=== PATIENT | female | born 1960 | race Caucasian/White ===

== ENCOUNTER 2021-09-15 18:05 | Inpatient (IN) | payer MEDICAID, OTHER ==
[~2021-09-15] VITALS: Ht 165.1 cm; Wt 117.9 kg
[2021-09-15] MEDS ORDERED: ASPirin 81 mg TAB PO ONE (19:00)
[2021-09-15 20:17] LABS: Basophils # (auto) 0 10 ^3/uL (0-0.2); Basophils % (auto) 0.7 % (0.0-2.0); Eosinophils # (auto) 0 10 ^3/uL (0-0.8); Eosinophils % (auto) 0.3 % (0.0-7.0); Hematocrit 48.9 % (36.0-46.0); Hemoglobin 16.4 g/dL (12.2-16.2); Lymphocytes # (auto) 1.1 10 ^3/uL (0.4-5.4); Lymphocytes % (auto) 33.2 % (10.0-50.0); Mean Corpuscular Hemoglobin 30.3 pg (28.0-32.0); Mean Corpuscular Hgb Conc. 33.6 g/dL (32.0-36.0); Mean Corpuscular Volume 90.1 fL (80.0-100.0); Monocytes # (auto) 0.4 10 ^3/uL (0-1.3); Monocytes % (auto) 11.3 % (0.0-12.0); Neutrophils # (auto) 1.8 10 ^3/uL (1.6-8.6); Neutrophils % (auto) 54.5 % (37.0-80.0); Nucleated Red Blood Cells % 0.8 %; Red Blood Cells 5.42 10^6/uL (4.0-5.20); Red Cell Distribution Width 13.1 % (11.8-14.3); White Blood Cell 3.3 10^3/uL (4.4-10.8)
[2021-09-15 20:27] LABS: Albumin 3.4 g/dL (3.4-5.0); Calcium 8.4 mg/dL (8.5-10.1); Magnesium 2.5 mg/dL (1.6-2.6); Potassium 4.2 mmol/L (3.5-5.1)
[2021-09-15 20:33] LABS: BUN/Creatinine Ratio 11.3; Bilirubin, Total 0.5 mg/dL (0.2-1.0); Total Protein 7.1 g/dL (6.4-8.2)
[2021-09-15 23:52] LABS: Urine Bacteria FEW /hpf (None Seen); Urine Blood Negative /uL (Negative); Urine Mucus FEW (None Seen); Urine Specific Gravity 1.024 (1.001-1.035); Urine WBC 3 /hpf (0 - 5)
[2021-09-16] MEDS ORDERED: IOHEXOL 350 MG/ML 100ML IJ ONE (02:10)
[2021-09-16] MEDS ORDERED: SODIUM CHLORIDE 0.9% 1,000 ML IV ONE (02:15)
[2021-09-16] MEDS ORDERED: HYDROcodone-ACET 10/325MG TAB PO ONE (09:30)
[2021-09-16] MEDS ORDERED: AZITHROMYCIN 500MG/ 250ML 250 ML IV ONE (10:15)
[2021-09-16] MEDS ORDERED: cefTRIAXone 1GM/50ML D5W 50 ML IV ONE (10:15)
[2021-09-16] MEDS ORDERED: DexAMETHasone SOD PHOS 10MG/1ML VIAL INJ IV ONE (10:15)
[2021-09-16] MEDS ORDERED: ASCORBIC ACID 500 MG TAB PO ONE (10:30)
[2021-09-16] MEDS ORDERED: ZINC SULFATE 220mg CAP or TAB PO ONE (10:30)
[2021-09-16] MEDS ORDERED: CHOLECALCIFEROL (VITD3) 2,000 UNIT CAP/TAB PO ONE (10:30)
[2021-09-16] MEDS ORDERED: MORPHINE SULFATE INJECTION 2 MG/ML SYRG IV PRN ×2 (13:15→15:00)
[2021-09-16] MEDS ORDERED: NITROGLYCERIN 0.4 MG SL TAB SL PRN ×2 (13:15→15:00)
[2021-09-16] MEDS ORDERED: ONDANSETRON HCL 4 MG/2 ML VIAL IV ONE (13:45)
[2021-09-16] MEDS ORDERED: MORPHINE SULFATE INJECTION 2 MG/ML SYRG IV ONE (13:45)
[2021-09-16] MEDS ORDERED: ACETAMINOPHEN 500 MG TAB PO PRN (14:45)
[2021-09-16] MEDS ORDERED: hydrALAZINE HCL 20 MG/ML VL IV PRN (14:45)
[2021-09-16] MEDS ORDERED: REMDESIVIR PER PHARMACY 0 ML IV SCH (14:45)
[2021-09-16] MEDS ORDERED: ACETAMINOPHEN 325 MG TAB PO PRN (15:00)
[2021-09-16] MEDS ORDERED: LORazepam 0.5 MG TAB PO PRN (15:00)
[2021-09-16] MEDS ORDERED: HYDROcodone-ACET 5/325MG TAB PO PRN (15:00)
[2021-09-16] MEDS ORDERED: FAMOTIDINE (10MG/ML) 2ML VL IV ONE (15:00)
[2021-09-16] MEDS ORDERED: DOCUSATE SOD 100 MG CAP PO PRN (15:00)
[2021-09-16] MEDS ORDERED: PHEN1LIQ97 PO (15:40)
[2021-09-16] MEDS ORDERED: LOP2C PO (15:40)
[2021-09-16] MEDS ORDERED: ASPITAB34 PO (15:40)
[2021-09-16] MEDS ORDERED: GUAI600T23 PO (15:40)
[2021-09-16] MEDS ORDERED: LOSA25TA38 PO (15:40)
[2021-09-16] MEDS ORDERED: PHEN1CAP74 PO (15:40)
[2021-09-16] MEDS ORDERED: PSEU1TAB PO (15:40)
[2021-09-16 16:27] LABS: Potassium 4.3 mmol/L (3.5-5.1)
[2021-09-16 16:40] LABS: Albumin 3.2 g/dL (3.4-5.0); BUN/Creatinine Ratio 15.9; Bilirubin, Total 0.4 mg/dL (0.2-1.0); CRP High Sensitivity 2.36 mg/dL (< 0.3); Calcium 7.8 mg/dL (8.5-10.1); Magnesium 2.7 mg/dL (1.6-2.6); Total Protein 6.4 g/dL (6.4-8.2)
[2021-09-16 16:44] LABS: Thyroid Stimulating Hormone 0.83 uIU/mL (0.358-3.74)
[2021-09-16] MEDS ORDERED: IPRATROPIUM BROM 0.5 MG/2.5ML INH SOL NEB SCH (18:00)
[2021-09-16] MEDS ORDERED: REMDESIVIR 200 MG in NS 210ml LOADING DOSE ADULT IV ONE (18:00)
[2021-09-16] MEDS ORDERED: LORazepam 2MG/ML-1ML VIAL IV ONE (18:30)
[2021-09-16] MEDS: ALBUTEROL SULF HFA 90MCG INH 200DOSE IN PRN (18:59)
[2021-09-16] MEDS: BUDESONIDE (INHALATION) 180 MCG IH IN SCH (18:59)
[2021-09-16 19:32] LABS: Nucleated Red Blood Cells % 0.4 %
[2021-09-16 19:34] LABS: Basophils # (auto) 0 10 ^3/uL (0-0.2); Eosinophils # (auto) 0 10 ^3/uL (0-0.8); Eosinophils % (auto) 0.2 % (0.0-7.0); Hematocrit 45.2 % (36.0-46.0); Hemoglobin 15.3 g/dL (12.2-16.2); Lymphocytes # (auto) 0.5 10 ^3/uL (0.4-5.4); Lymphocytes % (auto) 39.2 % (10.0-50.0); Mean Corpuscular Hemoglobin 30.7 pg (28.0-32.0); Mean Corpuscular Hgb Conc. 33.8 g/dL (32.0-36.0); Mean Corpuscular Volume 90.8 fL (80.0-100.0); Monocytes # (auto) 0 10 ^3/uL (0-1.3); Monocytes % (auto) 3.3 % (0.0-12.0); Neutrophils # (auto) 0.8 10 ^3/uL (1.6-8.6); Neutrophils % (auto) 56.3 % (37.0-80.0); Red Blood Cells 4.98 10^6/uL (4.0-5.20); Red Cell Distribution Width 12.8 % (11.8-14.3)
[2021-09-16 19:42] LABS: Cholesterol 95 mg/dL (< 200); HDL Cholesterol 41 mg/dL (40-59); LDL Cholesterol 48 mg/dL (< 100); Triglycerides 36 mg/dL (< 150)
[2021-09-16 20:24] LABS: White Blood Cell 1.3 10^3/uL (4.4-10.8)
[2021-09-16 22:00] VITALS: BP 137/94
[2021-09-16] MEDS ORDERED: ATORVASTATIN 20 MG TAB PO SCH (22:00)
[2021-09-16] MEDS: AZTREONAM 1GM INJ 1 GM in D5W 5% 50 ML IV SCH (22:06)
[2021-09-16] MEDS: FAMOTIDINE (10MG/ML) 2ML VL IV SCH (22:06)
[2021-09-16] MEDS: ENOXAPARIN SOD 40 MG/0.4 ML SYRINGE SC SCH (22:07)
[2021-09-16] MEDS: MORPHINE SULFATE INJECTION 2 MG/ML SYRG IV PRN (22:24)
[2021-09-16 23:12] VITALS: BP 137/94
[2021-09-17 00:15] VITALS: BP_SYST 137; BP_SYST 94; BP_DIAS 94
[2021-09-17] MEDS: METOCLOPRAMIDE HCL 5MG/ml INJ 2ml VIAL IV PRN (01:17)
[2021-09-17 02:02] LABS: Urine Bacteria NONE SEEN /hpf (None Seen); Urine Blood Negative /uL (Negative); Urine Mucus FEW (None Seen); Urine WBC 1 /hpf (0 - 5)
[2021-09-17 02:12] LABS: Amphetamine Screen, Urine NEGATIVE (NEGATIVE); Barbiturate Scree,Urine NEGATIVE (NEGATIVE); Benzodiazephine Screen, Urine NEGATIVE (NEGATIVE); Cannabinoid Screen, Urine NEGATIVE (NEGATIVE); Cocaine Screen, Urine NEGATIVE (NEGATIVE); Opiate Scree,Urine POSITIVE (NEGATIVE); Phencyclidine Screen, Urine NEGATIVE (NEGATIVE)
[2021-09-17] MEDS: MORPHINE SULFATE INJECTION 2 MG/ML SYRG IV PRN ×2 (02:40→16:26)
[2021-09-17 05:00] VITALS: BP 108/72
[2021-09-17] MEDS: AZTREONAM 1GM INJ 1 GM in D5W 5% 50 ML IV SCH (05:58)
[2021-09-17 06:16] LABS: Basophils # (auto) 0 10 ^3/uL (0-0.2); Basophils % (auto) 0.2 % (0.0-2.0); Eosinophils # (auto) 0 10 ^3/uL (0-0.8); Hematocrit 43.5 % (36.0-46.0); Hemoglobin 14.7 g/dL (12.2-16.2); Lymphocytes # (auto) 0.9 10 ^3/uL (0.4-5.4); Mean Corpuscular Hemoglobin 30.5 pg (28.0-32.0); Mean Corpuscular Hgb Conc. 33.7 g/dL (32.0-36.0); Mean Corpuscular Volume 90.6 fL (80.0-100.0); Monocytes # (auto) 0.3 10 ^3/uL (0-1.3); Monocytes % (auto) 9.1 % (0.0-12.0); Neutrophils # (auto) 1.8 10 ^3/uL (1.6-8.6); Neutrophils % (auto) 60.7 % (37.0-80.0); Nucleated Red Blood Cells % 0.3 %; Red Blood Cells 4.81 10^6/uL (4.0-5.20); Red Cell Distribution Width 12.8 % (11.8-14.3)
[2021-09-17 06:21] LABS: INR 1.01 (0.9-1.15); Partial Thromboplastin Time 29.7 sec (23.6-33.0)
[2021-09-17] MEDS: BUDESONIDE (INHALATION) 180 MCG IH IN SCH ×2 (07:49→19:39)
[2021-09-17] MEDS: ALBUTEROL SULF HFA 90MCG INH 200DOSE IN PRN ×2 (07:49→19:39)
[2021-09-17 08:36] VITALS: BP 120/82
[2021-09-17] MEDS: DexAMETHasone SOD PHOS 10MG/1ML VIAL INJ IV SCH (09:24)
[2021-09-17] MEDS: AZITHROMYCIN 500MG/ 250ML 250 ML IV SCH (09:24)
[2021-09-17] MEDS: FAMOTIDINE (10MG/ML) 2ML VL IV SCH ×2 (09:24→21:44)
[2021-09-17] MEDS: ASPirin 81 mg TAB PO SCH (09:24)
[2021-09-17] MEDS: ASCORBIC ACID 1,000 MG TAB PO SCH (09:25)
[2021-09-17] MEDS: IVERMECTIN 3 MG TAB PO SCH (09:25)
[2021-09-17] MEDS: ZINC SULFATE 220mg CAP or TAB PO SCH (09:25)
[2021-09-17] MEDS: ENOXAPARIN SOD 40 MG/0.4 ML SYRINGE SC SCH ×2 (09:26→21:43)
[2021-09-17 09:28] LABS: Albumin 3.1 g/dL (3.4-5.0); Calcium 8.3 mg/dL (8.5-10.1); Magnesium 2.1 mg/dL (1.6-2.6); Potassium 4.6 mmol/L (3.5-5.1); Uric Acid 5.9 mg/dL (2.6-6.0)
[2021-09-17 09:33] LABS: Bilirubin, Total 0.4 mg/dL (0.2-1.0); Phosphorus 2.8 mg/dL (2.5-4.90)
[2021-09-17 12:33] VITALS: BP 98/56
[2021-09-17] MEDS ORDERED: cefTRIAXone 1GM/50ML D5W 50 ML IV ONE (13:15)
[2021-09-17] MEDS: REMDESIVIR 100mg 100 MG in SODIUM CHL 0.9% 230 ML IV SCH (15:00)
[2021-09-17] MEDS ORDERED: FUROSEMIDE 20 MG/2 ML VIAL IV ONE (16:00)
[2021-09-17] MEDS ORDERED: ACETAMINOPHEN 325 MG TAB PO PRN (16:00)
[2021-09-17] MEDS ORDERED: CHOLECALCIFEROL (VITD3) 2,000 UNIT CAP/TAB PO ONE (16:00)
[2021-09-17 16:55] VITALS: BP 107/73
[2021-09-17] MEDS ORDERED: METOPROLOL SUCCINATE XL 50 MG TAB PO ONE (18:45)
[2021-09-17 21:30] VITALS: BP 106/66
[2021-09-17] MEDS: METOPROLOL TARTRATE 25 MG TAB PO SCH (21:44)
[2021-09-17] MEDS: SALINE 0.65 % NASAL SPRAY 45ML BOTTLE EACHNOSTRI SCH (22:00)
[2021-09-18] MEDS: MORPHINE SULFATE INJECTION 2 MG/ML SYRG IV PRN ×3 (00:04→23:00)
[2021-09-18 05:00] VITALS: BP 112/73
[2021-09-18] MEDS: SALINE 0.65 % NASAL SPRAY 45ML BOTTLE EACHNOSTRI SCH ×4 (05:17→21:28)
[2021-09-18 07:05] LABS: Potassium 4.3 mmol/L (3.5-5.1)
[2021-09-18 07:15] LABS: BUN/Creatinine Ratio 21.7; Bilirubin, Total 0.4 mg/dL (0.2-1.0); Calcium 7.9 mg/dL (8.5-10.1); Total Protein 5.8 g/dL (6.4-8.2)
[2021-09-18 09:00] VITALS: BP 110/63
[2021-09-18] MEDS: DexAMETHasone SOD PHOS 10MG/1ML VIAL INJ IV SCH (10:16)
[2021-09-18] MEDS: FAMOTIDINE (10MG/ML) 2ML VL IV SCH ×2 (10:16→21:28)
[2021-09-18] MEDS: ASPirin 81 mg TAB PO SCH (10:17)
[2021-09-18] MEDS: ENOXAPARIN SOD 40 MG/0.4 ML SYRINGE SC SCH ×2 (10:17→21:29)
[2021-09-18] MEDS: FUROSEMIDE 20 MG/2 ML VIAL IV SCH (10:17)
[2021-09-18] MEDS: ASCORBIC ACID 1,000 MG TAB PO SCH (10:18)
[2021-09-18] MEDS: METOPROLOL TARTRATE 25 MG TAB PO SCH ×2 (10:18→21:43)
[2021-09-18] MEDS: IVERMECTIN 3 MG TAB PO SCH (10:18)
[2021-09-18] MEDS: cefTRIAXone 1GM/50ML D5W 50 ML IV SCH (10:19)
[2021-09-18] MEDS: AZITHROMYCIN 500MG/ 250ML 250 ML IV SCH ×2 (10:19→13:18)
[2021-09-18] MEDS: ZINC SULFATE 220mg CAP or TAB PO SCH (10:19)
[2021-09-18] MEDS: CHOLECALCIFEROL (VITD3) 2,000 UNIT CAP/TAB PO SCH (10:19)
[2021-09-18 13:00] VITALS: BP 112/72
[2021-09-18] MEDS: BUDESONIDE (INHALATION) 180 MCG IH IN SCH ×2 (13:56→21:46)
[2021-09-18] MEDS: ALBUTEROL SULF HFA 90MCG INH 200DOSE IN PRN ×2 (13:57→21:46)
[2021-09-18] MEDS: REMDESIVIR 100mg 100 MG in SODIUM CHL 0.9% 230 ML IV SCH (15:00)
[2021-09-18 17:00] VITALS: BP 90/62
[2021-09-18] MEDS: METOCLOPRAMIDE HCL 5MG/ml INJ 2ml VIAL IV PRN (21:29)
[2021-09-18 22:00] VITALS: BP 113/80
[2021-09-19 05:00] VITALS: BP 104/59
[2021-09-19 06:02] LABS: Albumin 2.8 g/dL (3.4-5.0); Calcium 7.9 mg/dL (8.5-10.1)
[2021-09-19 06:04] LABS: BUN/Creatinine Ratio 20.3
[2021-09-19] MEDS: ALBUTEROL SULF HFA 90MCG INH 200DOSE IN PRN ×2 (06:05→20:13)
[2021-09-19] MEDS: BUDESONIDE (INHALATION) 180 MCG IH IN SCH ×2 (06:05→19:15)
[2021-09-19 06:07] LABS: Bilirubin, Total 0.4 mg/dL (0.2-1.0); Total Protein 5.6 g/dL (6.4-8.2)
[2021-09-19] MEDS: SALINE 0.65 % NASAL SPRAY 45ML BOTTLE EACHNOSTRI SCH ×4 (06:22→21:17)
[2021-09-19 09:00] VITALS: BP 117/64
[2021-09-19] MEDS: cefTRIAXone 1GM/50ML D5W 50 ML IV SCH (09:44)
[2021-09-19] MEDS: IVERMECTIN 3 MG TAB PO SCH (09:44)
[2021-09-19] MEDS: METOPROLOL TARTRATE 25 MG TAB PO SCH ×2 (09:46→21:34)
[2021-09-19] MEDS: ZINC SULFATE 220mg CAP or TAB PO SCH (09:46)
[2021-09-19] MEDS: ASCORBIC ACID 1,000 MG TAB PO SCH (09:46)
[2021-09-19] MEDS: ASPirin 81 mg TAB PO SCH (09:46)
[2021-09-19] MEDS: ENOXAPARIN SOD 40 MG/0.4 ML SYRINGE SC SCH ×2 (09:47→21:18)
[2021-09-19] MEDS: FAMOTIDINE (10MG/ML) 2ML VL IV SCH ×2 (09:47→21:17)
[2021-09-19] MEDS: AZITHROMYCIN 250 MG TAB PO SCH (09:47)
[2021-09-19] MEDS: DexAMETHasone SOD PHOS 10MG/1ML VIAL INJ IV SCH (09:47)
[2021-09-19] MEDS: FUROSEMIDE 20 MG/2 ML VIAL IV SCH (09:47)
[2021-09-19] MEDS: CHOLECALCIFEROL (VITD3) 2,000 UNIT CAP/TAB PO SCH (09:47)
[2021-09-19] MEDS: MORPHINE SULFATE INJECTION 2 MG/ML SYRG IV PRN ×2 (09:48→20:13)
[2021-09-19 09:55] VITALS: BP 96/72
[2021-09-19] MEDS ORDERED: guaiFENesin-DM 100/10mg/5ml SYR PO PRN (11:15)
[2021-09-19 12:32] VITALS: BP 122/76
[2021-09-19] MEDS: REMDESIVIR 100mg 100 MG in SODIUM CHL 0.9% 230 ML IV SCH (15:20)
[2021-09-19 16:52] VITALS: BP 125/77
[2021-09-19 22:00] VITALS: BP 110/59
[2021-09-20] MEDS: MORPHINE SULFATE INJECTION 2 MG/ML SYRG IV PRN ×3 (03:15→17:08)
[2021-09-20 05:00] VITALS: BP 104/68
[2021-09-20] MEDS: SALINE 0.65 % NASAL SPRAY 45ML BOTTLE EACHNOSTRI SCH ×4 (05:42→21:18)
[2021-09-20 05:45] LABS: Basophils # (auto) 0 10 ^3/uL (0-0.2); Basophils % (auto) 0.1 % (0.0-2.0); Eosinophils # (auto) 0 10 ^3/uL (0-0.8); Hemoglobin 15.1 g/dL (12.2-16.2); Lymphocytes # (auto) 1.3 10 ^3/uL (0.4-5.4); Lymphocytes % (auto) 29.5 % (10.0-50.0); Mean Corpuscular Hemoglobin 30.5 pg (28.0-32.0); Mean Corpuscular Hgb Conc. 33.7 g/dL (32.0-36.0); Mean Corpuscular Volume 90.6 fL (80.0-100.0); Monocytes # (auto) 0.5 10 ^3/uL (0-1.3); Monocytes % (auto) 12.4 % (0.0-12.0); Neutrophils # (auto) 2.5 10 ^3/uL (1.6-8.6); Nucleated Red Blood Cells % 0.1 %; Red Blood Cells 4.96 10^6/uL (4.0-5.20); Red Cell Distribution Width 13.1 % (11.8-14.3); White Blood Cell 4.3 10^3/uL (4.4-10.8)
[2021-09-20 06:14] LABS: Albumin 3.1 g/dL (3.4-5.0); BUN/Creatinine Ratio 20.6; Bilirubin, Total 0.4 mg/dL (0.2-1.0); CRP High Sensitivity 0.52 mg/dL (< 0.3); Calcium 8.1 mg/dL (8.5-10.1); Total Protein 6.2 g/dL (6.4-8.2)
[2021-09-20] MEDS: BUDESONIDE (INHALATION) 180 MCG IH IN SCH ×2 (08:46→21:57)
[2021-09-20] MEDS: ALBUTEROL SULF HFA 90MCG INH 200DOSE IN PRN ×2 (08:47→21:57)
[2021-09-20 09:00] VITALS: BP 95/69
[2021-09-20] MEDS: DexAMETHasone SOD PHOS 10MG/1ML VIAL INJ IV SCH (09:26)
[2021-09-20] MEDS: FAMOTIDINE (10MG/ML) 2ML VL IV SCH ×2 (09:27→21:56)
[2021-09-20] MEDS: cefTRIAXone 1GM/50ML D5W 50 ML IV SCH (09:27)
[2021-09-20] MEDS: ASPirin 81 mg TAB PO SCH (09:28)
[2021-09-20] MEDS: METOPROLOL TARTRATE 25 MG TAB PO SCH ×2 (09:29→21:18)
[2021-09-20] MEDS: ZINC SULFATE 220mg CAP or TAB PO SCH (09:29)
[2021-09-20] MEDS: FUROSEMIDE 20 MG/2 ML VIAL IV SCH (09:30)
[2021-09-20] MEDS: CHOLECALCIFEROL (VITD3) 2,000 UNIT CAP/TAB PO SCH (09:31)
[2021-09-20] MEDS: ASCORBIC ACID 1,000 MG TAB PO SCH (09:31)
[2021-09-20] MEDS: IVERMECTIN 3 MG TAB PO SCH (09:31)
[2021-09-20] MEDS: ENOXAPARIN SOD 40 MG/0.4 ML SYRINGE SC SCH ×2 (09:32→21:18)
[2021-09-20] MEDS: AZITHROMYCIN 250 MG TAB PO SCH (11:31)
[2021-09-20 13:00] VITALS: BP 125/64
[2021-09-20] MEDS: REMDESIVIR 100mg 100 MG in SODIUM CHL 0.9% 230 ML IV SCH (15:00)
[2021-09-20 17:00] VITALS: BP 122/72
[2021-09-20 22:00] VITALS: BP 124/74
[2021-09-21 05:00] VITALS: BP 148/88
[2021-09-21] MEDS: ALBUTEROL SULF HFA 90MCG INH 200DOSE IN PRN (06:18)
[2021-09-21] MEDS: BUDESONIDE (INHALATION) 180 MCG IH IN SCH (06:18)
[2021-09-21] MEDS: SALINE 0.65 % NASAL SPRAY 45ML BOTTLE EACHNOSTRI SCH ×3 (06:45→18:02)
[2021-09-21 09:00] VITALS: BP 124/82
[2021-09-21] MEDS: CHOLECALCIFEROL (VITD3) 2,000 UNIT CAP/TAB PO SCH (10:00)
[2021-09-21] MEDS: AZITHROMYCIN 250 MG TAB PO SCH ×2 (10:00→18:00)
[2021-09-21] MEDS: FAMOTIDINE (10MG/ML) 2ML VL IV SCH (10:00)
[2021-09-21] MEDS: cefTRIAXone 1GM/50ML D5W 50 ML IV SCH (10:00)
[2021-09-21] MEDS: DexAMETHasone SOD PHOS 10MG/1ML VIAL INJ IV SCH (10:00)
[2021-09-21] MEDS: ASCORBIC ACID 1,000 MG TAB PO SCH (10:00)
[2021-09-21] MEDS: ASPirin 81 mg TAB PO SCH (10:00)
[2021-09-21] MEDS: METOPROLOL TARTRATE 25 MG TAB PO SCH (10:00)
[2021-09-21] MEDS: FUROSEMIDE 20 MG/2 ML VIAL IV SCH (10:00)
[2021-09-21] MEDS: ENOXAPARIN SOD 40 MG/0.4 ML SYRINGE SC SCH (10:00)
[2021-09-21] MEDS: IVERMECTIN 3 MG TAB PO SCH (10:00)
[2021-09-21] MEDS: ZINC SULFATE 220mg CAP or TAB PO SCH (10:00)
[2021-09-21] MEDS ORDERED: CHOL20007 PO (12:35)
[2021-09-21 13:00] VITALS: BP 100/56
[2021-09-21] MEDS: REMDESIVIR 100mg 100 MG in SODIUM CHL 0.9% 230 ML IV SCH (15:00)
[2021-09-21 16:22] VITALS: BP 107/57
[2021-09-21 16:41] VITALS: BP 100/56
[2021-09-21 17:00] VITALS: BP 107/57
== END 2021-09-21 18:30 | disposition home or self-care (01) | DRG 137 ==
LOC: EDBD 18:05 → ER 18:08 → TELE 09-16 13:14 → TELE-EAST 09-16 20:59
PROVIDERS: ADMIT Hospitalist; ATTEND Internal Medicine
PROC: XW033E5 Introduction of Remdesivir Anti-infective into Peripheral Vein, Percutaneous Approach, New Technology Group 5 (ICD-10-PCS; principal; 2021-09-16)
DX: U07.1 COVID-19 (principal); J96.01 Acute respiratory failure with hypoxia; J12.82 Pneumonia due to coronavirus disease 2019; E66.01 Morbid (severe) obesity due to excess calories; E55.9 Vitamin D deficiency, unspecified; E78.5 Hyperlipidemia, unspecified; F17.210 Nicotine dependence, cigarettes, uncomplicated; J44.0 Chronic obstructive pulmonary disease with (acute) lower respiratory infection; I10 Essential (primary) hypertension; Z86.73 Personal history of transient ischemic attack (TIA), and cerebral infarction without residual deficits; Z88.8 Allergy status to other drugs, medicaments and biological substances; Z88.0 Allergy status to penicillin; Z68.41 Body mass index [BMI] 40.0-44.9, adult
CPT/HCPCS: 36415; 36600; 71045; 71275; 80053; 80061; 80307; 81001; 82306; 82728; 82805; 83036; 83605; 83615; 83735; 83880; 84100; 84443; 84484; 84550; 85025; 85379; 85610; 85730; 86141; 87040; 87081; 87086; 87426; 93005; 94640; 96361; 96365; 96366; 96367; 96368; 96375; G0378; J0696; J1100; J2405; J3490; J7060

== ENCOUNTER 2022-01-28 15:16 | Inpatient (IN) | payer MEDICAID ==
[~2022-01-28] VITALS: Ht 162.6 cm; Wt 121.5 kg
[~2022-01-28 15:16] MED LIST: ASPITAB34 PO; CHOL20007 PO; GUAI600T23 PO; LOP2C PO; LOSA25TA38 PO
[2022-01-28] MEDS ORDERED: ASPirin 81 mg TAB PO ONE (15:30)
[2022-01-28 16:10] LABS: Basophils # (auto) 0 10 ^3/uL (0-0.2); Basophils % (auto) 0.7 % (0.0-2.0); Eosinophils # (auto) 0.4 10 ^3/uL (0-0.8); Eosinophils % (auto) 6.2 % (0.0-7.0); Hematocrit 50.3 % (36.0-46.0); Lymphocytes # (auto) 2.4 10 ^3/uL (0.4-5.4); Lymphocytes % (auto) 37.3 % (10.0-50.0); Mean Corpuscular Hemoglobin 31.6 pg (28.0-32.0); Mean Corpuscular Hgb Conc. 33.8 g/dL (32.0-36.0); Mean Corpuscular Volume 93.5 fL (80.0-100.0); Monocytes # (auto) 0.4 10 ^3/uL (0-1.3); Monocytes % (auto) 6.6 % (0.0-12.0); Neutrophils # (auto) 3.1 10 ^3/uL (1.6-8.6); Neutrophils % (auto) 49.2 % (37.0-80.0); Nucleated Red Blood Cells % 0.2 %; Red Blood Cells 5.37 10^6/uL (4.0-5.20); Red Cell Distribution Width 13.1 % (11.8-14.3); White Blood Cell 6.4 10^3/uL (4.4-10.8)
[2022-01-28 16:24] LABS: Albumin 3.3 g/dL (3.4-5.0); Calcium 9.1 mg/dL (8.5-10.1); Potassium 3.9 mmol/L (3.5-5.1)
[2022-01-28 16:28] LABS: BUN/Creatinine Ratio 9.6; Bilirubin, Total 0.8 mg/dL (0.2-1.0); Total Protein 7.5 g/dL (6.4-8.2)
[2022-01-28 18:13] LABS: Urine Bacteria NONE SEEN /hpf (None Seen); Urine Blood Negative /uL (Negative); Urine WBC 1 /hpf (0 - 5)
[2022-01-28] MEDS ORDERED: NITROGLYCERIN 0.4 MG SL TAB SL PRN (20:45)
[2022-01-28] MEDS ORDERED: ONDANSETRON HCL 4 MG/2 ML VIAL IV PRN (20:45)
[2022-01-28] MEDS ORDERED: MORPHINE SULFATE INJECTION 2 MG/ML SYRG IV PRN (20:45)
[2022-01-28] MEDS: ACETAMINOPHEN 325 MG TAB PO PRN (22:22)
[2022-01-28] MEDS: ATORVASTATIN 20 MG TAB PO SCH (22:22)
[2022-01-29] VITALS (7 sets, daily range): BP systolic 106–154; BP diastolic 45–101
[2022-01-29] MEDS ORDERED: LOSA-69 PO (03:06)
[2022-01-29 06:08] LABS: Basophils # (auto) 0 10 ^3/uL (0-0.2); Basophils % (auto) 0.5 % (0.0-2.0); Eosinophils # (auto) 0.3 10 ^3/uL (0-0.8); Eosinophils % (auto) 4.8 % (0.0-7.0); Hematocrit 43.4 % (36.0-46.0); Hemoglobin 14.9 g/dL (12.2-16.2); Lymphocytes # (auto) 2.7 10 ^3/uL (0.4-5.4); Lymphocytes % (auto) 45.1 % (10.0-50.0); Mean Corpuscular Hemoglobin 31.6 pg (28.0-32.0); Mean Corpuscular Hgb Conc. 34.2 g/dL (32.0-36.0); Mean Corpuscular Volume 92.3 fL (80.0-100.0); Monocytes # (auto) 0.4 10 ^3/uL (0-1.3); Monocytes % (auto) 7.6 % (0.0-12.0); Neutrophils # (auto) 2.5 10 ^3/uL (1.6-8.6); Nucleated Red Blood Cells % 0.2 %; White Blood Cell 5.9 10^3/uL (4.4-10.8)
[2022-01-29] MEDS: ASPirin 81 mg TAB PO SCH (10:35)
[2022-01-29] MEDS: LOSARTAN POTASSIUM 25 MG TAB PO SCH (10:36)
[2022-01-29] MEDS: PANTOPRAZOLE 40 MG TAB PO SCH (10:36)
[2022-01-29] MEDS: ENOXAPARIN SOD 40 MG/0.4 ML SYRINGE SC SCH (10:37)
[2022-01-29] MEDS ORDERED: CLOPIDOGREL BISULFATE 75 MG TAB PO ONE (11:45)
[2022-01-29 12:04] LABS: Cholesterol 149 mg/dL (< 200); HDL Cholesterol 44 mg/dL (40-59); LDL Cholesterol 93 mg/dL (< 100); Triglycerides 68 mg/dL (< 150)
[2022-01-29] MEDS ORDERED: NICOTINE 21MG/24 HR TOPICAL PATCH TD ONE (13:30)
[2022-01-29] MEDS: MORPHINE SULFATE INJECTION 2 MG/ML SYRG IV PRN ×2 (14:22→21:09)
[2022-01-29] MEDS: ACETAMINOPHEN 325 MG TAB PO PRN (17:27)
[2022-01-29] MEDS: ATORVASTATIN 20 MG TAB PO SCH (22:12)
[2022-01-29] MEDS: METOPROLOL TARTRATE 25 MG TAB PO SCH (22:13)
[2022-01-30] VITALS (7 sets, daily range): BP systolic 113–135; BP diastolic 41–77
[2022-01-30] MEDS: MORPHINE SULFATE INJECTION 2 MG/ML SYRG IV PRN ×3 (03:19→17:45)
[2022-01-30] MEDS ORDERED: CLOPIDOGREL BISULFATE 75 MG TAB PO SCH (10:00)
[2022-01-30] MEDS: ASPirin 81 mg TAB PO SCH (10:10)
[2022-01-30] MEDS: LOSARTAN POTASSIUM 25 MG TAB PO SCH (10:11)
[2022-01-30] MEDS: PANTOPRAZOLE 40 MG TAB PO SCH (10:11)
[2022-01-30] MEDS: METOPROLOL TARTRATE 25 MG TAB PO SCH (10:11)
[2022-01-30] MEDS: ENOXAPARIN SOD 40 MG/0.4 ML SYRINGE SC SCH (10:12)
== END 2022-01-30 20:55 | disposition home or self-care (01) | DRG 190 ==
LOC: ER 15:16 → EDBD 15:16 → TELE 20:44 → TELE-WESTW 23:21
PROVIDERS: ADMIT Nurse Practitioner; ATTEND Family Medicine
DX: I21.4 Non-ST elevation (NSTEMI) myocardial infarction (principal); E66.01 Morbid (severe) obesity due to excess calories; I10 Essential (primary) hypertension; N39.0 Urinary tract infection, site not specified; F17.210 Nicotine dependence, cigarettes, uncomplicated; Z20.822 Contact with and (suspected) exposure to COVID-19; Z68.42 Body mass index [BMI] 45.0-49.9, adult; Z83.3 Family history of diabetes mellitus; Z88.5 Allergy status to narcotic agent; Z88.0 Allergy status to penicillin; Z88.8 Allergy status to other drugs, medicaments and biological substances; I69.30 Unspecified sequelae of cerebral infarction; Z71.6 Tobacco abuse counseling
CPT/HCPCS: 36415; 71045; 80053; 80061; 81001; 84443; 84484; 85025; 93005; 93306; G0378

== ENCOUNTER 2022-03-10 15:14 | Inpatient (IN) | payer MEDICAID ==
[~2022-03-10] VITALS: Ht 165.1 cm; Wt 113.5 kg
[~2022-03-10 15:14] MED LIST changes: -GUAI600T23 PO; +LOSA-69 PO; -LOSA25TA38 PO
[2022-03-10] MEDS ORDERED: MORPHINE SULFATE 4 MG/ML SYR/VIAL IV ONE (16:00)
[2022-03-10] MEDS ORDERED: ASPirin 81 mg TAB PO ONE (16:00)
[2022-03-10] MEDS ORDERED: ONDANSETRON HCL 4 MG/2 ML VIAL IV ONE (16:00)
[2022-03-10 18:09] LABS: Basophils # (auto) 0.1 10 ^3/uL (0-0.2); Basophils % (auto) 0.8 % (0.0-2.0); Eosinophils # (auto) 0.3 10 ^3/uL (0-0.8); Eosinophils % (auto) 4.5 % (0.0-7.0); Hematocrit 43.5 % (36.0-46.0); Hemoglobin 15.6 g/dL (12.2-16.2); Lymphocytes % (auto) 31.6 % (10.0-50.0); Mean Corpuscular Hemoglobin 32.6 pg (28.0-32.0); Mean Corpuscular Hgb Conc. 35.8 g/dL (32.0-36.0); Monocytes # (auto) 0.4 10 ^3/uL (0-1.3); Monocytes % (auto) 6.7 % (0.0-12.0); Neutrophils # (auto) 3.5 10 ^3/uL (1.6-8.6); Neutrophils % (auto) 56.4 % (37.0-80.0); Nucleated Red Blood Cells % 0.2 %; Red Blood Cells 4.78 10^6/uL (4.0-5.20); Red Cell Distribution Width 13.1 % (11.8-14.3); White Blood Cell 6.2 10^3/uL (4.4-10.8)
[2022-03-10 18:24] LABS: Albumin 3.3 g/dL (3.4-5.0); Calcium 8.6 mg/dL (8.5-10.1); Magnesium 2.2 mg/dL (1.6-2.6); Potassium 4.3 mmol/L (3.5-5.1)
[2022-03-10 18:28] LABS: BUN/Creatinine Ratio 14.3; Bilirubin, Total 0.8 mg/dL (0.2-1.0); Total Protein 6.9 g/dL (6.4-8.2)
[2022-03-10] MEDS ORDERED: NICOTINE 7MG/24HR TOPICAL PATCH TD ONE (19:45)
[2022-03-10] MEDS ORDERED: SODIUM CHLORIDE 0.9% 1,000 ML IV ONE (19:45)
[2022-03-10] MEDS ORDERED: AZITHROMYCIN 500MG/ 250ML 250 ML IV ONE (19:45)
[2022-03-10] MEDS ORDERED: cefTRIAXone 1GM/50ML D5W 50 ML IV ONE (19:45)
[2022-03-10 20:30] LABS: Cholesterol 153 mg/dL (< 200); Triglycerides 101 mg/dL (< 150)
[2022-03-10 20:33] LABS: HDL Cholesterol 48 mg/dL (40-59); LDL Cholesterol 100 mg/dL (< 100)
[2022-03-10 21:57] LABS: Urine Bacteria MOD /hpf (None Seen); Urine Blood Negative /uL (Negative); Urine Mucus FEW (None Seen); Urine Specific Gravity 1.026 (1.001-1.035); Urine WBC 83 /hpf (0 - 5)
[2022-03-10] MEDS: MORPHINE SULFATE INJ 2 MG/ml SYRG IV PRN (23:46)
[2022-03-11] MEDS: MORPHINE SULFATE INJ 2 MG/ml SYRG IV PRN ×3 (04:33→20:44)
[2022-03-11 05:00] VITALS: BP 135/67
[2022-03-11 06:22] LABS: Basophils # (auto) 0 10 ^3/uL (0-0.2); Basophils % (auto) 0.6 % (0.0-2.0); Eosinophils # (auto) 0.3 10 ^3/uL (0-0.8); Eosinophils % (auto) 4.5 % (0.0-7.0); Hematocrit 40.6 % (36.0-46.0); Hemoglobin 14.3 g/dL (12.2-16.2); Lymphocytes # (auto) 2.4 10 ^3/uL (0.4-5.4); Lymphocytes % (auto) 34.4 % (10.0-50.0); Mean Corpuscular Hemoglobin 32.3 pg (28.0-32.0); Mean Corpuscular Hgb Conc. 35.3 g/dL (32.0-36.0); Mean Corpuscular Volume 91.5 fL (80.0-100.0); Monocytes # (auto) 0.4 10 ^3/uL (0-1.3); Monocytes % (auto) 6.1 % (0.0-12.0); Neutrophils # (auto) 3.7 10 ^3/uL (1.6-8.6); Neutrophils % (auto) 54.4 % (37.0-80.0); Nucleated Red Blood Cells % 0.1 %; Red Blood Cells 4.44 10^6/uL (4.0-5.20); Red Cell Distribution Width 13.5 % (11.8-14.3); White Blood Cell 6.8 10^3/uL (4.4-10.8)
[2022-03-11 06:34] LABS: Albumin 2.9 g/dL (3.4-5.0); Calcium 8.3 mg/dL (8.5-10.1); Potassium 4.1 mmol/L (3.5-5.1)
[2022-03-11 06:38] LABS: BUN/Creatinine Ratio 13.8; Bilirubin, Total 0.6 mg/dL (0.2-1.0)
[2022-03-11] MEDS: NICOTINE 7MG/24HR TOPICAL PATCH TD SCH (08:37)
[2022-03-11] MEDS: cefTRIAXone 1GM/50ML D5W 50 ML IV SCH (08:37)
[2022-03-11] MEDS: AZITHROMYCIN 500MG/ 250ML 250 ML IV SCH (08:37)
[2022-03-11] MEDS: ENOXAPARIN SOD 40 MG/0.4 ML SYRINGE SC SCH (08:38)
[2022-03-11] MEDS: NITROGLYCERIN 0.4 MG SL TAB SL PRN ×2 (08:49→08:56)
[2022-03-11 09:00] VITALS: BP 116/71
[2022-03-11 13:00] VITALS: BP 123/77
[2022-03-11 17:00] VITALS: BP 128/87
[2022-03-11 22:00] VITALS: BP 137/62
[2022-03-12] MEDS: HYDROmorphone HCL 2 MG/ML VL/or syr IV PRN ×5 (00:19→18:04)
[2022-03-12 05:00] VITALS: BP 143/69
[2022-03-12] MEDS: cefTRIAXone 1GM/50ML D5W 50 ML IV SCH (08:25)
[2022-03-12] MEDS: AZITHROMYCIN 500MG/ 250ML 250 ML IV SCH (08:25)
[2022-03-12] MEDS: NICOTINE 7MG/24HR TOPICAL PATCH TD SCH (08:26)
[2022-03-12] MEDS: ENOXAPARIN SOD 40 MG/0.4 ML SYRINGE SC SCH (08:26)
[2022-03-12 09:00] VITALS: BP 109/69
[2022-03-12 13:00] VITALS: BP 148/88
[2022-03-12 17:00] VITALS: BP 149/74
[2022-03-12 18:19] VITALS: BP 163/102
== END 2022-03-12 19:54 | disposition home or self-care (01) | DRG 470 ==
LOC: EDBD 15:14 → ER 15:14 → TELE 19:15 → TELE-EAST 23:20
PROVIDERS: ADMIT Registered Nurse; ATTEND Internal Medicine
PROC: 05HA33Z Insertion of Infusion Device into Left Brachial Vein, Percutaneous Approach (ICD-10-PCS; principal; 2022-03-10)
PROC: B54NZZA Ultrasonography of Left Upper Extremity Veins, Guidance (ICD-10-PCS; 2022-03-10)
DX: I12.9 Hypertensive chronic kidney disease with stage 1 through stage 4 chronic kidney disease, or unspecified chronic kidney disease (principal); E66.01 Morbid (severe) obesity due to excess calories; N18.2 Chronic kidney disease, stage 2 (mild); Z20.822 Contact with and (suspected) exposure to COVID-19; K50.90 Crohn's disease, unspecified, without complications; N30.00 Acute cystitis without hematuria; Z88.0 Allergy status to penicillin; Z88.5 Allergy status to narcotic agent; Z88.8 Allergy status to other drugs, medicaments and biological substances; Z90.49 Acquired absence of other specified parts of digestive tract; Z90.710 Acquired absence of both cervix and uterus; Z86.73 Personal history of transient ischemic attack (TIA), and cerebral infarction without residual deficits; Z72.0 Tobacco use; Z71.6 Tobacco abuse counseling; Z68.41 Body mass index [BMI] 40.0-44.9, adult; Z85.42 Personal history of malignant neoplasm of other parts of uterus
CPT/HCPCS: 36415; 71045; 80053; 80061; 81001; 83735; 83880; 84484; 85025; 87040; 93005; 93306; 96365; 96366; 96367; 96375; G0378; J0696; J2405

== ENCOUNTER 2022-07-20 16:57 | Inpatient (IN) | payer MEDICAID ==
[~2022-07-20] VITALS: Ht 165.1 cm; Wt 126.5 kg
[2022-07-20 17:46] LABS: Basophils # (auto) 0.1 10 ^3/uL (0-0.2); Basophils % (auto) 1.2 % (0.0-2.0); Eosinophils # (auto) 0.4 10 ^3/uL (0-0.8); Eosinophils % (auto) 6.1 % (0.0-7.0); Hemoglobin 15.7 g/dL (12.2-16.2); Lymphocytes # (auto) 2.2 10 ^3/uL (0.4-5.4); Lymphocytes % (auto) 33.6 % (10.0-50.0); Mean Corpuscular Hemoglobin 30.9 pg (28.0-32.0); Mean Corpuscular Hgb Conc. 33.5 g/dL (32.0-36.0); Mean Corpuscular Volume 92.5 fL (80.0-100.0); Monocytes # (auto) 0.5 10 ^3/uL (0-1.3); Monocytes % (auto) 7.5 % (0.0-12.0); Neutrophils # (auto) 3.3 10 ^3/uL (1.6-8.6); Neutrophils % (auto) 51.6 % (37.0-80.0); Nucleated Red Blood Cells % 0.1 %; Red Blood Cells 5.09 10^6/uL (4.0-5.20); Red Cell Distribution Width 12.9 % (11.8-14.3); White Blood Cell 6.4 10^3/uL (4.4-10.8)
[2022-07-20 18:10] LABS: Albumin 3.4 g/dL (3.4-5.0); Calcium 8.6 mg/dL (8.5-10.1); Potassium 4.9 mmol/L (3.5-5.1)
[2022-07-20 18:14] LABS: BUN/Creatinine Ratio 10.2; Bilirubin, Total 0.7 mg/dL (0.2-1.0); Total Protein 6.7 g/dL (6.4-8.2)
[2022-07-20] MEDS ORDERED: ONDANSETRON HCL 4 MG/2 ML VIAL IM ONE (20:30)
[2022-07-20] MEDS ORDERED: MORPHINE SULFATE 4 MG/ML SYR/VIAL IV ONE (20:30)
[2022-07-20 22:30] LABS: Urine Bacteria MANY /hpf (None Seen); Urine Blood 1+ /uL (Negative); Urine Mucus FEW (None Seen); Urine Specific Gravity 1.016 (1.001-1.035); Urine WBC 4 /hpf (0 - 5)
[2022-07-21] MEDS ORDERED: ONDANSETRON HCL 4 MG/2 ML VIAL IV PRN ×2 (01:00→13:15)
[2022-07-21] MEDS ORDERED: NITROGLYCERIN 0.4 MG SL TAB SL PRN (01:00)
[2022-07-21] MEDS ORDERED: TEMAZEPAM 15 MG CAP PO PRN (01:00)
[2022-07-21] MEDS ORDERED: ACETAMINOPHEN 325 MG TAB PO PRN (01:00)
[2022-07-21] MEDS ORDERED: cloNIDine HCL 0.1 MG TAB PO PRN (06:15)
[2022-07-21] MEDS: MORPHINE SULFATE INJ 2 MG/ml SYRG IV PRN ×3 (07:06→23:18)
[2022-07-21] MEDS: levoFLOXacin 500MG 100 ML IV SCH (09:59)
[2022-07-21] MEDS: LOSARTAN POTASSIUM 50 MG TAB PO SCH (10:00)
[2022-07-21] MEDS ORDERED: PANTOPRAZOLE 40 MG TAB PO SCH (10:00)
[2022-07-21] MEDS: ENOXAPARIN SOD 40 MG/0.4 ML SYRINGE SC SCH (10:00)
[2022-07-21] MEDS ORDERED: ACETAMINOPHEN 500 MG TAB PO PRN (13:15)
[2022-07-21] MEDS: HYDROcodone-ACET 5/325MG TAB PO PRN (13:27)
[2022-07-21 15:56] VITALS: BP 144/56
[2022-07-21 17:00] VITALS: BP 149/53
[2022-07-21] MEDS: FUROSEMIDE 20 MG TAB PO SCH (18:00)
[2022-07-21 22:00] VITALS: BP 112/54
[2022-07-21] MEDS: ATORVASTATIN 20 MG TAB PO SCH (22:37)
[2022-07-22] MEDS: MORPHINE SULFATE INJ 2 MG/ml SYRG IV PRN ×5 (03:15→21:31)
[2022-07-22 05:00] VITALS: BP 109/65
[2022-07-22] MEDS: FUROSEMIDE 20 MG TAB PO SCH ×2 (05:10→17:30)
[2022-07-22 08:03] LABS: Basophils # (auto) 0 10 ^3/uL (0-0.2); Basophils % (auto) 0.7 % (0.0-2.0); Eosinophils # (auto) 0.3 10 ^3/uL (0-0.8); Eosinophils % (auto) 5.2 % (0.0-7.0); Hematocrit 43.5 % (36.0-46.0); Hemoglobin 14.4 g/dL (12.2-16.2); Lymphocytes # (auto) 2.1 10 ^3/uL (0.4-5.4); Lymphocytes % (auto) 33.8 % (10.0-50.0); Mean Corpuscular Hemoglobin 30.7 pg (28.0-32.0); Mean Corpuscular Hgb Conc. 33.2 g/dL (32.0-36.0); Mean Corpuscular Volume 92.7 fL (80.0-100.0); Monocytes # (auto) 0.6 10 ^3/uL (0-1.3); Monocytes % (auto) 9.3 % (0.0-12.0); Neutrophils # (auto) 3.1 10 ^3/uL (1.6-8.6); Red Blood Cells 4.69 10^6/uL (4.0-5.20); Red Cell Distribution Width 12.9 % (11.8-14.3); White Blood Cell 6.2 10^3/uL (4.4-10.8)
[2022-07-22 08:12] LABS: BUN/Creatinine Ratio 16.3; Calcium 8.4 mg/dL (8.5-10.1); Potassium 4.7 mmol/L (3.5-5.1)
[2022-07-22 08:53] VITALS: BP 134/82
[2022-07-22] MEDS: LOSARTAN POTASSIUM 50 MG TAB PO SCH (09:19)
[2022-07-22] MEDS: ENOXAPARIN SOD 40 MG/0.4 ML SYRINGE SC SCH (09:20)
[2022-07-22] MEDS: levoFLOXacin 500MG 100 ML IV SCH (09:52)
[2022-07-22 13:00] VITALS: BP 146/61
[2022-07-22 16:53] VITALS: BP 120/40
[2022-07-22] MEDS: ATORVASTATIN 20 MG TAB PO SCH (21:29)
[2022-07-22] MEDS: METOPROLOL TARTRATE 25 MG TAB PO SCH (21:40)
[2022-07-22 22:00] VITALS: BP 105/59
[2022-07-23] MEDS: MORPHINE SULFATE INJ 2 MG/ml SYRG IV PRN ×3 (03:07→20:39)
[2022-07-23 05:00] VITALS: BP 138/78
[2022-07-23] MEDS: FUROSEMIDE 20 MG TAB PO SCH ×2 (05:27→17:52)
[2022-07-23 09:00] VITALS: BP 105/53
[2022-07-23] MEDS: HYDROcodone-ACET 5/325MG TAB PO PRN (09:24)
[2022-07-23] MEDS: METOPROLOL TARTRATE 25 MG TAB PO SCH ×2 (09:28→21:40)
[2022-07-23] MEDS: LOSARTAN POTASSIUM 50 MG TAB PO SCH (09:29)
[2022-07-23] MEDS: levoFLOXacin 500MG 100 ML IV SCH (09:30)
[2022-07-23] MEDS: ENOXAPARIN SOD 40 MG/0.4 ML SYRINGE SC SCH (09:38)
[2022-07-23 12:49] VITALS: BP 120/51
[2022-07-23 17:00] VITALS: BP 127/70
[2022-07-23] MEDS: ATORVASTATIN 20 MG TAB PO SCH (21:39)
[2022-07-23 22:00] VITALS: BP 130/80
[2022-07-24] MEDS: MORPHINE SULFATE INJ 2 MG/ml SYRG IV PRN ×3 (01:27→11:01)
[2022-07-24 05:00] VITALS: BP 141/80
[2022-07-24] MEDS: FUROSEMIDE 20 MG TAB PO SCH (05:37)
[2022-07-24 08:00] VITALS: BP 120/48
[2022-07-24] MEDS ORDERED: LEVO500T31 PO (10:13)
[2022-07-24] MEDS: LOSARTAN POTASSIUM 50 MG TAB PO SCH (11:00)
[2022-07-24] MEDS: METOPROLOL TARTRATE 25 MG TAB PO SCH (11:00)
[2022-07-24] MEDS: levoFLOXacin 500MG 100 ML IV SCH (11:01)
[2022-07-24] MEDS: ENOXAPARIN SOD 40 MG/0.4 ML SYRINGE SC SCH (11:01)
[2022-07-24 11:34] VITALS: BP 120/48
[2022-07-24 12:38] VITALS: BP 120/48
== END 2022-07-24 13:51 | disposition home or self-care (01) | DRG 194 ==
LOC: ER 16:57 → EDBD 16:57 → TELE 07-21 00:52 → TELE-CENTR 07-21 15:57
PROVIDERS: ADMIT Nurse Practitioner; ATTEND Nurse Practitioner Acute Care
DX: I11.0 Hypertensive heart disease with heart failure (principal); E66.01 Morbid (severe) obesity due to excess calories; F17.210 Nicotine dependence, cigarettes, uncomplicated; Z20.822 Contact with and (suspected) exposure to COVID-19; N39.0 Urinary tract infection, site not specified; Z86.73 Personal history of transient ischemic attack (TIA), and cerebral infarction without residual deficits; Z90.710 Acquired absence of both cervix and uterus; Z88.0 Allergy status to penicillin; Z88.5 Allergy status to narcotic agent; Z88.8 Allergy status to other drugs, medicaments and biological substances; Z90.49 Acquired absence of other specified parts of digestive tract; Z68.42 Body mass index [BMI] 45.0-49.9, adult; Z83.3 Family history of diabetes mellitus; R07.9 Chest pain, unspecified; I50.31 Acute diastolic (congestive) heart failure
CPT/HCPCS: 36415; 70450; 71045; 80048; 80053; 81001; 83880; 84484; 85025; 85379; 87426; 93005; 96365; 96372; 96375; 96376; G0378; J1956; J2405

== ENCOUNTER 2023-03-17 12:56 | Inpatient (IN) | payer MEDICAID ==
[~2023-03-17] VITALS: Ht 167.6 cm; Wt 90.9 kg
[~2023-03-17 12:56] MED LIST changes: +LEVO500T31 PO; -LOSA-69 PO; +LOSA50TA46 PO
[2023-03-17] MEDS ORDERED: SODIUM CHLORIDE 0.9% 1,000 ML IV ONE (13:15)
[2023-03-17 13:40] LABS: Basophils # (auto) 0.1 10 ^3/uL (0-0.2); Eosinophils # (auto) 0.4 10 ^3/uL (0-0.8); Eosinophils % (auto) 5.4 % (0.0-7.0); Hematocrit 48.4 % (36.0-46.0); Hemoglobin 16.3 g/dL (12.2-16.2); Lymphocytes # (auto) 2.1 10 ^3/uL (0.4-5.4); Lymphocytes % (auto) 30.3 % (10.0-50.0); Mean Corpuscular Hemoglobin 31.5 pg (28.0-32.0); Mean Corpuscular Hgb Conc. 33.6 g/dL (32.0-36.0); Mean Corpuscular Volume 93.8 fL (80.0-100.0); Monocytes # (auto) 0.6 10 ^3/uL (0-1.3); Monocytes % (auto) 8.5 % (0.0-12.0); Neutrophils # (auto) 3.8 10 ^3/uL (1.6-8.6); Neutrophils % (auto) 54.8 % (37.0-80.0); Nucleated Red Blood Cells % 0.2 %; Red Blood Cells 5.17 10^6/uL (4.0-5.20); Red Cell Distribution Width 13.4 % (11.8-14.3); White Blood Cell 6.9 10^3/uL (4.4-10.8)
[2023-03-17 14:22] LABS: Albumin 3.5 g/dL (3.4-5.0); BUN/Creatinine Ratio 12.2 (10.0-20.0); Calcium 8.8 mg/dL (8.5-10.1); Potassium 4.1 mmol/L (3.5-5.1)
[2023-03-17 14:24] LABS: Bilirubin, Total 0.5 mg/dL (0.2-1.0)
[2023-03-17] MEDS ORDERED: MORPHINE SULFATE INJ 2 MG/ml SYRG IV PRN (19:00)
[2023-03-17] MEDS ORDERED: PANTOPRAZOLE 40 MG/10 ML VIAL INJ IV ONE (19:00)
[2023-03-17] MEDS ORDERED: ACETAMINOPHEN 325 MG TAB PO PRN (19:00)
[2023-03-17] MEDS ORDERED: LOPERAMIDE HCL 2 MG CAP/TAB PO SCH (19:00)
[2023-03-17 19:28] LABS: Cholesterol 145 mg/dL (< 200); Triglycerides 89 mg/dL (< 150)
[2023-03-17 19:30] LABS: HDL Cholesterol 58 mg/dL (40-59); LDL Cholesterol 91 mg/dL (< 100)
[2023-03-17] MEDS ORDERED: KETOROLAC TROMETH 30 MG/ML 1ML VIAL IV ONE (19:30)
[2023-03-17 19:40] LABS: Bilirubin, Total 0.7 mg/dL (0.2-1.0)
[2023-03-17] MEDS: HYDROcodone-ACET 5/325MG TAB PO PRN (21:55)
[2023-03-18] MEDS: HYDROcodone-ACET 5/325MG TAB PO PRN ×3 (05:04→12:39)
[2023-03-18 07:21] LABS: Basophils # (auto) 0 10 ^3/uL (0-0.2); Basophils % (auto) 0.7 % (0.0-2.0); Eosinophils # (auto) 0.3 10 ^3/uL (0-0.8); Eosinophils % (auto) 4.1 % (0.0-7.0); Hematocrit 48.9 % (36.0-46.0); Hemoglobin 16.6 g/dL (12.2-16.2); Lymphocytes # (auto) 2.4 10 ^3/uL (0.4-5.4); Lymphocytes % (auto) 36.1 % (10.0-50.0); Mean Corpuscular Hemoglobin 32.1 pg (28.0-32.0); Mean Corpuscular Hgb Conc. 33.9 g/dL (32.0-36.0); Mean Corpuscular Volume 94.5 fL (80.0-100.0); Monocytes # (auto) 0.5 10 ^3/uL (0-1.3); Monocytes % (auto) 8.2 % (0.0-12.0); Neutrophils # (auto) 3.4 10 ^3/uL (1.6-8.6); Neutrophils % (auto) 50.9 % (37.0-80.0); Nucleated Red Blood Cells % 0.1 %; Red Blood Cells 5.18 10^6/uL (4.0-5.20); Red Cell Distribution Width 13.8 % (11.8-14.3); White Blood Cell 6.6 10^3/uL (4.4-10.8)
[2023-03-18 07:25] LABS: Calcium 8.8 mg/dL (8.5-10.1)
[2023-03-18 07:29] LABS: BUN/Creatinine Ratio 14.3 (10.0-20.0); Bilirubin, Total 1.1 mg/dL (0.2-1.0); Total Protein 7.2 g/dL (6.4-8.2)
[2023-03-18] MEDS ORDERED: PANTOPRAZOLE 40 MG/10 ML VIAL INJ IV SCH (10:00)
[2023-03-18] MEDS ORDERED: LOSARTAN POTASSIUM 50 MG TAB PO SCH (10:00)
[2023-03-18] MEDS ORDERED: ENOXAPARIN SOD 40 MG/0.4 ML SYRINGE SC SCH (10:00)
[2023-03-18] MEDS ORDERED: CHOLECALCIFEROL (VITD3) 2,000 UNIT CAP/TAB PO SCH (10:00)
[2023-03-18] MEDS: SODIUM CHLORIDE 0.9% 1,000 ML IV SCH ×2 (12:38→19:05)
[2023-03-18 20:12] VITALS: BP 115/74
== END 2023-03-18 23:26 | disposition left against medical advice (07) | DRG 249 ==
LOC: EDBD 12:56 → ER 12:56 → OVERFLOW 18:55
PROVIDERS: ADMIT Nurse Practitioner Family; ATTEND Hospitalist
DX: K52.9 Noninfective gastroenteritis and colitis, unspecified (principal); E66.01 Morbid (severe) obesity due to excess calories; F17.210 Nicotine dependence, cigarettes, uncomplicated; I10 Essential (primary) hypertension; Z53.29 Procedure and treatment not carried out because of patient's decision for other reasons; M54.9 Dorsalgia, unspecified; Z86.73 Personal history of transient ischemic attack (TIA), and cerebral infarction without residual deficits; Z88.0 Allergy status to penicillin; Z88.5 Allergy status to narcotic agent; Z88.8 Allergy status to other drugs, medicaments and biological substances; Z90.710 Acquired absence of both cervix and uterus; Z90.49 Acquired absence of other specified parts of digestive tract; Z68.32 Body mass index [BMI] 32.0-32.9, adult
CPT/HCPCS: 36415; 71045; 74176; 80053; 80061; 82150; 82247; 83690; 84443; 84484; 85025; 85379; 85652; 86141; 86256; 86671; 93005; 96361; 96372; 96374; C9113; G0378

== ENCOUNTER 2024-01-27 23:30 | Emergency (ER) | payer MEDICAID ==
[~2024-01-27] VITALS: Ht 152.4 cm; Wt 113.4 kg
[~2024-01-27 23:30] MED LIST changes: +LOSA-534 PO; -LOSA50TA46 PO
[2024-01-28 02:41] LABS: Basophils # (auto) 0.1 10 ^3/uL (0-0.2); Eosinophils # (auto) 0.1 10 ^3/uL (0-0.8); Eosinophils % (auto) 2.7 % (0.0-7.0); Hematocrit 48.7 % (36.0-46.0); Hemoglobin 16.3 g/dL (12.2-16.2); Lymphocytes % (auto) 35.6 % (10.0-50.0); Mean Corpuscular Hemoglobin 31.2 pg (28.0-32.0); Mean Corpuscular Hgb Conc. 33.5 g/dL (32.0-36.0); Mean Corpuscular Volume 93.3 fL (80.0-100.0); Monocytes # (auto) 0.4 10 ^3/uL (0-1.3); Monocytes % (auto) 7.1 % (0.0-12.0); Neutrophils % (auto) 53.6 % (37.0-80.0); Nucleated Red Blood Cells % 0.1 %; Red Blood Cells 5.22 10^6/uL (4.0-5.20); Red Cell Distribution Width 13.6 % (11.8-14.3); White Blood Cell 5.6 10^3/uL (4.4-10.8)
[2024-01-28 02:46] LABS: Chloride 110 mmol/L (98-107); Potassium 3.8 mmol/L (3.5-5.1); Sodium 138 mmol/L (136-145)
[2024-01-28 02:47] LABS: Anion Gap 2 (5-15); Calcium 9.5 mg/dL (8.7-10.4); Carbon Dioxide 26 mmol/L (20-30)
[2024-01-28 02:52] LABS: BUN/Creatinine Ratio 6.4 (10.0-20.0); Blood Urea Nitrogen 5 mg/dL (9-23); Glucose 90 mg/dL (74-106)
[2024-01-28] MEDS ORDERED: ACET-1304 PO (04:59)
[2024-01-28 05:10] VITALS: PULSE 76; RESP 16; O2SAT 98
[2024-01-28] MEDS: MECLIZINE HCL 25 MG TAB PO ONE (05:27)
[2024-01-28] MEDS: ONDANSETRON ODT 4 MG TAB PO ONE (05:27)
[2024-01-28] MEDS: HYDROcodone-ACET 5/325MG TAB PO ONE (05:27)
[2024-01-28 08:05] VITALS: BP 123/71; PULSE 69; RESP 18; TEMP 98.7; O2SAT 95
== END 2024-01-28 04:59 | disposition home or self-care (01) ==
LOC: EDBD 23:30 → ER 23:30
DX: S80.02XA Contusion of left knee, initial encounter (principal); S09.90XA Unspecified injury of head, initial encounter; I11.0 Hypertensive heart disease with heart failure; I50.9 Heart failure, unspecified; F17.210 Nicotine dependence, cigarettes, uncomplicated; Z98.51 Tubal ligation status; Z90.710 Acquired absence of both cervix and uterus; Z90.49 Acquired absence of other specified parts of digestive tract; Z86.73 Personal history of transient ischemic attack (TIA), and cerebral infarction without residual deficits; W18.39XA Other fall on same level, initial encounter; Y93.89 Activity, other specified; Y92.009 Unspecified place in unspecified non-institutional (private) residence as the place of occurrence of the external cause; Y99.8 Other external cause status
CPT/HCPCS: 36415; 70450; 72125; 73562; 80048; 84484; 85025; 93005; 99285; J8597; Q0162

== ENCOUNTER 2024-04-03 13:23 | Inpatient (IN) | payer MEDICAID ==
[~2024-04-03] VITALS: Ht 165.1 cm; Wt 111.6 kg
[~2024-04-03 13:23] MED LIST changes: +ACET-1304 PO
[2024-04-03] MEDS: ONDANSETRON HCL 4 MG/2 ML VIAL IV ONE (14:04)
[2024-04-03] MEDS: SODIUM CHLORIDE 0.9% 1,000 ML IV ONE (14:05)
[2024-04-03 14:27] LABS: Basophils # (auto) 0 10 ^3/uL (0-0.2); Basophils % (auto) 0.7 % (0.0-2.0); Eosinophils # (auto) 0.3 10 ^3/uL (0-0.8); Eosinophils % (auto) 3.7 % (0.0-7.0); Hematocrit 46.7 % (36.0-46.0); Hemoglobin 15.8 g/dL (12.2-16.2); Lymphocytes # (auto) 2.5 10 ^3/uL (0.4-5.4); Lymphocytes % (auto) 34.4 % (10.0-50.0); Mean Corpuscular Hemoglobin 32.3 pg (28.0-32.0); Mean Corpuscular Hgb Conc. 33.9 g/dL (32.0-36.0); Mean Corpuscular Volume 95.3 fL (80.0-100.0); Monocytes # (auto) 0.6 10 ^3/uL (0-1.3); Monocytes % (auto) 7.6 % (0.0-12.0); Neutrophils # (auto) 3.9 10 ^3/uL (1.6-8.6); Neutrophils % (auto) 53.6 % (37.0-80.0); Nucleated Red Blood Cells % 0.1 %; Red Cell Distribution Width 13.9 % (11.8-14.3); White Blood Cell 7.3 10^3/uL (4.4-10.8)
[2024-04-03] MEDS: HYDROcodone-ACET 5/325MG TAB PO ONE (14:27)
[2024-04-03] MEDS: KETOROLAC TROMETH 30 MG/ML 1ML VIAL IV ONE (14:27)
[2024-04-03 14:41] LABS: INR 1.01 (0.9-1.15); Partial Thromboplastin Time 24.3 SEC (24.5-34.5); Prothrombin Time 10.7 sec (9.3-11.8)
[2024-04-03 14:44] LABS: Alanine Aminotransferase 21 U/L (7-40); Albumin 4.2 g/dL (3.2-4.8); Alkaline Phosphatase 117 U/L (46-116); Anion Gap 5 (5-15); Aspartate Aminotransferase 13 U/L (13-40); BUN/Creatinine Ratio 7.2 (10.0-20.0); Bilirubin, Total 1.1 mg/dL (0.2-1.0); Blood Urea Nitrogen 6 mg/dL (9-23); Calcium 9.8 mg/dL (8.5-10.1); Carbon Dioxide 27 mmol/L (20-30); Chloride 110 mmol/L (98-107); Glucose 93 mg/dL (74-106); Potassium 3.3 mmol/L (3.5-5.1); Sodium 142 mmol/L (136-145); Total Protein 6.9 g/dL (5.7-8.2)
[2024-04-03] MEDS ORDERED: ASPI-325 PO (17:24)
[2024-04-03] MEDS ORDERED: CLOP75TA70 PO (17:24)
[2024-04-03] MEDS ORDERED: ATOR-47 PO (17:24)
[2024-04-03] MEDS ORDERED: HYDROcodone-ACET 5/325MG TAB PO PRN (17:30)
[2024-04-03] MEDS ORDERED: MORPHINE SULFATE INJ 2 MG/ml SYRG IV PRN (17:30)
[2024-04-03 18:21] LABS: Urine Amorphous Crystal FEW /hpf (None Seen); Urine Bacteria MANY /hpf (None Seen); Urine Blood Negative /uL (Negative); Urine Clarity Turbid (Clear); Urine Color Yellow (Yellow); Urine Mucus FEW (None Seen); Urine Protein, UAD Negative (Negative); Urine Specific Gravity 1.017 (1.001-1.035); Urine Urobilinogen Normal (Negative); Urine WBC <1 /hpf (0 - 5); Urine pH 5.5 (5.0-9.0)
[2024-04-03] MEDS: NICOTINE 14 MG/24HR TOPICAL PATCH TD ONE (18:36)
[2024-04-03 20:00] VITALS: PULSE 63; RESP 20; O2SAT 94
[2024-04-03] MEDS: NITROGLYCERIN 0.4 MG SL TAB SL PRN (22:34)
[2024-04-03 22:41] VITALS: BP 135/74; PULSE 53; PULSE 62; RESP 18; TEMP 97.9; O2SAT 98
[2024-04-03] MEDS: ATORVASTATIN 20 MG TAB PO SCH (22:58)
[2024-04-03] MEDS: ONDANSETRON HCL 4 MG/2 ML VIAL IV PRN (22:58)
[2024-04-03] MEDS: MORPHINE SULFATE INJ 2 MG/ml SYRG IV PRN (22:59)
[2024-04-04] VITALS (8 sets, daily range): BP systolic 104–146; BP diastolic 52–90; PULSE 51–66; RESP 15–18; TEMP 97.6–98.2; O2SAT 91–99
[2024-04-04 05:59] LABS: Basophils # (auto) 0 10 ^3/uL (0-0.2); Basophils % (auto) 0.5 % (0.0-2.0); Eosinophils # (auto) 0.3 10 ^3/uL (0-0.8); Eosinophils % (auto) 4.9 % (0.0-7.0); Hematocrit 41.1 % (36.0-46.0); Hemoglobin 13.8 g/dL (12.2-16.2); Lymphocytes % (auto) 32.4 % (10.0-50.0); Mean Corpuscular Hemoglobin 32.1 pg (28.0-32.0); Mean Corpuscular Hgb Conc. 33.7 g/dL (32.0-36.0); Mean Corpuscular Volume 95.4 fL (80.0-100.0); Monocytes # (auto) 0.4 10 ^3/uL (0-1.3); Monocytes % (auto) 6.9 % (0.0-12.0); Neutrophils # (auto) 3.4 10 ^3/uL (1.6-8.6); Neutrophils % (auto) 55.3 % (37.0-80.0); Red Blood Cells 4.31 10^6/uL (4.0-5.20); Red Cell Distribution Width 13.7 % (11.8-14.3); White Blood Cell 6.1 10^3/uL (4.4-10.8)
[2024-04-04 06:20] LABS: Alanine Aminotransferase 18 U/L (7-40); Albumin 3.4 g/dL (3.2-4.8); Alkaline Phosphatase 93 U/L (46-116); Aspartate Aminotransferase 14 U/L (13-40); BUN/Creatinine Ratio 6.1 (10.0-20.0); Bilirubin, Total 1.2 mg/dL (0.2-1.0); Blood Urea Nitrogen 5 mg/dL (9-23); Chloride 112 mmol/L (98-107); Glucose 88 mg/dL (74-106); Potassium 3.8 mmol/L (3.5-5.1); Sodium 141 mmol/L (136-145); Total Protein 5.6 g/dL (5.7-8.2)
[2024-04-04 06:21] LABS: Anion Gap 6 (5-15); Carbon Dioxide 23 mmol/L (20-30)
[2024-04-04] MEDS: CLOPIDOGREL BISULFATE 75 MG TAB PO SCH (10:40)
[2024-04-04] MEDS: ACETAMINOPHEN 325 MG TAB PO PRN (10:40)
[2024-04-04] MEDS: ASPirin-EC 81 mg tab PO SCH (10:41)
[2024-04-04] MEDS: NICOTINE 14 MG/24HR TOPICAL PATCH TD SCH (10:41)
[2024-04-04] MEDS: LOSARTAN POTASSIUM 50 MG TAB PO SCH (10:41)
[2024-04-04] MEDS ORDERED: DULO20CA PO (11:24)
[2024-04-04 11:49] LABS: Magnesium 1.8 mg/dL (1.6-2.6)
[2024-04-04 11:51] LABS: Phosphorus 4.6 mg/dL (2.4-5.1)
[2024-04-04] MEDS: ENOXAPARIN SOD 30 MG/0.3 ML SYRINGE SC ONE (12:30)
[2024-04-04 17:04] LABS: Folate (Folic Acid) 29.63 ng/mL (>5.38)
[2024-04-04] MEDS: HYDROcodone-ACET 5/325MG TAB PO ONE (20:29)
[2024-04-04] MEDS: ERGOCALCIFEROL 50,000 UNIT(1.25MG) CAP PO SCH (20:31)
[2024-04-04] MEDS: CYANOCOBALAMIN (B-12) 1000 MCG/1 ML VIAL IM ONE (20:31)
[2024-04-04] MEDS: ENOXAPARIN SOD 30 MG/0.3 ML SYRINGE SC SCH (23:30)
[2024-04-05] VITALS (7 sets, daily range): BP systolic 109–155; BP diastolic 61–77; PULSE 49–70; RESP 16–18; TEMP 97.8–98.5; O2SAT 91–97
[2024-04-05] MEDS: LORazepam 0.5 MG TAB PO PRN (01:03)
[2024-04-05 01:40] LABS: COVID19 ANTIGEN SOFIA FIA NEGATIVE (NEGATIVE); Rapid Influenza A Negative (Negative); Rapid Influenza B Negative (Negative)
[2024-04-05] MEDS: HYDROcodone-ACET 5/325MG TAB PO ONE ×2 (05:00→21:54)
[2024-04-05] MEDS: CYANOCOBALAMIN (B-12) 1000 MCG/1 ML VIAL IM SCH (09:51)
[2024-04-05] MEDS: CYANOCOBALAMIN (B-12) 1000 MCG/1 ML VIAL IM ONE (12:41)
[2024-04-05] MEDS: LOPERAMIDE HCL 2 MG CAP/TAB PO ONE (21:55)
[2024-04-06] VITALS (7 sets, daily range): BP systolic 107–157; BP diastolic 62–78; PULSE 54–73; RESP 16–20; TEMP 36.5; O2SAT 92–96
[2024-04-06] MEDS: IBUPROFEN 600 MG TAB PO ONE (03:23)
[2024-04-06] MEDS: HYDROcodone-ACET 5/325MG TAB PO PRN (04:16)
[2024-04-06] MEDS ORDERED: CHOL500021 OR (07:40)
[2024-04-06] MEDS ORDERED: CYAN100056 PO (07:40)
[2024-04-06] MEDS: CYANOCOBALAMIN (B-12) 1000 MCG/1 ML VIAL IM SCH (10:24)
[2024-04-06] MEDS ORDERED: ERGO1CAP23 PO (15:24)
[2024-04-11 10:06] LABS: Methylmalonic Acid 324 nmol/L (0-378)
== END 2024-04-06 16:45 | disposition home or self-care (01) | DRG 199 ==
LOC: ER 13:23 → EDUNIT# 13:23 → EDBD 13:23 → TELE 17:24 → TELE-CENTR 22:15 → CENTRAL 04-05 21:19
PROVIDERS: ADMIT Internal Medicine; ATTEND Anesthesiology
DX: I16.0 Hypertensive urgency (principal); I69.351 Hemiplegia and hemiparesis following cerebral infarction affecting right dominant side; I50.9 Heart failure, unspecified; E53.8 Deficiency of other specified B group vitamins; I11.0 Hypertensive heart disease with heart failure; E55.9 Vitamin D deficiency, unspecified; E66.01 Morbid (severe) obesity due to excess calories; Z68.41 Body mass index [BMI] 40.0-44.9, adult; F17.210 Nicotine dependence, cigarettes, uncomplicated; K50.90 Crohn's disease, unspecified, without complications; Z20.822 Contact with and (suspected) exposure to COVID-19; Z79.02 Long term (current) use of antithrombotics/antiplatelets; Z79.82 Long term (current) use of aspirin; Z88.5 Allergy status to narcotic agent; Z88.0 Allergy status to penicillin; Z88.8 Allergy status to other drugs, medicaments and biological substances; Z79.899 Other long term (current) drug therapy; Z90.710 Acquired absence of both cervix and uterus; Z83.3 Family history of diabetes mellitus; Z80.8 Family history of malignant neoplasm of other organs or systems; Z90.49 Acquired absence of other specified parts of digestive tract
CPT/HCPCS: 36415; 70450; 71045; 80053; 81001; 82306; 82607; 82746; 83036; 83735; 83880; 84100; 84443; 84484; 85025; 85610; 85730; 87081; 87426; 87493; 87804; 93005; 93306; 93886; 96361; 96374; 97110; 97116; 97163; 97530; 99291; G0378; J1885; J2405

== ENCOUNTER 2024-05-29 11:37 | Inpatient (IN) | payer MEDICAID ==
[~2024-05-29] VITALS: Ht 165.1 cm; Wt 118.5 kg
[~2024-05-29 11:37] MED LIST changes: +ASPI-325 PO; -ASPITAB34 PO; +ATOR-47 PO; -CHOL20007 PO; +CHOL500021 OR; +CLOP75TA70 PO; +CYAN100056 PO; +DULO20CA PO; +ERGO1CAP23 PO; -LEVO500T31 PO; -LOP2C PO
[2024-05-29 11:56] LABS: Basophils # (auto) 0.1 10 ^3/uL (0-0.2); Basophils % (auto) 0.8 % (0.0-2.0); Eosinophils # (auto) 0.2 10 ^3/uL (0-0.8); Eosinophils % (auto) 3.9 % (0.0-7.0); Hematocrit 45.4 % (36.0-46.0); Hemoglobin 15.6 g/dL (12.2-16.2); Lymphocytes # (auto) 2.3 10 ^3/uL (0.4-5.4); Lymphocytes % (auto) 36.6 % (10.0-50.0); Mean Corpuscular Hemoglobin 32.7 pg (28.0-32.0); Mean Corpuscular Hgb Conc. 34.4 g/dL (32.0-36.0); Mean Corpuscular Volume 95.1 fL (80.0-100.0); Monocytes # (auto) 0.5 10 ^3/uL (0-1.3); Monocytes % (auto) 8.1 % (0.0-12.0); Neutrophils # (auto) 3.2 10 ^3/uL (1.6-8.6); Neutrophils % (auto) 50.6 % (37.0-80.0); Nucleated Red Blood Cells % 0.1 %; Platelet Count (auto) 180 10^3/uL (140-450); Red Blood Cells 4.77 10^6/uL (4.0-5.20); Red Cell Distribution Width 13.1 % (11.8-14.3); White Blood Cell 6.4 10^3/uL (4.4-10.8)
[2024-05-29 12:09] VITALS: PULSE 71; RESP 16; O2SAT 93
[2024-05-29 12:11] LABS: Partial Thromboplastin Time 25.3 SEC (24.5-34.5); Prothrombin Time 10.6 sec (9.3-11.8)
[2024-05-29 12:13] LABS: Alanine Aminotransferase 15 U/L (7-40); Albumin 3.9 g/dL (3.2-4.8); Alkaline Phosphatase 137 U/L (46-116); Anion Gap 1 (5-15); Aspartate Aminotransferase 13 U/L (13-40); BUN/Creatinine Ratio 7.1 (10.0-20.0); Bilirubin, Total 0.6 mg/dL (0.2-1.0); Blood Urea Nitrogen 6 mg/dL (9-23); Calcium 9.5 mg/dL (8.7-10.4); Carbon Dioxide 30 mmol/L (20-30); Chloride 111 mmol/L (98-107); Glucose 147 mg/dL (74-106); Sodium 142 mmol/L (136-145); Total Protein 6.4 g/dL (5.7-8.2)
[2024-05-29] MEDS: FAMOTIDINE (10MG/ML) 2ML VL IV ONE (12:22)
[2024-05-29] MEDS: MAALOX PLUS or MAALOX 30 ML PO ONE (12:22)
[2024-05-29] MEDS ORDERED: ACETAMINOPHEN 325 MG TAB PO PRN (14:30)
[2024-05-29] MEDS ORDERED: NITROGLYCERIN 0.4 MG SL TAB SL PRN (14:30)
[2024-05-29] MEDS ORDERED: ERGOCALCIFEROL 50,000 UNIT(1.25MG) CAP PO SCH (15:00)
[2024-05-29 15:12] LABS: Triglycerides 95 mg/dL (< 150)
[2024-05-29 15:13] LABS: LDL Cholesterol 44 mg/dL (< 100)
[2024-05-29 15:14] LABS: Cholesterol 115 mg/dL (< 200); HDL Cholesterol 55 mg/dL (40-59)
[2024-05-29] MEDS: NICOTINE 7MG/24HR TOPICAL PATCH TD ONE (15:38)
[2024-05-29] MEDS: PANTOPRAZOLE 40 MG/10 ML VIAL INJ IV ONE (16:58)
[2024-05-29] MEDS: MORPHINE SULFATE INJ 2 MG/ml SYRG IV PRN ×2 (17:02→21:15)
[2024-05-29] MEDS: ONDANSETRON HCL 4 MG/2 ML VIAL IV PRN (17:19)
[2024-05-29 19:30] VITALS: PULSE 63; RESP 15; O2SAT 87
[2024-05-29 21:00] VITALS: BP 115/58; PULSE 62; RESP 19; TEMP 98.2; O2SAT 92
[2024-05-29] MEDS: ATORVASTATIN 20 MG TAB PO SCH (21:43)
[2024-05-30] VITALS (7 sets, daily range): BP systolic 116–144; BP diastolic 53–85; PULSE 57–74; RESP 15–20; TEMP 97.9–98.5; O2SAT 90–95
[2024-05-30] MEDS: DULoxetine HCL 30 MG CAP PO SCH (10:00)
[2024-05-30] MEDS: PANTOPRAZOLE 40 MG/10 ML VIAL INJ IV SCH (10:21)
[2024-05-30] MEDS: CLOPIDOGREL BISULFATE 75 MG TAB PO SCH (10:24)
[2024-05-30] MEDS: ASPirin-EC 81 mg tab PO SCH (10:24)
[2024-05-30] MEDS: LOSARTAN POTASSIUM 50 MG TAB PO SCH (10:24)
[2024-05-30] MEDS: ENOXAPARIN SOD 40 MG/0.4 ML SYRINGE SC SCH (10:25)
[2024-05-30] MEDS: NICOTINE 7MG/24HR TOPICAL PATCH TD SCH (10:38)
[2024-05-30 10:49] LABS: Alanine Aminotransferase 15 U/L (7-40); Albumin 3.8 g/dL (3.2-4.8); Alkaline Phosphatase 101 U/L (46-116); Aspartate Aminotransferase 15 U/L (13-40); BUN/Creatinine Ratio 8.7 (10.0-20.0); Blood Urea Nitrogen 8 mg/dL (9-23); Carbon Dioxide 30 mmol/L (20-30); Chloride 108 mmol/L (98-107); Glucose 107 mg/dL (74-106); Sodium 136 mmol/L (136-145)
[2024-05-30 10:50] LABS: Bilirubin, Total 1.4 mg/dL (0.2-1.0); Total Protein 6.2 g/dL (5.7-8.2)
[2024-05-30 11:11] LABS: Anion Gap -2 (5-15)
[2024-05-30 14:16] LABS: Basophils # (auto) 0 10 ^3/uL (0-0.2); Basophils % (auto) 0.6 % (0.0-2.0); Eosinophils # (auto) 0.2 10 ^3/uL (0-0.8); Hematocrit 42.9 % (36.0-46.0); Hemoglobin 14.5 g/dL (12.2-16.2); Lymphocytes # (auto) 1.7 10 ^3/uL (0.4-5.4); Lymphocytes % (auto) 28.2 % (10.0-50.0); Mean Corpuscular Hemoglobin 32.3 pg (28.0-32.0); Mean Corpuscular Hgb Conc. 33.8 g/dL (32.0-36.0); Mean Corpuscular Volume 95.6 fL (80.0-100.0); Monocytes # (auto) 0.5 10 ^3/uL (0-1.3); Monocytes % (auto) 7.8 % (0.0-12.0); Neutrophils # (auto) 3.6 10 ^3/uL (1.6-8.6); Neutrophils % (auto) 59.4 % (37.0-80.0); Nucleated Red Blood Cells % 0.1 %; Platelet Count (auto) 161 10^3/uL (140-450); Red Blood Cells 4.49 10^6/uL (4.0-5.20); Red Cell Distribution Width 12.9 % (11.8-14.3); White Blood Cell 6.1 10^3/uL (4.4-10.8)
[2024-05-30 15:28] LABS: Urine Bacteria FEW /hpf (None Seen); Urine Blood Negative /uL (Negative); Urine Clarity Turbid (Clear); Urine Color Yellow (Yellow); Urine Mucus FEW (None Seen); Urine Protein, UAD Negative (Negative); Urine Specific Gravity 1.019 (1.001-1.035); Urine Urobilinogen Normal (Negative); Urine WBC 6 /hpf (0 - 5); Urine pH 5.5 (5.0-9.0)
[2024-05-30 15:29] LABS: Amphetamine Screen, Urine Neg (NEGATIVE); Benzodiazephine Screen, Urine Neg (NEGATIVE)
[2024-05-30 15:30] LABS: Barbiturate Scree,Urine Neg (NEGATIVE); Cannabinoid Screen, Urine Neg (NEGATIVE); Cocaine Screen, Urine Neg (NEGATIVE); Opiate Scree,Urine Pos (NEGATIVE); Phencyclidine Screen, Urine Neg (NEGATIVE)
[2024-05-30] MEDS: CYANOCOBALAMIN (B-12) 1000 MCG/1 ML VIAL IM ONE (16:30)
[2024-05-31 01:00] VITALS: BP 107/58; PULSE 67; RESP 19; TEMP 97.7; O2SAT 97
[2024-05-31 04:55] VITALS: BP 125/64; PULSE 57; RESP 18; TEMP 97.6; O2SAT 95
[2024-05-31 07:30] VITALS: PULSE 65; RESP 19; O2SAT 98
[2024-05-31] MEDS ORDERED: CYAN1TAB11 PO (07:38)
[2024-05-31 08:41] VITALS: BP 138/92; PULSE 61; RESP 20; TEMP 98.9; O2SAT 96
[2024-05-31] MEDS ORDERED: ERGO1CAP23 PO (11:30)
[2024-05-31 13:06] VITALS: BP 139/67; PULSE 57; RESP 20; TEMP 98.9; O2SAT 93
[2024-05-31 13:34] VITALS: BP 138/92; PULSE 61; RESP 20; TEMP 98.9; O2SAT 96
[2024-05-31] MEDS: HYDROcodone-ACET 5/325MG TAB PO PRN (14:25)
== END 2024-05-31 14:30 | disposition home or self-care (01) | DRG 203 ==
LOC: EDUNIT# 11:37 → ER 11:37 → EDBD 11:37 → TELE 14:39 → TELE-WESTW 21:50 → WEST WING 05-30 23:14
PROVIDERS: ADMIT Internal Medicine; ATTEND Internal Medicine
DX: M94.0 Chondrocostal junction syndrome [Tietze] (principal); I11.0 Hypertensive heart disease with heart failure; I50.32 Chronic diastolic (congestive) heart failure; E55.9 Vitamin D deficiency, unspecified; I25.10 Atherosclerotic heart disease of native coronary artery without angina pectoris; E66.01 Morbid (severe) obesity due to excess calories; E78.5 Hyperlipidemia, unspecified; F32.A Depression, unspecified; Z83.3 Family history of diabetes mellitus; Z80.8 Family history of malignant neoplasm of other organs or systems; F17.200 Nicotine dependence, unspecified, uncomplicated; Z79.02 Long term (current) use of antithrombotics/antiplatelets; Z88.0 Allergy status to penicillin; Z86.73 Personal history of transient ischemic attack (TIA), and cerebral infarction without residual deficits; Z90.710 Acquired absence of both cervix and uterus; Z68.41 Body mass index [BMI] 40.0-44.9, adult
CPT/HCPCS: 36415; 71045; 80053; 80061; 80307; 81001; 83036; 83880; 84443; 84484; 85025; 85610; 85730; 93005; 96374; G0378; J2405; J2470; J3490

== ENCOUNTER 2024-07-26 14:19 | Inpatient (IN) | payer MEDICAID ==
[~2024-07-26] VITALS: Ht 165.1 cm; Wt 115.9 kg
[~2024-07-26 14:19] MED LIST changes: -ACET-1304 PO; -CHOL500021 OR; +CYAN1TAB11 PO; +CYAN1TAB14 PO; +ERGO1CAP12 PO
[2024-07-26 14:55] LABS: Basophils # (auto) 0 10 ^3/uL (0-0.2); Basophils % (auto) 1.1 % (0.0-2.0); Eosinophils # (auto) 0.1 10 ^3/uL (0-0.8); Eosinophils % (auto) 2.6 % (0.0-7.0); Hematocrit 47.5 % (36.0-46.0); Hemoglobin 16.3 g/dL (12.2-16.2); Lymphocytes # (auto) 1.6 10 ^3/uL (0.4-5.4); Lymphocytes % (auto) 37.7 % (10.0-50.0); Mean Corpuscular Hgb Conc. 34.3 g/dL (32.0-36.0); Mean Corpuscular Volume 93.3 fL (80.0-100.0); Monocytes # (auto) 0.3 10 ^3/uL (0-1.3); Monocytes % (auto) 7.6 % (0.0-12.0); Neutrophils # (auto) 2.1 10 ^3/uL (1.6-8.6); Nucleated Red Blood Cells % 0.3 %; Platelet Count (auto) 207 10^3/uL (140-450); Red Blood Cells 5.09 10^6/uL (4.0-5.20); White Blood Cell 4.2 10^3/uL (4.4-10.8)
[2024-07-26 15:08] LABS: INR 1.02 (0.9-1.15); Partial Thromboplastin Time 26.4 SEC (24.5-34.5); Prothrombin Time 10.8 sec (9.3-11.8)
[2024-07-26 15:13] LABS: Alanine Aminotransferase 14 U/L (7-40); Albumin 4.2 g/dL (3.2-4.8); Alkaline Phosphatase 112 U/L (46-116); Anion Gap 6 (5-15); Aspartate Aminotransferase 10 U/L (13-40); BUN/Creatinine Ratio 15.1 (10.0-20.0); Bilirubin, Total 1.3 mg/dL (0.2-1.0); Blood Urea Nitrogen 13 mg/dL (9-23); Calcium 9.8 mg/dL (8.7-10.4); Carbon Dioxide 29 mmol/L (20-31); Chloride 107 mmol/L (98-107); Glucose 99 mg/dL (74-106); Magnesium 1.8 mg/dL (1.6-2.6); Potassium 3.7 mmol/L (3.5-5.1); Sodium 142 mmol/L (136-145); Total Protein 6.8 g/dL (5.7-8.2)
[2024-07-26 16:18] LABS: Urine Bacteria FEW /hpf (None Seen); Urine Blood 2+ /uL (Negative); Urine Clarity Turbid (Clear); Urine Color Yellow (Yellow); Urine Mucus FEW (None Seen); Urine Protein, UAD 1+ (Negative); Urine Specific Gravity 1.038 (1.001-1.035); Urine Urobilinogen 2 mg/dL (Negative); Urine WBC 5 /hpf (0 - 5)
[2024-07-26] MEDS ORDERED: NITROGLYCERIN 0.4 MG SL TAB SL PRN (17:45)
[2024-07-26 18:36] VITALS: PULSE 66; RESP 19; O2SAT 96
[2024-07-26] MEDS: ONDANSETRON HCL 4 MG/2 ML VIAL IV ONE (18:48)
[2024-07-26] MEDS: MORPHINE SULFATE 4 MG/ML SYR/VIAL IV ONE (18:48)
[2024-07-26] MEDS: SODIUM CHLORIDE 0.9% 1,000 ML IV ONE (18:48)
[2024-07-26] MEDS: HYDROcodone-ACET 5/325MG TAB PO PRN (19:03)
[2024-07-26 19:15] VITALS: PULSE 91; RESP 19; O2SAT 96
[2024-07-26] MEDS: ONDANSETRON HCL 4 MG/2 ML VIAL IV PRN (20:21)
[2024-07-26] MEDS: MORPHINE SULFATE INJ 2 MG/ml SYRG IV PRN (20:32)
[2024-07-26 21:15] VITALS: BP 118/70; PULSE 82; RESP 18; TEMP 97.8; O2SAT 93
[2024-07-26] MEDS: ATORVASTATIN 20 MG TAB PO SCH (22:46)
[2024-07-27] VITALS (8 sets, daily range): BP systolic 101–131; BP diastolic 62–88; PULSE 54–84; RESP 16–20; TEMP 97.1–98.4; O2SAT 20–97
[2024-07-27 06:16] LABS: Chloride 110 mmol/L (98-107); Potassium 4.1 mmol/L (3.5-5.1); Sodium 140 mmol/L (136-145)
[2024-07-27 06:17] LABS: Anion Gap 7 (5-15); Carbon Dioxide 23 mmol/L (20-31)
[2024-07-27 06:18] LABS: Calcium 9.5 mg/dL (8.7-10.4)
[2024-07-27 06:22] LABS: Glucose 120 mg/dL (74-106)
[2024-07-27 06:23] LABS: BUN/Creatinine Ratio 10.4 (10.0-20.0); Basophils # (auto) 0 10 ^3/uL (0-0.2); Basophils % (auto) 0.8 % (0.0-2.0); Blood Urea Nitrogen 12 mg/dL (9-23); Eosinophils # (auto) 0.1 10 ^3/uL (0-0.8); Eosinophils % (auto) 1.1 % (0.0-7.0); Hematocrit 46.1 % (36.0-46.0); Hemoglobin 15.9 g/dL (12.2-16.2); Lymphocytes # (auto) 2.1 10 ^3/uL (0.4-5.4); Mean Corpuscular Hemoglobin 32.8 pg (28.0-32.0); Mean Corpuscular Hgb Conc. 34.4 g/dL (32.0-36.0); Mean Corpuscular Volume 95.4 fL (80.0-100.0); Monocytes # (auto) 0.5 10 ^3/uL (0-1.3); Monocytes % (auto) 7.4 % (0.0-12.0); Neutrophils # (auto) 3.6 10 ^3/uL (1.6-8.6); Neutrophils % (auto) 57.7 % (37.0-80.0); Nucleated Red Blood Cells % 0.3 %; Platelet Count (auto) 206 10^3/uL (140-450); Red Blood Cells 4.84 10^6/uL (4.0-5.20); Red Cell Distribution Width 13.1 % (11.8-14.3); White Blood Cell 6.2 10^3/uL (4.4-10.8)
[2024-07-27] MEDS: MORPHINE SULFATE INJ 2 MG/ml SYRG IV PRN (06:59)
[2024-07-27] MEDS: LOSARTAN POTASSIUM 50 MG TAB PO SCH (10:27)
[2024-07-27] MEDS: CLOPIDOGREL BISULFATE 75 MG TAB PO SCH (10:27)
[2024-07-27] MEDS: ASPirin-EC 81 mg tab PO SCH (10:27)
[2024-07-27] MEDS: DULoxetine HCL 30 MG CAP PO SCH (10:27)
[2024-07-27] MEDS: PANTOPRAZOLE 40 MG/10 ML VIAL INJ IV SCH (10:27)
[2024-07-28] VITALS (8 sets, daily range): BP systolic 109–142; BP diastolic 60–70; PULSE 53–73; RESP 17–20; TEMP 97.5–98.5; O2SAT 92–98
[2024-07-28 06:53] LABS: Chloride 110 mmol/L (98-107); Potassium 4.2 mmol/L (3.5-5.1); Sodium 140 mmol/L (136-145)
[2024-07-28 06:54] LABS: Anion Gap 6 (5-15); Carbon Dioxide 24 mmol/L (20-31)
[2024-07-28 06:55] LABS: Calcium 8.9 mg/dL (8.7-10.4)
[2024-07-28 06:59] LABS: BUN/Creatinine Ratio 16.5 (10.0-20.0); Blood Urea Nitrogen 17 mg/dL (9-23); Glucose 97 mg/dL (74-106)
[2024-07-28 09:21] LABS: Basophils # (auto) 0 10 ^3/uL (0-0.2); Basophils % (auto) 0.9 % (0.0-2.0); Eosinophils # (auto) 0.2 10 ^3/uL (0-0.8); Eosinophils % (auto) 4.1 % (0.0-7.0); Hematocrit 44.3 % (36.0-46.0); Lymphocytes # (auto) 1.5 10 ^3/uL (0.4-5.4); Lymphocytes % (auto) 26.1 % (10.0-50.0); Mean Corpuscular Volume 94.1 fL (80.0-100.0); Monocytes # (auto) 0.4 10 ^3/uL (0-1.3); Monocytes % (auto) 7.4 % (0.0-12.0); Neutrophils # (auto) 3.5 10 ^3/uL (1.6-8.6); Neutrophils % (auto) 61.5 % (37.0-80.0); Nucleated Red Blood Cells % 0.1 %; Platelet Count (auto) 215 10^3/uL (140-450); Red Cell Distribution Width 13.1 % (11.8-14.3); White Blood Cell 5.7 10^3/uL (4.4-10.8)
[2024-07-28] MEDS ORDERED: hydrOXYzine HCL 10 MG TAB PO PRN (20:30)
[2024-07-28] MEDS: DULoxetine HCL 30 MG CAP PO SCH (21:38)
[2024-07-29] VITALS (8 sets, daily range): BP systolic 112–132; BP diastolic 59–78; PULSE 61–82; RESP 16–20; TEMP 97.5–97.8; O2SAT 92–98
[2024-07-29 00:01] LABS: Urine Bacteria MANY /hpf (None Seen); Urine Blood Negative /uL (Negative); Urine Clarity Turbid (Clear); Urine Color Yellow (Yellow); Urine Mucus FEW (None Seen); Urine Protein, UAD Negative (Negative); Urine Specific Gravity 1.028 (1.001-1.035); Urine Urobilinogen Normal (Negative); Urine WBC 14 /hpf (0 - 5); Urine pH 5.5 (5.0-9.0)
[2024-07-29] MEDS: NITROFURANTOIN 100 mg CAP PO ONE (02:52)
[2024-07-29 08:01] LABS: Chloride 109 mmol/L (98-107); Potassium 3.9 mmol/L (3.5-5.1); Sodium 140 mmol/L (136-145)
[2024-07-29 08:02] LABS: Anion Gap 4 (5-15); Calcium 9.2 mg/dL (8.7-10.4); Carbon Dioxide 27 mmol/L (20-31)
[2024-07-29 08:08] LABS: BUN/Creatinine Ratio 16.5 (10.0-20.0); Blood Urea Nitrogen 16 mg/dL (9-23); Glucose 89 mg/dL (74-106)
[2024-07-29] MEDS: cefTRIAXone 1GM/50ML D5W 50 ML IV SCH (09:48)
[2024-07-29] MEDS ORDERED: NITROFURANTOIN 100 mg CAP PO SCH (10:00)
[2024-07-30] VITALS (7 sets, daily range): BP systolic 122–149; BP diastolic 57–84; PULSE 56–69; RESP 17–22; TEMP 97–98.3; O2SAT 8–100
[2024-07-30 10:54] LABS: Basophils # (auto) 0 10 ^3/uL (0-0.2); Basophils % (auto) 0.6 % (0.0-2.0); Eosinophils # (auto) 0.2 10 ^3/uL (0-0.8); Eosinophils % (auto) 4.4 % (0.0-7.0); Hematocrit 41.1 % (36.0-46.0); Hemoglobin 14.1 g/dL (12.2-16.2); Lymphocytes # (auto) 1.7 10 ^3/uL (0.4-5.4); Lymphocytes % (auto) 30.8 % (10.0-50.0); Mean Corpuscular Hemoglobin 32.2 pg (28.0-32.0); Mean Corpuscular Hgb Conc. 34.3 g/dL (32.0-36.0); Monocytes # (auto) 0.5 10 ^3/uL (0-1.3); Monocytes % (auto) 9.7 % (0.0-12.0); Neutrophils % (auto) 54.5 % (37.0-80.0); Nucleated Red Blood Cells % 0.1 %; Platelet Count (auto) 207 10^3/uL (140-450); Red Blood Cells 4.38 10^6/uL (4.0-5.20); White Blood Cell 5.5 10^3/uL (4.4-10.8)
[2024-07-30 11:39] LABS: Chloride 112 mmol/L (98-107); Sodium 142 mmol/L (136-145)
[2024-07-30 11:40] LABS: Anion Gap 4 (5-15); Carbon Dioxide 26 mmol/L (20-31)
[2024-07-30 11:45] LABS: Glucose 106 mg/dL (74-106)
[2024-07-30 11:46] LABS: BUN/Creatinine Ratio 11.4 (10.0-20.0); Blood Urea Nitrogen 9 mg/dL (9-23)
[2024-07-31] VITALS (8 sets, daily range): BP systolic 123–161; BP diastolic 63–89; PULSE 59–69; RESP 15–24; TEMP 97.7–98.2; O2SAT 93–95
[2024-08-01] MEDS: MELATONIN 5 MG TAB PO ONE (00:12)
[2024-08-01 00:29] VITALS: BP 113/56; PULSE 65; RESP 14; TEMP 98.2; O2SAT 95
[2024-08-01 04:48] VITALS: BP 112/70; PULSE 61; RESP 14; TEMP 97.8; O2SAT 99
[2024-08-01 08:00] VITALS: PULSE 70; RESP 18; O2SAT 98
[2024-08-01 08:45] VITALS: BP_SYST 121; BP_SYST 144; BP_DIAS 67; BP_DIAS 78; PULSE 81; RESP 18; TEMP 98; O2SAT 97
[2024-08-01 10:55] LABS: Basophils # (auto) 0 10 ^3/uL (0-0.2); Basophils % (auto) 0.9 % (0.0-2.0); Eosinophils # (auto) 0.2 10 ^3/uL (0-0.8); Eosinophils % (auto) 4.3 % (0.0-7.0); Hemoglobin 14.4 g/dL (12.2-16.2); Lymphocytes # (auto) 1.8 10 ^3/uL (0.4-5.4); Mean Corpuscular Hemoglobin 32.1 pg (28.0-32.0); Mean Corpuscular Hgb Conc. 34.2 g/dL (32.0-36.0); Mean Corpuscular Volume 93.9 fL (80.0-100.0); Monocytes # (auto) 0.5 10 ^3/uL (0-1.3); Monocytes % (auto) 10.1 % (0.0-12.0); Neutrophils # (auto) 2.4 10 ^3/uL (1.6-8.6); Neutrophils % (auto) 47.7 % (37.0-80.0); Nucleated Red Blood Cells % 0.2 %; Platelet Count (auto) 201 10^3/uL (140-450); Red Blood Cells 4.47 10^6/uL (4.0-5.20); White Blood Cell 4.9 10^3/uL (4.4-10.8)
[2024-08-01 11:05] LABS: Chloride 110 mmol/L (98-107); Sodium 141 mmol/L (136-145)
[2024-08-01 11:06] LABS: Anion Gap 2 (5-15); Calcium 9.3 mg/dL (8.7-10.4); Carbon Dioxide 29 mmol/L (20-31)
[2024-08-01 11:11] LABS: BUN/Creatinine Ratio 9.6 (10.0-20.0); Blood Urea Nitrogen 9 mg/dL (9-23); Glucose 83 mg/dL (74-106)
[2024-08-01 13:00] VITALS: BP 139/72; PULSE 56; RESP 17; TEMP 97.8; O2SAT 94
[2024-08-01] MEDS ORDERED: LORazepam 2MG/ML-1ML VIAL IV ONE (16:15)
[2024-08-01] MEDS: LORazepam 0.5 MG TAB PO ONE (16:36)
[2024-08-01 17:08] VITALS: BP 142/76; PULSE 62; RESP 18; TEMP 98.2; O2SAT 94
[2024-08-01] MEDS: MELATONIN 5 MG TAB PO SCH (22:27)
[2024-08-02 06:27] LABS: Chloride 110 mmol/L (98-107); Potassium 4.1 mmol/L (3.5-5.1); Sodium 142 mmol/L (136-145)
[2024-08-02 06:28] LABS: Anion Gap 4 (5-15); Calcium 9.5 mg/dL (8.7-10.4); Carbon Dioxide 28 mmol/L (20-31)
[2024-08-02 06:33] LABS: BUN/Creatinine Ratio 8.7 (10.0-20.0); Blood Urea Nitrogen 9 mg/dL (9-23); Glucose 98 mg/dL (74-106)
[2024-08-02 08:00] VITALS: RESP 18
[2024-08-02 09:00] VITALS: BP 145/71; PULSE 60; RESP 20; TEMP 97.8; O2SAT 95
[2024-08-02] MEDS ORDERED: DULO1CAP5 PO (10:28)
[2024-08-02 12:36] VITALS: BP 145/71; TEMP 36.6
[2024-08-02 13:00] VITALS: BP 122/76; PULSE 77; RESP 21; TEMP 97.9; O2SAT 97
[2024-08-02 16:40] VITALS: BP 114/72; PULSE 85; RESP 21; TEMP 97.9; O2SAT 97
== END 2024-08-02 17:30 | disposition home or self-care (01) | DRG 203 ==
LOC: ER 14:19 → EDBD 14:19 → TELE 17:41 → TELE-CENTR 21:14 → CENTRAL 07-31 13:51
PROVIDERS: ADMIT Internal Medicine Geriatric Medicine; ATTEND Internal Medicine Geriatric Medicine
PROC: 05HA33Z Insertion of Infusion Device into Left Brachial Vein, Percutaneous Approach (ICD-10-PCS; principal; 2024-08-01)
PROC: B54NZZA Ultrasonography of Left Upper Extremity Veins, Guidance (ICD-10-PCS; 2024-08-01)
DX: M94.0 Chondrocostal junction syndrome [Tietze] (principal); N17.0 Acute kidney failure with tubular necrosis; R45.851 Suicidal ideations; I50.30 Unspecified diastolic (congestive) heart failure; I11.0 Hypertensive heart disease with heart failure; E78.5 Hyperlipidemia, unspecified; F32.A Depression, unspecified; F17.200 Nicotine dependence, unspecified, uncomplicated; K21.9 Gastro-esophageal reflux disease without esophagitis; N30.01 Acute cystitis with hematuria; Z88.0 Allergy status to penicillin; Z88.5 Allergy status to narcotic agent; Z90.710 Acquired absence of both cervix and uterus; Z90.49 Acquired absence of other specified parts of digestive tract; Z98.51 Tubal ligation status; Z83.3 Family history of diabetes mellitus; Z80.8 Family history of malignant neoplasm of other organs or systems; Z91.51 Personal history of suicidal behavior; Z79.82 Long term (current) use of aspirin; I69.351 Hemiplegia and hemiparesis following cerebral infarction affecting right dominant side; Z88.8 Allergy status to other drugs, medicaments and biological substances; Z79.899 Other long term (current) drug therapy
CPT/HCPCS: 36415; 71045; 80048; 80053; 81001; 83735; 83880; 84484; 85025; 85610; 85730; 93005; 96374; 97110; 97116; 97163; 97530; 99291; G0378; J2405; J2470

== ENCOUNTER 2024-09-05 01:14 | Inpatient (IN) | payer MEDICAID ==
[~2024-09-05] VITALS: Ht 167.6 cm; Wt 121.0 kg
[~2024-09-05 01:14] MED LIST changes: -CYAN100056 PO; -CYAN1TAB11 PO; +DULO1CAP5 PO; -ERGO1CAP23 PO
--- NOTE | 2024-09-05 02:03 | ED.PDOC ---
GI ASSESSMENT HPI Comments 63-year-old female with a history of Crohn's disease, hypertension, CVA, CHF and dyslipidemia brought in by EMS from home complaining of nausea and vomiting for the last 2 days. Patient states her vomit was black/dark brown in color. She denies any abdominal pain. She states she is unsure if she has had a fever, however she does feel generally weak with malaise. Paramedics note that initially patient's blood pressure was normal while lying down, but when patient stood up to ambulate she became hypotensive and her oxygen saturation dropped to the 80s on room air. She was placed on 2 L nasal cannula and oxygen saturation improved to 92%. Patient denies any shortness of breath or chest pain. She denies any dysuria or diarrhea. She reports decreased urine output and constipation. Chief Complaint: Nausea/Vomiting Time Seen by MD: 01:19 Primary Care Provider: TOYA Allergies: Coded Allergies: Codeine (Verified Allergy, Unknown, 03/10/22) Ketorolac (Verified Allergy, Unknown, 03/10/22) Penicillins (Verified Allergy, Unknown, 03/10/22) Tromethamine (Verified Allergy, Unknown, 03/10/22) Home Meds Active Scripts Duloxetine HCl (Duloxetine HCl) 30 Mg Cap, 30 MG PO BID for 30 Days, #60 CAP Prov:FARIDEH SCHAFER RESIDENT 08/02/24 Reported Medications Ergocalciferol (Vitamin D) 50,000 Unit Cap, 1 CAP PO QWEEKLY for 28 Days, #4 07/28/24 Cyanocobalamin (B12) 1,000 Mcg Tab, 1 TAB PO DAILY for 14 Days, #14 07/28/24 Duloxetine Hcl (Cymbalta) 20 Mg Cap, 30 MG PO DAILY 04/04/24 Clopidogrel Bisulfate (CLOPIDOGREL) 75 Mg Tab, 1 TAB PO DAILY 04/03/24 Atorvastatin Calcium (ATORVASTATIN CALCIUM) 80 Mg Tab, 1 TAB PO DAILY 04/03/24 Aspirin (Aspirin Low Dose) 81 Mg Tab, 1 TAB PO DAILY 04/03/24 Losartan Potassium (Losartan Potassium) 50 Mg Tab, 50 MG PO DAILY for 30 Days, MG 01/29/22 Information Source: Patient, Emergency Med Personnel Mode of Arrival: EMS Past Medical History PAST MEDICAL HISTORY: Cancer, CHF, CVA, Depression, HTN Past Medical History (Other): Crohn's disease Surgical History: Cholecystectomy, Hysterectomy, Tubal Ligation [employer] History: 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[employer] History Family History Family History: Unknown Social History Smoker: Non-Smoker Alcohol: Denies ETOH Use Drugs: Denies Drug Use Lives In: Home All Other Systems: Reviewed and Negative (Comprehensive systems review obtained and negative except for what is stated in the HPI.) Physical Exam General Appearance: No Apparent Distress, Obese HEENT: Other (Pupils symmetric, dry mucous membranes) Neck: Full Range of Motion, Normal Inspection, Supple Respiratory: Decreased Breath Sounds, No Accessory Muscle Use, No Respiratory Distress 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: No Edema, No JVD, Regular Rate/Rhythm Breast Exam: Deferred Gastrointestinal: RUQ, Soft, Tenderness Genitalia: Deferred Pelvic: Deferred Rectal: Deferred Extremities: Normal inspection, Normal range of motion, Non-tender, No pedal edema Neurologic: Alert, Other (Moves all extremities, [id number] dysarthria (chronic per patient)) Cerebellar Function: NOT DONE Reflexes: NOT DONE Skin: Dry, Pallor, Warm Lymphatic: NOT DONE EKG EKG : Comments Sinus rhythm, rate 85, normal NC and QRS intervals, QTC 463, normal axis, normal QRS, nonspecific T changes Was a procedure done? Was a procedure done?: No GI differential Dx Differential Diagnosis: Bowel Obstruction, Cholangitis, Cholecystitis, Constipation, Diverticular disease, Gastritis/PUD, Gastroenteritis, Hepatitis, Inflammatory BD, Ischemic Bowel, Pancreatitis, UTI, Dehydration, Diabetes/ DKA, Electrolyte Imbalance, Food Poisoning, Bacterial, Parasitic, Viral, Hypovolemia, Impaction, Renal Failure, Anemia, Stress Ulcer, Kidney Stone X-Ray, Labs, Meds, VS Vital Signs Date Time Temp Pulse Resp B/P (MAP) Pulse Ox O2 Delivery O2 Flow Rate FiO2 09/05/24 01:25 98.7 75 24 89/54 (66) 93 09/05/24 01:18 85 Lab Test 09/05/24 03:20 09/05/24 01:45 Range/Units Troponin I High Sensitivity Pending 471 *H </=34 ng/L White Blood Count 18.4 H 4.4-10.8 10^3/uL Red Blood Count 5.08 4.0-5.20 10^6/uL Hemoglobin 16.1 12.2-16.2 g/dL Hematocrit 48.2 H 36.0-46.0 % Mean Corpuscular Volume 94.8 80.0-100.0 fL Mean Corpuscular Hemoglobin 31.6 28.0-32.0 pg Mean Corpuscular Hemoglobin Concent 33.4 32.0-36.0 g/dL Red Cell Distribution Width 13.6 11.8-14.3 % Platelet Count 238 140-450 10^3/uL Mean Platelet Volume 8.1 6.9-10.8 fL Neutrophils (%) (Auto) 84.0 H 37.0-80.0 % Lymphocytes (%) (Auto) 8.2 L 10.0-50.0 % Monocytes (%) (Auto) 7.6 0.0-12.0 % Eosinophils (%) (Auto) 0.0 0.0-7.0 % Basophils (%) (Auto) 0.2 0.0-2.0 % Neutrophils # (Auto) 15.5 H 1.6-8.6 10 ^3/uL Lymphocytes # (Auto) 1.5 0.4-5.4 10 ^3/uL Monocytes # (Auto) 1.4 H 0-1.3 10 ^3/uL Eosinophils # (Auto) 0 0-0.8 10 ^3/uL Basophils # (Auto) 0 0-0.2 10 ^3/uL Nucleated Red Blood Cells 0.0 % Sodium Level Pending Potassium Level Pending Chloride Level Pending Carbon Dioxide Level Pending Anion Gap Pending Blood Urea Nitrogen Pending Creatinine Pending Glomerular Filtration Rate Calc Pending BUN/Creatinine Ratio Pending Serum Glucose Pending Lactic Acid Level 2.5 *H 0.4-2.0 mmol/L Calcium Level Pending Total Bilirubin Pending Aspartate Amino Transferase (AST) Pending Alanine Aminotransferase (ALT) Pending Alkaline Phosphatase Pending B-Type Natriuretic Peptide 158.03 0-100 pg/mL Total Protein Pending Albumin Pending Lipase Pending Current Medications Medications (Trade) Dose Ordered Sig/Shelly Route Start Time Stop Time Status Last Admin Ondansetron HCl (Zofran) 4 mg ONCE ONCE IV 09/05/24 01:30 09/05/24 01:33 DC 09/05/24 04:02 Pantoprazole Sodium (Protonix) 40 mg ONCE ONCE IV 09/05/24 01:30 09/05/24 01:33 DC 09/05/24 04:02 Sodium Chloride 500 ml @ 500 mls/hr Q1H ONCE IV 09/05/24 02:00 09/05/24 02:59 DC 09/05/24 04:03 Aspirin 162 mg ONCE ONCE PO 09/05/24 03:15 09/05/24 03:16 DC 09/05/24 04:02 PROCEDURE(s): CXRP - CHEST PORTABLE REASON: hypoxia ORDER NUMBER(s): [id number], ACCESSION NUMBER(s): [id number] Examination: CXRP Clinical Indication: hypoxia Comparison: None. Technique: Frontal radiograph of the chest was obtained. Findings: Patient is in rotation. Lungs are clear and well expanded, with no pulmonary infiltrate or pleural effusion. There is no pneumothorax. Mild cardiomegaly. Cardiac loop recorder is noted on the left side. No acute osseous abnormality is seen. Impression: Mild cardiomegaly. Electronically Signed 09/05/2024 03:29 Saurav Ambrose PROCEDURE(s): ABPL - CT AB PEL WO CON-NO ORAL OR IV REASON: vomiting, right sided abd tenderness ORDER NUMBER(s): [id number], ACCESSION NUMBER(s): [id number] Examination: ABPL CLINICAL INDICATION: vomiting, right sided abd tenderness COMPARISON: None. CONTRAST USED: None. TECHNIQUE: A plain CT study of the abdomen and pelvis is performed. The examination was performed with 5 mm thin slices. Multiplanar reconstructions were obtained. CT scan done according to ALARA (As Low As Reasonably Achievable). FINDINGS: CT ABDOMEN: Lung base: The evaluation of lung bases demonstrates no focal infiltrates or pleural effusion. Small sliding hiatus hernia is seen. Unenhanced Liver: The liver is normal in size. There is no intrahepatic biliary radicle dilatation. Gallbladder: The gallbladder is not visualized (post operative status). The common bile duct is not dilated. Unenhanced Pancreas: The pancreas is normal in size and shape. No focal lesion is seen within. The peripancreatic fat-planes are normal. Spleen: The spleen is normal in size and does not show any focal abnormality. Retroperitoneum: Both adrenal glands are normal in size and morphology in this unenhanced CT scan. There is no significant retroperitoneal lymphadenopathy. The kidneys are normal in size with no hydronephrosis or renal calculi. Vessels: Aorta, IVC and the mesenteric vessels cannot be commented in this unenhanced CT scan. Stomach and bowel: The bowel loops are unremarkable. There is no ascites. Skeletal system: Degenerative changes are seen involving the spine in the form of marginal osteophytes. Chronic wedge compression deformity with mild reduction in the height of L3 vertebra is seen. CT PELVIS: Appendix: The appendix is not visualized. Colon: Scattered colonic diverticulosis is seen without diverticulitis. Bladder: The urinary bladder is unremarkable. Uterus and ovaries: Post hysterectomy status. No adnexal pathology. No abnormal fluid collection is seen. No pelvic lymphadenopathy is identified. IMPRESSION: 1. Scattered colonic diverticulosis is seen without diverticulitis. 2. No abdominal mass or adenopathy. 3. No ascites. 4. No free air or inflammatory changes. 5. Additional chronic and/or ancillary findings as detailed above. 6. Suggest clinical correlation and follow-up as clinically deemed necessary. Electronically Signed 09/05/2024 03:40 Saurav Ambrose X-Ray, Labs, Meds, VS Comment 63-year-old female with a history of Crohn's disease, hypertension, CVA, CHF and dyslipidemia brought in by EMS complaining of nausea and vomiting Vitals remarkable for respiratory rate 24, BP 89/54, oxygen saturation 93% on 2 L nasal cannula Exam remarkable for right-sided upper quadrant and mid abdominal tenderness to deep palpation. No tenderness to percussion. No rebound or guarding. Previous hospital records reviewed including recent visit 07/26/2024 with chest pain Rhythm strip independently interpreted by me: Sinus rhythm, rate 85, no ectopy. EKG sinus rhythm with nonspecific T changes Chest x-ray Impression: Mild cardiomegaly. CT abdomen and pelvis IMPRESSION: 1. Scattered colonic diverticulosis is seen without diverticulitis. 2. No abdominal mass or adenopathy. 3. No ascites. 4. No free air or inflammatory changes. 5. Additional chronic and/or ancillary findings as detailed above. 6. Suggest clinical correlation and follow-up as clinically deemed necessary. CBC remarkable for WBC 18.4, differential shows a left shift comprehensive metabolic panel, lipase pending BNP 158.03, troponin 471, lactate 2.5 UA pending Patient treated with the following in the ED: 500 cc 0.9 normal saline IV bolus, Zofran 4 mg IV, Protonix 40 mg IV, morphine 4 mg IV, Levaquin 500 mg IV, Flagyl 500 mg IV, aspirin 162 mg p.o. On re-evaluation, patient states nausea has improved. Abdominal exam is benign. She denied any chest pain. Plan is to admit the patient for serial troponins, Cardiology evaluation, IV hydration and lactate trend. Time of 1ST Reevaluation: 02:02 Reevaluation 1ST: Unchanged Patient Education/Counseling: Diagnosis, Treatment Family Education/Counseling: No Family Present Sepsis Sepsis Reasesment Focused Exam Sepsis focused exam: focus exam completed (30 cc/kilogram bolus was not administered due to history of CHF and current hypoxia. Aggressive fluid hydration could cause harm.), time: (308) Departure 1 Departure Time of Disposition: 03:10 Impression: Primary Impression: Non-STEMI (non-ST elevated myocardial infarction) Additional Impressions: Vomiting Qualified Codes: R11.2 - Nausea with vomiting, unspecified Sepsis Qualified Codes: A41.9 - Sepsis, unspecified organism Disposition: 09 ADMITTED INPATIENT Admit to: [facility] Condition: Guarded Critical Care Note Critical Care Time?: Yes (45 min-critical care time only) Critical care comment: Critical care time including multiple bedside re-evaluations, review of lab and imaging studies, and discussion of the case with the admitting provider. Patient is high risk for hemodynamic, respiratory and/or metabolic decompensation. Stability Stability form required: No Heart Score Heart Score: Heart Score Response (Comments) Value History N/A 0 EKG N/A 0 Age N/A 0 Risk Factors N/A 0 Troponin N/A 0 Total 0 BALAJI LINCOLN MD Sep 05, 2024 02:03
[2024-09-05 02:46] LABS: Basophils # (auto) 0 10 ^3/uL (0-0.2); Basophils % (auto) 0.2 % (0.0-2.0); Eosinophils # (auto) 0 10 ^3/uL (0-0.8); Hematocrit 48.2 % (36.0-46.0); Hemoglobin 16.1 g/dL (12.2-16.2); Lymphocytes # (auto) 1.5 10 ^3/uL (0.4-5.4); Lymphocytes % (auto) 8.2 % (10.0-50.0); Mean Corpuscular Hemoglobin 31.6 pg (28.0-32.0); Mean Corpuscular Hgb Conc. 33.4 g/dL (32.0-36.0); Mean Corpuscular Volume 94.8 fL (80.0-100.0); Monocytes # (auto) 1.4 10 ^3/uL (0-1.3); Monocytes % (auto) 7.6 % (0.0-12.0); Neutrophils # (auto) 15.5 10 ^3/uL (1.6-8.6); Platelet Count (auto) 238 10^3/uL (140-450); Red Blood Cells 5.08 10^6/uL (4.0-5.20); Red Cell Distribution Width 13.6 % (11.8-14.3); White Blood Cell 18.4 10^3/uL (4.4-10.8)
[2024-09-05 02:53] LABS: Lactic Acid w/Reflex 2.5 mmol/L (0.4-2.0)
--- NOTE | 2024-09-05 03:30 | DVH ---
Examination: CXRP Clinical Indication: hypoxia Comparison: None. Technique: Frontal radiograph of the chest was obtained. Findings: Patient is in rotation. Lungs are clear and well expanded, with no pulmonary infiltrate or pleural effusion. There is no pneumothorax. Mild cardiomegaly. Cardiac loop recorder is noted on the left side. No acute osseous abnormality is seen. Impression: Mild cardiomegaly. Electronically Signed 09/05/2024 03:29 Saurav Ambrose
--- NOTE | 2024-09-05 03:40 | DVH ---
Examination: ABPL CLINICAL INDICATION: vomiting, right sided abd tenderness COMPARISON: None. CONTRAST USED: None. TECHNIQUE: A plain CT study of the abdomen and pelvis is performed. The examination was performed wi 5 mm thin slices. Multiplanar reconstructions were obtained. CT scan done according to ALARA (As L ow As Reasonably Achievable). FINDINGS: CT ABDOMEN: Lung base: The evaluation of lung bases demonstrates no focal infiltrates or pleural effusion. Small sliding hiatus hernia is seen. Unenhanced Liver: The liver is normal in size. There is no intrahepatic biliary radicle dilatation. Gallbladder: The gallbladder is not visualized (post operative status). The common bile duct is no t dilated. Unenhanced Pancreas: The pancreas is normal in size and shape. No focal lesion is seen within. The peripancreatic fat-planes are normal. Spleen: The spleen is normal in size and does not show any focal abnormality. Retroperitoneum: Both adrenal glands are normal in size and morphology in this unenhanced CT scan. Th ere is no significant retroperitoneal lymphadenopathy. The kidneys are normal in size with no hydrone phrosis or renal calculi. Vessels: Aorta, IVC and the mesenteric vessels cannot be commented in this unenhanced CT scan. Stomach and bowel: The bowel loops are unremarkable. There is no ascites. Skeletal system: Degenerative changes are seen involving the spine in the form of marginal osteophyt es. Chronic wedge compression deformity with mild reduction in the height of L3 vertebra is seen. CT PELVIS: Appendix: The appendix is not visualized. Colon: Scattered colonic diverticulosis is seen without diverticulitis. Bladder: The urinary bladder is unremarkable. Uterus and ovaries: Post hysterectomy status. No adnexal pathology. No abnormal fluid collection is seen. No pelvic lymphadenopathy is identified. IMPRESSION: 1. Scattered colonic diverticulosis is seen without diverticulitis. 2. No abdominal mass or adenopathy. 3. No ascites. 4. No free air or inflammatory changes. 5. Additional chronic and/or ancillary findings as detailed above. 6. Suggest clinical correlation and follow-up as clinically deemed necessary. Electronically Signed 09/05/2024 03:40 Saurav Ambrose
[2024-09-05 03:47] VITALS: PULSE 96; RESP 18; O2SAT 77
[2024-09-05] MEDS: PANTOPRAZOLE 40 MG/10 ML VIAL INJ IV ONE (04:02)
[2024-09-05] MEDS: ASPirin 81 mg TAB PO ONE (04:02)
[2024-09-05] MEDS: ONDANSETRON HCL 4 MG/2 ML VIAL IV ONE (04:02)
[2024-09-05] MEDS: SODIUM CHLORIDE 0.9% 500 ML IV ONE (04:03)
--- NOTE | 2024-09-05 06:58 | ECG ---
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
[2024-09-05 07:35] LABS: Alanine Aminotransferase 34 U/L (7-40); Albumin 3.7 g/dL (3.2-4.8); Alkaline Phosphatase 97 U/L (46-116); Anion Gap 6 (5-15); Aspartate Aminotransferase 98 U/L (13-40); BUN/Creatinine Ratio 19.3 (10.0-20.0); Blood Urea Nitrogen 28 mg/dL (9-23); Calcium 9.5 mg/dL (8.7-10.4); Carbon Dioxide 25 mmol/L (20-31); Chloride 101 mmol/L (98-107); Glucose 108 mg/dL (74-106); Potassium 4.2 mmol/L (3.5-5.1); Sodium 132 mmol/L (136-145)
[2024-09-05 07:36] LABS: Bilirubin, Total 1.7 mg/dL (0.2-1.0)
[2024-09-05] MEDS: MORPHINE SULFATE 4 MG/ML SYR/VIAL IV ONE (08:04)
[2024-09-05] MEDS: levoFLOXacin 500MG 100 ML IV ONE (08:05)
[2024-09-05 08:06] LABS: Urine Bacteria FEW /hpf (None Seen); Urine Blood Negative /uL (Negative); Urine Clarity Ex.Turbid (Clear); Urine Color Yellow (Yellow); Urine Hyaline Cast FEW /lpf (0 - 2); Urine Mucus FEW (None Seen); Urine Protein, UAD 1+ (Negative); Urine Specific Gravity 1.026 (1.001-1.035); Urine Urobilinogen Normal (Negative); Urine WBC 51 /hpf (0 - 5)
--- NOTE | 2024-09-05 08:29 | DVHHP2 ---
History of Present Illness Reason for Visit: Nausea, vomiting, constipation, decreased urine output, and weakness History of Present Illness Amelie Bautista is a 63YO F with pmHx of CHF, CVA, Crohn's disease, HLD, and HTN who presents to the ED for N/V x 2 days, decrease in urine output and constipation. Upon examination patient reported she vomited x 3 days with brownish black in color. Patient reports that she called EMS d/t progressive nausea and vomiting, unable to hold food down, and weakness. Patient reports that her daughter Korin lives with her and is her realtime court reporter caregiver. Patient reported that she had a cardiac loop recorder placed in by her roll edge stitcher hand Dr. Lund in 2019 for a possible need for a PM. Patient and daughter states the loop recorder was supposed to be removed 3 months after placement but was unable to get appointments with the roll edge stitcher hand. Patient also reports she is compliant with her medications, smokes 12 cigarettes per day, denies drinking and drugs. She reported that she had a CVA in 2019 with no motor deficits and does not use a dme. She also reports that she exercises daily, walking up and down her driveway. Patient reported that her urine output has decreased but denies burning or discomfort. Patient denies abdominal pain, chest pain, dizziness, headache, and lightheadness. Spoke to daughter (Korin) reported that on 09/04/24 around 10am she gave her mom her morning medications but vomited them out. Emesis was brown in color and her mom was c/o weakness. Daughter reported the vomiting was progressively getting worse and patient was unable to hold food down which is when she called EMS. 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 GI: Other (Crohn's disease) Psych: Depression Past Medical History Cervical CA Past Surgical History: Cholecystectomy, Hysterectomy, Tubal Ligation Family History: Cancer (Lung CA - sister and Breast CA - mother), DM Smoke: 1 pack per day (12 cigarettes per day) ALCOHOL: none Drugs: None Lives: with Family Domestic Violence: Neg Review of Systems Constitutional: Yes: Weakness; No: Fever, Chills, Sweats, Malaise, Other Eyes: No: Pain, Vision change, Conjunctivae inflammation, Eyelid inflammation, Other, Redness ENT: No: Ear pain, Ear discharge, Nose pain, Nose discharge, Nose congestion, Mouth pain, Mouth swelling, Throat pain, Throat swelling, Other Respiratory: No: Cough, Dry, Shortness of breath, SOB with excertion, Wheezing, Hemoptysis, Pleuritic Pain, Sputum, Wheezing, Other 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: No: Chest Pain, Palpitations, Orthopnea, Paroxysmal Noc. Dyspnea, Edema, Lt Headedness, Other Gastrointestinal: Nausea, Vomiting, Constipation; No: Abdominal Pain, Diarrhea, Melena, Hematochezia, Other Genitourinary: No Dysuria, No Frequency, No Incontinence, No Hematuria, No Retention; Other (Oliguria) Musculoskeletal: No: other, neck pain, shoulder pain, arm pain, back pain, hand pain, leg pain, foot pain Skin: Other (scratches d/t dry skin); No: Rash, Lesions, Jaundice, Bruising Neurological: Weakness; No: Numbness, Incoordination, Change in speech, Confusion, Seizures, Other Allergies: Coded Allergies: Codeine (Verified Allergy, Unknown, 03/10/22) Ketorolac (Verified Allergy, Unknown, 03/10/22) Penicillins (Verified Allergy, Unknown, 03/10/22) Tromethamine (Verified Allergy, Unknown, 03/10/22) Exam Vital Signs Vital Signs Date Time Temp Pulse Resp B/P (MAP) Pulse Ox O2 Delivery O2 Flow Rate FiO2 09/05/24 08:04 93 16 110/50 09/05/24 05:00 94 09/05/24 03:47 Room Air* 0 21 09/05/24 03:47 98.4 98.4 General Appearance: Alert, Oriented X3, Cooperative, No acute distress HEENT: Atraumatic, PERRLA, EOMI, Mucous membr. moist/pink Respiratory: Clear to auscultation, Normal air movement 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: Regular rate, Normal S1, Normal S2, No murmurs Abdominal: Soft Extremities: No clubbing, No cyanosis, No edema, Normal pulses Neuro: Normal tone, Sensation intact Psych/Mental Status: Mental status NL, Mood NL Labs/Xrays Labs Test 09/05/24 06:55 09/05/24 06:23 09/05/24 01:45 Range/Units Sodium Level 132 L 136-145 mmol/L Potassium Level 4.2 3.5-5.1 mmol/L Chloride Level 101 98-107 mmol/L Carbon Dioxide Level 25 20-31 mmol/L Anion Gap 6 5-15 Blood Urea Nitrogen 28 H 9-23 mg/dL Creatinine 1.45 H 0.550-1.02 mg/dL Glomerular Filtration Rate Calc 41 >90 mL/min BUN/Creatinine Ratio 19.3 10.0-20.0 Serum Glucose 108 H 74-106 mg/dL Lactic Acid Level 1.4 0.4-2.0 mmol/L Calcium Level 9.5 8.7-10.4 mg/dL Total Bilirubin 1.7 H 0.2-1.0 mg/dL Aspartate Amino Transferase (AST) 98 H 13-40 U/L Alanine Aminotransferase (ALT) 34 7-40 U/L Alkaline Phosphatase 97 46-116 U/L Troponin I High Sensitivity 424 *H </=34 ng/L Total Protein 6.0 5.7-8.2 g/dL Albumin 3.7 3.2-4.8 g/dL Urine Color Yellow Yellow Urine Clarity Ex.turbid Clear Urine pH 6.0 5.0-9.0 Urine Specific [place] 1.026 1.001-1.035 Urine Protein 1+ H Negative Urine Ketones Trace Negative Urine Blood Negative Negative /uL Urine Nitrite Negative Negative Urine Bilirubin Negative Negative Urine Urobilinogen Normal Negative mg/dL Urine Leukocyte Esterase 2+ Negative /uL Urine RBC 6 0 - 4 /hpf Urine WBC 51 0 - 5 /hpf Urine Squamous Epithelial Cells Mod <5 /hpf Urine Bacteria Few H None Seen /hpf Urine Hyaline Casts Few 0 - 2 /lpf Urine Mucus Few None Seen Urine Glucose Normal Normal mg/dL White Blood Count 18.4 H 4.4-10.8 10^3/uL Red Blood Count 5.08 4.0-5.20 10^6/uL Hemoglobin 16.1 12.2-16.2 g/dL Hematocrit 48.2 H 36.0-46.0 % Mean Corpuscular Volume 94.8 80.0-100.0 fL Mean Corpuscular Hemoglobin 31.6 28.0-32.0 pg Mean Corpuscular Hemoglobin Concent 33.4 32.0-36.0 g/dL Red Cell Distribution Width 13.6 11.8-14.3 % Platelet Count 238 140-450 10^3/uL Mean Platelet Volume 8.1 6.9-10.8 fL Neutrophils (%) (Auto) 84.0 H 37.0-80.0 % Lymphocytes (%) (Auto) 8.2 L 10.0-50.0 % Monocytes (%) (Auto) 7.6 0.0-12.0 % Eosinophils (%) (Auto) 0.0 0.0-7.0 % Basophils (%) (Auto) 0.2 0.0-2.0 % Neutrophils # (Auto) 15.5 H 1.6-8.6 10 ^3/uL Lymphocytes # (Auto) 1.5 0.4-5.4 10 ^3/uL Monocytes # (Auto) 1.4 H 0-1.3 10 ^3/uL Eosinophils # (Auto) 0 0-0.8 10 ^3/uL Basophils # (Auto) 0 0-0.2 10 ^3/uL Nucleated Red Blood Cells 0.0 % B-Type Natriuretic Peptide 158.03 0-100 pg/mL Examination: CXRP Findings: Patient is in rotation. Lungs are clear and well expanded, with no pulmonary infiltrate or pleural effusion. There is no pneumothorax. Mild cardiomegaly. Cardiac loop recorder is noted on the left side. No acute osseous abnormality is seen. Impression: Mild cardiomegaly. Examination: ABPL FINDINGS: CT ABDOMEN: Lung base: The evaluation of lung bases demonstrates no focal infiltrates or pleural effusion. Small sliding hiatus hernia is seen. Unenhanced Liver: The liver is normal in size. There is no intrahepatic biliary radicle dilatation. Gallbladder: The gallbladder is not visualized (post operative status). The common bile duct is not dilated. Unenhanced Pancreas: The pancreas is normal in size and shape. No focal lesion is seen within. The peripancreatic fat-planes are normal. Spleen: The spleen is normal in size and does not show any focal abnormality. Retroperitoneum: Both adrenal glands are normal in size and morphology in this unenhanced CT scan. There is no significant retroperitoneal lymphadenopathy. The kidneys are normal in size with no hydronephrosis or renal calculi. Vessels: Aorta, IVC and the mesenteric vessels cannot be commented in this unenhanced CT scan. Stomach and bowel: The bowel loops are unremarkable. There is no ascites. Skeletal system: Degenerative changes are seen involving the spine in the form of marginal osteophytes. Chronic wedge compression deformity with mild reduction in the height of L3 vertebra is seen. CT PELVIS: Appendix: The appendix is not visualized. Colon: Scattered colonic diverticulosis is seen without diverticulitis. Bladder: The urinary bladder is unremarkable. Uterus and ovaries: Post hysterectomy status. No adnexal pathology. No abnormal fluid collection is seen. No pelvic lymphadenopathy is identified. IMPRESSION: 1. Scattered colonic diverticulosis is seen without diverticulitis. 2. No abdominal mass or adenopathy. 3. No ascites. 4. No free air or inflammatory changes. 5. Additional chronic and/or ancillary findings as detailed above. 6. Suggest clinical correlation and follow-up as clinically deemed necessary. Assessment/Plan Assessment/Plan Assessment: NSTEMI Type 2 UTI LYNN Cardiomegaly Diverticulosis Hypoxia Hx of CVA with delayed speech Crohn's disease HTN HLD Depression Cervical CA Plan: Admit to tele GI consult Cardiology consult IVf IV Abx Trend Troponin's - downtrending Trend lactic acid - downtrending Monitor labs Blood cx Stool cx CT A/P noted CXR noted Diet as tolerated Antiemetics GI ppx Reconciled home medications Discussed plan of care with patient, patient's daughter and nurse Plan discussed with: Patient, Daughter (Korin [phone]) Problem List: (1) Non-STEMI (non-ST elevated myocardial infarction) (2) Cardiomegaly (3) LYNN (acute kidney injury) (4) UTI (urinary tract infection) (5) Diverticulosis Date of Service: Sep 05, 2024 Billing Provider: TETO ROD Common Visit Codes: [id number] INP/OBS CARE (MOD) TETO ROD Sep 05, 2024 08:29
[2024-09-05 08:37] LABS: Lipase 23 U/L (12-53)
[2024-09-05] MEDS: metroNIDAZOLE 500MG/100ML 100 ML IV ONE (09:11)
[2024-09-05] MEDS ORDERED: NITROGLYCERIN 0.4 MG SL TAB SL PRN (09:30)
[2024-09-05] MEDS ORDERED: ACETAMINOPHEN 325 MG TAB PO PRN (09:30)
[2024-09-05] MEDS ORDERED: ACETAMINOPHEN 500 MG TAB PO PRN (09:30)
[2024-09-05] MEDS ORDERED: MORPHINE SULFATE INJ 2 MG/ml SYRG IV PRN (09:30)
[2024-09-05] MEDS ORDERED: VITAMINS A & D (TOPICAL) OINT 5GM TOP PRN (09:30)
[2024-09-05] MEDS: MAALOX PLUS or MAALOX 30 ML PO ONE (09:30)
[2024-09-05 09:33] VITALS: PULSE 93; RESP 15; O2SAT 95
[2024-09-05] MEDS: levoFLOXacin 500MG 100 ML IV SCH (10:00)
[2024-09-05] MEDS: PANTOPRAZOLE 40 MG/10 ML VIAL INJ IV SCH (10:00)
[2024-09-05] MEDS ORDERED: NTG 0.1MG/HR TOPICAL PATCH TD SCH (10:00)
[2024-09-05 10:07] LABS: Amylase < 20 U/L (30-118)
[2024-09-05] MEDS: DOCUSATE SOD 100 MG CAP PO SCH (10:44)
[2024-09-05] MEDS: ASPirin 81 mg TAB PO SCH (10:45)
[2024-09-05] MEDS: SODIUM CHLORIDE 0.9% 1,000 ML IV SCH (11:02)
[2024-09-05 11:38] LABS: Erythrocyte Sedimentation Rate 8 mm/hr (0-20)
[2024-09-05 12:48] LABS: Lipase 21 U/L (12-53)
[2024-09-05] MEDS: metroNIDAZOLE 500MG/100ML 100 ML IV SCH (14:35)
[2024-09-05] MEDS: ONDANSETRON HCL 4 MG/2 ML VIAL IV PRN (16:43)
[2024-09-05 19:21] VITALS: PULSE 78; RESP 20; O2SAT 98
--- NOTE | 2024-09-05 19:23 | DVHINCON2 ---
Date of service: Sep 05, 2024 Referring Physician Jose Reason for Consultation Elevated troponin History of Present Illness This is a 63 year old female with a PMH of Crohn's disease, hypertension, CVA, CHF and dyslipidemia brought in by EMS with complaints of nausea and vomiting for the last 2 days. Patient states her vomit was black/dark brown in color. Also endorses decrease in urine output and constipation. Patient reports that she called EMS due to progressive nausea and vomiting, unable to hold food down, and weakness. Paramedics note that initially patient's blood pressure was normal while lying down, but when patient stood up to ambulate she became hypotensive and her oxygen saturation dropped to the 80s on room air. She was placed on 2 L nasal cannula and oxygen saturation improved to 92%. EKG is NSR at 85. Chest x- ray shows mild cardiomegaly. CT abd/pe shows scattered colonic diverticulosis is seen without diverticulitis. WBC 18.4. BUN 28, Lute Packer Or Applier 1.42, AST 98, Troponin 471 with repeat of 424, CRP 3.33. LA 2.5. Patient was admitted to the hospital. I am asked to consult on this patient. Family History: Diabetes mellitus G8 SISTER G8 SISTER FH: brain cancer G8 MOTHER FH: cancer G8 MOTHER G8 FATHER Allergies: Coded Allergies: Codeine (Verified Allergy, Unknown, 03/10/22) Ketorolac (Verified Allergy, Unknown, 03/10/22) Penicillins (Verified Allergy, Unknown, 03/10/22) Tromethamine (Verified Allergy, Unknown, 03/10/22) Home Meds Active Scripts Duloxetine HCl (Duloxetine HCl) 30 Mg Cap, 30 MG PO BID for 30 Days, #60 CAP Prov:FARIDEH SCHAFER RESIDENT 08/02/24 Reported Medications Ergocalciferol (Vitamin D) 50,000 Unit Cap, 1 CAP PO QWEEKLY for 28 Days, #4 07/28/24 Cyanocobalamin (B12) 1,000 Mcg Tab, 1 TAB PO DAILY for 14 Days, #14 07/28/24 Duloxetine Hcl (Cymbalta) 20 Mg Cap, 30 MG PO DAILY 04/04/24 Clopidogrel Bisulfate (CLOPIDOGREL) 75 Mg Tab, 1 TAB PO DAILY 04/03/24 Atorvastatin Calcium (ATORVASTATIN CALCIUM) 80 Mg Tab, 1 TAB PO DAILY 04/03/24 Aspirin (Aspirin Low Dose) 81 Mg Tab, 1 TAB PO DAILY 04/03/24 Losartan Potassium (Losartan Potassium) 50 Mg Tab, 50 MG PO DAILY for 30 Days, MG 01/29/22 Current Medications Current Medications Medications (Trade) Dose Ordered Sig/Shelly Route PRN Reason Start Time Stop Time Status Last Admin Sodium Chloride 1,000 ml @ 75 mls/hr [id number] IV 09/05/24 09:30 09/05/24 11:02 Aspirin 81 mg DAILY PO 09/05/24 10:00 09/05/24 10:45 Acetaminophen (Tylenol Tablet) 650 mg Q6HP PRN PO MILD PAIN (1-3 PAIN SCALE) 09/05/24 09:30 Hold Docusate Sodium (Colace Capsule) 100 mg DAILY PO 09/05/24 10:00 09/05/24 10:44 Nitroglycerin (Nitrodur 0.1MG/ Hr) 1 patch DAILY TD 09/05/24 10:00 09/05/24 10:00 DC Acetaminophen (Tylenol Tablet) 500 mg Q6HP PRN PO MILD PAIN (1-3 PAIN SCALE) 09/05/24 09:30 Hold Nitroglycerin (Ntrostat Sublingual) 0.4 mg Q5MINP PRN SL FOR CHEST PAIN 09/05/24 09:30 Morphine Sulfate 2 mg Q30M PRN IV FOR CHEST PAIN 09/05/24 09:30 Levofloxacin/ Dextrose 100 ml @ 100 mls/hr DAILY IV 09/05/24 10:00 Metronidazole 100 ml @ 100 mls/hr Q8HR IV 09/05/24 14:00 09/05/24 14:35 Vitamin A/Vitamin D 5 gm DAILYP PRN TOP DRY SKIN 09/05/24 09:30 Pantoprazole Sodium (Protonix) 40 mg DAILY IV 09/05/24 10:00 Duloxetine HCl (Cymbalta Capsule) 30 mg BID PO 09/05/24 22:00 Morphine Sulfate 1 mg Q4HP PRN IV SEVERE PAIN (7-10 PAIN SCALE) 09/05/24 15:00 Ondansetron HCl (Zofran) 4 mg Q6HPRN PRN IV NAUSEA / VOMITING 09/05/24 15:00 09/05/24 16:43 Review of Systems Constitutional: Yes: Weakness; No: Fever, Chills, Sweats, Malaise, Other Eyes: No: Pain, Vision change, Conjunctivae inflammation, Eyelid inflammation, Other, Redness ENT: No: Ear pain, Ear discharge, Nose pain, Nose discharge, Nose congestion, Mouth pain, Mouth swelling, Throat pain, Throat swelling, Other Respiratory: No: Cough, Dry, Shortness of breath, SOB with excertion, Wheezing, Hemoptysis, Pleuritic Pain, Sputum, Wheezing, Other 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: No: Chest Pain, Palpitations, Orthopnea, Paroxysmal Noc. Dyspnea, Edema, Lt Headedness, Other Gastrointestinal: Nausea, Vomiting, Constipation; No: Abdominal Pain, Diarrhea, Melena, Hematochezia, Other Genitourinary: No Dysuria, No Frequency, No Incontinence, No Hematuria, No Retention; Other (Oliguria) Musculoskeletal: No: other, neck pain, shoulder pain, arm pain, back pain, hand pain, leg pain, foot pain Skin: Other (scratches d/t dry skin); No: Rash, Lesions, Jaundice, Bruising Neurological: Weakness; No: Numbness, Incoordination, Change in speech, Confusion, Seizures, Other Vital Signs Vital Signs Date Time Temp Pulse Resp B/P (MAP) Pulse Ox O2 Delivery O2 Flow Rate FiO2 09/05/24 17:24 73 10 92/44 (60) 97 09/05/24 09:58 98.6 98.6 09/05/24 09:57 Nasal Cannula* 2 28 Physical Exam GENERAL: Awake, alert, oriented. Obese. LUNGS: Clear. CARDIOVASCULAR: Heart sounds are good. ABDOMEN: Soft. Labs/Diagnostic Data Labs Test 09/05/24 06:55 09/05/24 06:23 09/05/24 01:45 Range/Units Erythrocyte Sedimentation Rate 8 0-20 mm/hr Sodium Level 132 L 136-145 mmol/L Potassium Level 4.2 3.5-5.1 mmol/L Chloride Level 101 98-107 mmol/L Carbon Dioxide Level 25 20-31 mmol/L Anion Gap 6 5-15 Blood Urea Nitrogen 28 H 9-23 mg/dL Creatinine 1.45 H 0.550-1.02 mg/dL Glomerular Filtration Rate Calc 41 >90 mL/min BUN/Creatinine Ratio 19.3 10.0-20.0 Serum Glucose 108 H 74-106 mg/dL Lactic Acid Level 1.4 0.4-2.0 mmol/L Calcium Level 9.5 8.7-10.4 mg/dL Total Bilirubin 1.7 H 0.2-1.0 mg/dL Aspartate Amino Transferase (AST) 98 H 13-40 U/L Alanine Aminotransferase (ALT) 34 7-40 U/L Alkaline Phosphatase 97 46-116 U/L Troponin I High Sensitivity 424 *H </=34 ng/L C-Reactive Protein High Sensitivity 3.33 H <1.0 mg/dL Total Protein 6.0 5.7-8.2 g/dL Albumin 3.7 3.2-4.8 g/dL Amylase Level < 20 L 30-118 U/L Lipase 21 12-53 U/L Urine Color Yellow Yellow Urine Clarity Ex.turbid Clear Urine pH 6.0 5.0-9.0 Urine Specific [place] 1.026 1.001-1.035 Urine Protein 1+ H Negative Urine Ketones Trace Negative Urine Blood Negative Negative /uL Urine Nitrite Negative Negative Urine Bilirubin Negative Negative Urine Urobilinogen Normal Negative mg/dL Urine Leukocyte Esterase 2+ Negative /uL Urine RBC 6 0 - 4 /hpf Urine WBC 51 0 - 5 /hpf Urine Squamous Epithelial Cells Mod <5 /hpf Urine Bacteria Few H None Seen /hpf Urine Hyaline Casts Few 0 - 2 /lpf Urine Mucus Few None Seen Urine Glucose Normal Normal mg/dL White Blood Count 18.4 H 4.4-10.8 10^3/uL Red Blood Count 5.08 4.0-5.20 10^6/uL Hemoglobin 16.1 12.2-16.2 g/dL Hematocrit 48.2 H 36.0-46.0 % Mean Corpuscular Volume 94.8 80.0-100.0 fL Mean Corpuscular Hemoglobin 31.6 28.0-32.0 pg Mean Corpuscular Hemoglobin Concent 33.4 32.0-36.0 g/dL Red Cell Distribution Width 13.6 11.8-14.3 % Platelet Count 238 140-450 10^3/uL Mean Platelet Volume 8.1 6.9-10.8 fL Neutrophils (%) (Auto) 84.0 H 37.0-80.0 % Lymphocytes (%) (Auto) 8.2 L 10.0-50.0 % Monocytes (%) (Auto) 7.6 0.0-12.0 % Eosinophils (%) (Auto) 0.0 0.0-7.0 % Basophils (%) (Auto) 0.2 0.0-2.0 % Neutrophils # (Auto) 15.5 H 1.6-8.6 10 ^3/uL Lymphocytes # (Auto) 1.5 0.4-5.4 10 ^3/uL Monocytes # (Auto) 1.4 H 0-1.3 10 ^3/uL Eosinophils # (Auto) 0 0-0.8 10 ^3/uL Basophils # (Auto) 0 0-0.2 10 ^3/uL Nucleated Red Blood Cells 0.0 % B-Type Natriuretic Peptide 158.03 0-100 pg/mL Assessment NSTEMI Type 2. UTI. LYNN. Cardiomegaly. Diverticulosis. Hypoxia. History of CVA with delayed speech. Crohn's disease. HTN. HLD. Depression. Cervical CA. Plan/Recommendation I agree with your ongoing assessment and care of plan. Trend troponin. Aspirin. IV antibiotics as ordered. Morphine for pain management. Nitrol SL. GI prophylactics. Additional plan as per the hospital course. A total of 45 minutes was spent reviewing the patient record, examining the patient, making a diagnostic and therapeutic plan, discussing this plan with medical personnel, following up on diagnostic studies and following the patient for clinical stability excluding any and all procedures. At least 50% of this time was spent in direct, [id number] contact. Plan discussed with: Patient BIBIANA ELDER MD Sep 05, 2024 18:21
[2024-09-05] MEDS: MORPHINE SULFATE INJ 2 MG/ml SYRG IV PRN (20:40)
[2024-09-05 22:48] VITALS: BP 129/51; PULSE 91; RESP 19; TEMP 98.6; O2SAT 95
[2024-09-05] MEDS: DULoxetine HCL 30 MG CAP PO SCH (22:56)
[2024-09-06] VITALS (8 sets, daily range): BP systolic 92–126; BP diastolic 40–70; PULSE 72–84; RESP 17–20; TEMP 97.8–98.6; O2SAT 91–100
[2024-09-06 06:39] LABS: Basophils # (auto) 0 10 ^3/uL (0-0.2); Basophils % (auto) 0.2 % (0.0-2.0); Eosinophils # (auto) 0 10 ^3/uL (0-0.8); Eosinophils % (auto) 0.4 % (0.0-7.0); Hematocrit 38.5 % (36.0-46.0); Hemoglobin 13.2 g/dL (12.2-16.2); Lymphocytes # (auto) 1.1 10 ^3/uL (0.4-5.4); Lymphocytes % (auto) 9.6 % (10.0-50.0); Mean Corpuscular Hemoglobin 31.8 pg (28.0-32.0); Mean Corpuscular Hgb Conc. 34.3 g/dL (32.0-36.0); Mean Corpuscular Volume 92.8 fL (80.0-100.0); Monocytes # (auto) 1.1 10 ^3/uL (0-1.3); Monocytes % (auto) 10.3 % (0.0-12.0); Neutrophils # (auto) 8.7 10 ^3/uL (1.6-8.6); Neutrophils % (auto) 79.5 % (37.0-80.0); Nucleated Red Blood Cells % 0.1 %; Platelet Count (auto) 186 10^3/uL (140-450); Red Blood Cells 4.15 10^6/uL (4.0-5.20); Red Cell Distribution Width 13.2 % (11.8-14.3)
[2024-09-06 06:55] LABS: Alanine Aminotransferase 34 U/L (7-40); Albumin 3.5 g/dL (3.2-4.8); Alkaline Phosphatase 91 U/L (46-116); Aspartate Aminotransferase 76 U/L (13-40); BUN/Creatinine Ratio 22.2 (10.0-20.0); Bilirubin, Total 1.6 mg/dL (0.2-1.0); Blood Urea Nitrogen 30 mg/dL (9-23); Calcium 9.1 mg/dL (8.7-10.4); Chloride 104 mmol/L (98-107); Glucose 112 mg/dL (74-106); Magnesium 2.1 mg/dL (1.6-2.6); Potassium 4.3 mmol/L (3.5-5.1); Sodium 136 mmol/L (136-145); Total Protein 5.6 g/dL (5.7-8.2)
[2024-09-06 07:42] LABS: Anion Gap 7 (5-15); Carbon Dioxide 25 mmol/L (20-31)
--- NOTE | 2024-09-06 14:48 | DVHPN2 ---
Subjective Complains of nausea and vomiting and abdominal pain for few days Changes from previous H/P or p: Changes Eyes: No Pain, No Vision change, No Conjunctivae inflammation, No Eyelid inflammation, No Other, No Redness ENT: No Ear pain, No Ear discharge, No Nose pain, No Nose discharge, No Nose congestion, No Mouth pain, No Mouth swelling, No Throat pain, No Throat swelling, No Other 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: No Chest Pain, No Palpitations, No Orthopnea, No Paroxysmal Noc. Dyspnea, No Edema, No Lt Headedness, No Other Respiratory: No Cough, No Dry, No Shortness of breath, No SOB with excertion, No Wheezing, No Hemoptysis, No Pleuritic Pain, No Sputum, No Other Gastrointestinal: Nausea, Vomiting; No Abdominal Pain, No Diarrhea; C onstipation; No Melena, No Hematochezia, No Other Genitourinary: No Dysuria, No Frequency, No Incontinence, No Hematuria, No Retention; Other (Oliguria) Musculoskeletal: No other, No neck pain, No shoulder pain, No arm pain, No back pain, No hand pain, No leg pain, No foot pain Skin: No Rash, No Lesions, No Jaundice, No Bruising; Other (scratches d/t dry skin) Objective Vitals Vital Signs Date Time Temp Pulse Resp B/P (MAP) Pulse Ox O2 Delivery O2 Flow Rate FiO2 09/06/24 13:00 98.0 80 18 109/70 (83) 100 98.0 09/05/24 23:28 Nasal Cannula* 3 32 Intake/Output Intake and Output 09/06/24 07:00 Intake Total 2350 ml Balance 2350 ml Intake Oral 150 ml IV Total 2200 ml # Voids 2 General Appearance: Alert, Oriented X3, Cooperative Lungs: Clear to auscultation, Normal air movement 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: Regular rate, Normal S1, Normal S2 Abdomen: Normal bowel sounds, Soft, No tenderness Extremities: No edema Medications Current Medications Medications Dose Ordered Sig/Shelly Route Start Time Stop Time Status Last Admin Dose Admin Sodium Chloride 1,000 ml @ 75 mls/hr [id number] IV 09/05/24 09:30 09/06/24 14:33 75 MLS/HR Aspirin 81 mg DAILY PO 09/05/24 10:00 09/06/24 08:15 81 MG Acetaminophen 650 mg Q6HP PRN PO 09/05/24 09:30 Hold Docusate Sodium 100 mg DAILY PO 09/05/24 10:00 09/06/24 08:15 100 MG Acetaminophen 500 mg Q6HP PRN PO 09/05/24 09:30 Hold Nitroglycerin 0.4 mg Q5MINP PRN SL 09/05/24 09:30 Morphine Sulfate 2 mg Q30M PRN IV 09/05/24 09:30 Levofloxacin/ Dextrose 100 ml @ 100 mls/hr DAILY IV 09/05/24 10:00 09/06/24 08:15 100 MLS/HR Metronidazole 100 ml @ 100 mls/hr Q8HR IV 09/05/24 14:00 09/06/24 14:33 100 MLS/HR Vitamin A/Vitamin D 5 gm DAILYP PRN TOP 09/05/24 09:30 Pantoprazole Sodium 40 mg DAILY IV 09/05/24 10:00 09/06/24 08:15 40 MG Duloxetine HCl 30 mg BID PO 09/05/24 22:00 09/06/24 08:15 30 MG Morphine Sulfate 1 mg Q4HP PRN IV 09/05/24 15:00 09/06/24 09:14 1 MG Ondansetron HCl 4 mg Q6HPRN PRN IV 09/05/24 15:00 09/05/24 16:43 4 MG Laboratory Results Laboratory Tests 09/06/24 05:46 Chemistry Test 09/06/24 05:46 Albumin 3.5 g/dL (3.2-4.8) Calcium Level 9.1 mg/dL (8.7-10.4) Magnesium Level 2.1 mg/dL (1.6-2.6) Total Protein 5.6 g/dL (5.7-8.2) L LFT Test 09/06/24 05:46 Alanine Aminotransferase (ALT) 34 U/L (7-40) Alkaline Phosphatase 91 U/L (46-116) Aspartate Amino Transferase (AST) 76 U/L (13-40) H Total Bilirubin 1.6 mg/dL (0.2-1.0) H Urinalysis Test 09/05/24 06:23 Urine Color Yellow (Yellow) Urine Clarity Ex.turbid (Clear) Urine pH 6.0 (5.0-9.0) Urine Specific [place] 1.026 (1.001-1.035) Urine Protein 1+ (Negative) H Urine Ketones Trace (Negative) Urine Blood Negative /uL (Negative) Urine Nitrite Negative (Negative) Urine Bilirubin Negative (Negative) Urine Urobilinogen Normal mg/dL (Negative) Urine Leukocyte Esterase 2+ /uL (Negative) Urine RBC 6 /hpf (0 - 4) Urine WBC 51 /hpf (0 - 5) Urine Squamous Epithelial Cells Mod /hpf (<5) Urine Bacteria Few /hpf (None Seen) H Urine Hyaline Casts Few /lpf (0 - 2) Urine Mucus Few (None Seen) Urine Glucose Normal mg/dL (Normal) Microbiology Microbiology Date/Time Source Procedure Growth Status 09/05/24 14:10 Blood Blood Culture - Preliminary NO GROWTH AFTER 24 HOURS OF INCUBATION. Resulted Assessment/Plan Assessment/Plan Intractable nausea and vomiting Abdominal pain LYNN due to vasomotor nephropathy NSTEMI type 2 Hyponatremia Leukocytosis UTI Sepsis due to UTI History of old CVA History of CHF Crohn's disease Hypertension Dyslipidemia Diverticulosis Plan Continue full liquid diet GI consult Cardiology consult for elevated troponin IV antibiotics Levaquin and Flagyl IV fluids Pain management as needed Full code Advance directives discussed for 20 minutes Plan discussed with: Patient Date of Service: Sep 06, 2024 Billing Provider: CHANDRIKA SOL MD Common Visit Codes: [id number] INP/OBS CARE(HIGH) Secondary Visit Codes: [id number] CARE PLAN 30 MINUTES CHANDRIKA SOL MD Sep 06, 2024 14:48
--- NOTE | 2024-09-06 22:51 | DVHPN2 ---
Progress Note - Dictate Date Seen: Sep 06, 2024 Medical Necessity Reason Pt with a Central, PICC or Fol: No Subjective Patient was seen and evaluated in follow up. Patient is complaining of abdominal pain with nausea, vomiting and constipation. WBC 11, BUN 30, Ndt Inspector 1.35, troponin 79. Blood cultures are pending. vital signs Vital Sign Date Time Temp Pulse Resp B/P (MAP) Pulse Ox O2 Delivery O2 Flow Rate FiO2 09/06/24 22:00 98.6 78 20 106/45 (65) 94 98.6 09/06/24 08:00 Nasal Cannula* 3 32 Total Intake and Output 09/05/24 09/05/24 09/06/24 15:00 23:00 07:00 Intake Total 925 ml 625 ml 800 ml Balance 925 ml 625 ml 800 ml medications Current Medications Medications Dose Ordered Sig/Shelly Route Start Time Stop Time Status Last Admin Dose Admin Sodium Chloride 1,000 ml @ 75 mls/hr [id number] IV 09/05/24 09:30 09/06/24 14:33 75 MLS/HR Aspirin 81 mg DAILY PO 09/05/24 10:00 09/06/24 08:15 81 MG Acetaminophen 650 mg Q6HP PRN PO 09/05/24 09:30 Hold Docusate Sodium 100 mg DAILY PO 09/05/24 10:00 09/06/24 08:15 100 MG Acetaminophen 500 mg Q6HP PRN PO 09/05/24 09:30 Hold Nitroglycerin 0.4 mg Q5MINP PRN SL 09/05/24 09:30 Morphine Sulfate 2 mg Q30M PRN IV 09/05/24 09:30 Levofloxacin/ Dextrose 100 ml @ 100 mls/hr DAILY IV 09/05/24 10:00 09/06/24 08:15 100 MLS/HR Metronidazole 100 ml @ 100 mls/hr Q8HR IV 09/05/24 14:00 09/06/24 22:23 100 MLS/HR Vitamin A/Vitamin D 5 gm DAILYP PRN TOP 09/05/24 09:30 Pantoprazole Sodium 40 mg DAILY IV 09/05/24 10:00 09/06/24 08:15 40 MG Duloxetine HCl 30 mg BID PO 09/05/24 22:00 09/06/24 22:22 30 MG Morphine Sulfate 1 mg Q4HP PRN IV 09/05/24 15:00 09/06/24 20:21 1 MG Ondansetron HCl 4 mg Q6HPRN PRN IV 09/05/24 15:00 09/05/24 16:43 4 MG objective GENERAL: Awake, alert, oriented. Obese. LUNGS: Clear. CARDIOVASCULAR: Heart sounds are good. ABDOMEN: Soft. laboratory and microbiology Laboratory Tests 09/06/24 05:46 Test 09/06/24 05:46 Range/Units Serum Glucose 112 H 74-106 mg/dL Problem List NSTEMI Type 2. UTI. LYNN. Cardiomegaly. Diverticulosis. Hypoxia. History of CVA with delayed speech. Crohn's disease. HTN. HLD. Depression. Cervical CA. Assessment/Plan Continued all current supportive medical care. Aspirin. IV antibiotics as ordered. Morphine for pain management. Nitrol SL. GI prophylactics. Additional plan as per the hospital course. Plan discussed with: Patient BIBIANA ELDER MD Sep 06, 2024 22:51
[2024-09-07] VITALS (8 sets, daily range): BP systolic 121–140; BP diastolic 54–86; PULSE 72–128; RESP 18–20; TEMP 98–98.5; O2SAT 94–98
[2024-09-07 06:10] LABS: Alanine Aminotransferase 35 U/L (7-40); Albumin 3.3 g/dL (3.2-4.8); Alkaline Phosphatase 85 U/L (46-116); Anion Gap 5 (5-15); Aspartate Aminotransferase 50 U/L (13-40); BUN/Creatinine Ratio 15.5 (10.0-20.0); Blood Urea Nitrogen 13 mg/dL (9-23); Calcium 9.1 mg/dL (8.7-10.4); Carbon Dioxide 27 mmol/L (20-31); Chloride 107 mmol/L (98-107); Glucose 104 mg/dL (74-106); Magnesium 2.1 mg/dL (1.6-2.6); Potassium 3.8 mmol/L (3.5-5.1); Sodium 139 mmol/L (136-145)
[2024-09-07 06:11] LABS: Bilirubin, Total 1.4 mg/dL (0.2-1.0); Total Protein 5.6 g/dL (5.7-8.2)
[2024-09-07 06:39] LABS: Basophils # (auto) 0 10 ^3/uL (0-0.2); Basophils % (auto) 0.5 % (0.0-2.0); Eosinophils # (auto) 0.1 10 ^3/uL (0-0.8); Eosinophils % (auto) 1.5 % (0.0-7.0); Hematocrit 38.9 % (36.0-46.0); Hemoglobin 13.2 g/dL (12.2-16.2); Lymphocytes # (auto) 1.3 10 ^3/uL (0.4-5.4); Lymphocytes % (auto) 20.2 % (10.0-50.0); Mean Corpuscular Hemoglobin 32.1 pg (28.0-32.0); Mean Corpuscular Volume 94.4 fL (80.0-100.0); Monocytes # (auto) 0.6 10 ^3/uL (0-1.3); Monocytes % (auto) 10.1 % (0.0-12.0); Neutrophils # (auto) 4.3 10 ^3/uL (1.6-8.6); Neutrophils % (auto) 67.7 % (37.0-80.0); Nucleated Red Blood Cells % 0.2 %; Platelet Count (auto) 171 10^3/uL (140-450); Red Blood Cells 4.12 10^6/uL (4.0-5.20); Red Cell Distribution Width 13.3 % (11.8-14.3); White Blood Cell 6.4 10^3/uL (4.4-10.8)
--- NOTE | 2024-09-07 13:35 | DVHINCON2 ---
GI Consult Consult Note GI consult note Date of Consultation: 08/07/2024 Chief Complaint:N/V brownish black emesis Referring Physician: H&P: 63-year-old female presented to ER complaining of nausea and vomiting, started four days ago Patient has improved nausea vomiting now. One episode of black emesis. No hematemesis Patient tolerating a full liquid diet, asking for solid food Last bowel movement this a.m., brown in color per RN Patient complaining of periumbilical right lower quadrant abdominal pain started 3-4 days ago Patient has history of Crohn's. Last colonoscopy possibly 4-5 years ago. No medications at this time Past Medical History: 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: CHF, HTN [employer]: CVA GI: Other (Crohn's disease) Psych: Depression Cervical cancer Past Surgical History: Cholecystectomy, Hysterectomy, Tubal Ligation Social History: Smoke: 1 pack per day (12 cigarettes per day) ALCOHOL: none Drugs: None Lives: with Family Family History: Noncontributory Review of Systems: Constitutional: no fever, chill, weight loss HEENT: no eye pain, no hearing loss, no oral lesion, no scleral icterus Heart: no chest pain, no chest pressure Lung: no cough, no dyspnea with exertion Abdomen: see HPI Physical exam: General: NAD, AAOX3 Chest: lung warner clear to auscultation Heart: RRR, no murmur Abdomen: non-distended, mild right lower quadrant/periumbilical tenderness to palpation, +BS Labs: Labs Test 09/07/24 04:58 09/06/24 05:46 09/05/24 06:55 09/05/24 06:23 Range/Units White Blood Count 6.4 # 4.4-10.8 10^3/uL Red Blood Count 4.12 4.0-5.20 10^6/uL Hemoglobin 13.2 12.2-16.2 g/dL Hematocrit 38.9 36.0-46.0 % Mean Corpuscular Volume 94.4 80.0-100.0 fL Mean Corpuscular Hemoglobin 32.1 H 28.0-32.0 pg Mean Corpuscular Hemoglobin Concent 34.0 32.0-36.0 g/dL Red Cell Distribution Width 13.3 11.8-14.3 % Platelet Count 171 140-450 10^3/uL Mean Platelet Volume 8.2 6.9-10.8 fL Neutrophils (%) (Auto) 67.7 37.0-80.0 % Lymphocytes (%) (Auto) 20.2 10.0-50.0 % Monocytes (%) (Auto) 10.1 0.0-12.0 % Eosinophils (%) (Auto) 1.5 0.0-7.0 % Basophils (%) (Auto) 0.5 0.0-2.0 % Neutrophils # (Auto) 4.3 1.6-8.6 10 ^3/uL Lymphocytes # (Auto) 1.3 0.4-5.4 10 ^3/uL Monocytes # (Auto) 0.6 0-1.3 10 ^3/uL Eosinophils # (Auto) 0.1 0-0.8 10 ^3/uL Basophils # (Auto) 0 0-0.2 10 ^3/uL Nucleated Red Blood Cells 0.2 % Sodium Level 139 136-145 mmol/L Potassium Level 3.8 3.5-5.1 mmol/L Chloride Level 107 98-107 mmol/L Carbon Dioxide Level 27 20-31 mmol/L Anion Gap 5 5-15 Blood Urea Nitrogen 13 # 9-23 mg/dL Creatinine 0.84 # 0.550-1.02 mg/dL Glomerular Filtration Rate Calc 79 >90 mL/min BUN/Creatinine Ratio 15.5 10.0-20.0 Serum Glucose 104 74-106 mg/dL Calcium Level 9.1 8.7-10.4 mg/dL Magnesium Level 2.1 1.6-2.6 mg/dL Total Bilirubin 1.4 H 0.2-1.0 mg/dL Aspartate Amino Transferase (AST) 50 H 13-40 U/L Alanine Aminotransferase (ALT) 35 7-40 U/L Alkaline Phosphatase 85 46-116 U/L Total Protein 5.6 L 5.7-8.2 g/dL Albumin 3.3 3.2-4.8 g/dL Troponin I High Sensitivity 79 *H </=34 ng/L Erythrocyte Sedimentation Rate 8 0-20 mm/hr Lactic Acid Level 1.4 0.4-2.0 mmol/L C-Reactive Protein High Sensitivity 3.33 H <1.0 mg/dL Amylase Level < 20 L 30-118 U/L Lipase 21 12-53 U/L Urine Color Yellow Yellow Urine Clarity Ex.turbid Clear Urine pH 6.0 5.0-9.0 Urine Specific [place] 1.026 1.001-1.035 Urine Protein 1+ H Negative Urine Ketones Trace Negative Urine Blood Negative Negative /uL Urine Nitrite Negative Negative Urine Bilirubin Negative Negative Urine Urobilinogen Normal Negative mg/dL Urine Leukocyte Esterase 2+ Negative /uL Urine RBC 6 0 - 4 /hpf Urine WBC 51 0 - 5 /hpf Urine Squamous Epithelial Cells Mod <5 /hpf Urine Bacteria Few H None Seen /hpf Urine Hyaline Casts Few 0 - 2 /lpf Urine Mucus Few None Seen Urine Glucose Normal Normal mg/dL Test 09/05/24 01:45 Range/Units B-Type Natriuretic Peptide 158.03 0-100 pg/mL Microbiology Date/Time Source Procedure Growth Status 09/05/24 14:10 Blood Blood Culture - Preliminary NO GROWTH AFTER 24 HOURS OF INCUBATION. Resulted Imaging: CT abdomen pelvis IMPRESSION: 1. Scattered colonic diverticulosis is seen without diverticulitis. 2. No abdominal mass or adenopathy. 3. No ascites. 4. No free air or inflammatory changes. 5. Additional chronic and/or ancillary findings as detailed above. 6. Suggest clinical correlation and follow-up as clinically deemed necessary. Assessment: Nausea and vomiting improving now Abdominal pain History Crohn's disease NSTEMI Diverticulosis Plan: Discussed with Dr. Collins Monitor labs Continue Colace Zofran and Protonix Advance to soft mechanical diet If any active bleeding please repeat GI services, otherwise outpatient follow-up in GI clinic in 4-6 weeks, to plan for elective procedures as needed Plan discussed with patient and RN Thank you for this consult Date of Service: Sep 07, 2024 Billing Provider: MELODIE RUTHERFORD Common Visit Codes: CONSULT ONLY Consultation Codes: [id number] CONSULT <45MIN MELODIE RUTHERFORD Sep 07, 2024 13:35
--- NOTE | 2024-09-07 14:40 | DVHPN2 ---
Subjective She is still complaining of abdominal pain No nausea or vomiting no Changes from previous H/P or p: Changes Eyes: No Pain, No Vision change, No Conjunctivae inflammation, No Eyelid inflammation, No Other, No Redness ENT: No Ear pain, No Ear discharge, No Nose pain, No Nose discharge, No Nose congestion, No Mouth pain, No Mouth swelling, No Throat pain, No Throat swelling, No Other 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: No Chest Pain, No Palpitations, No Orthopnea, No Paroxysmal Noc. Dyspnea, No Edema, No Lt Headedness, No Other Respiratory: No Cough, No Dry, No Shortness of breath, No SOB with excertion, No Wheezing, No Hemoptysis, No Pleuritic Pain, No Sputum, No Other Gastrointestinal: Nausea, Vomiting; No Abdominal Pain, No Diarrhea; C onstipation; No Melena, No Hematochezia, No Other Genitourinary: No Dysuria, No Frequency, No Incontinence, No Hematuria, No Retention; Other (Oliguria) Musculoskeletal: No other, No neck pain, No shoulder pain, No arm pain, No back pain, No hand pain, No leg pain, No foot pain Skin: No Rash, No Lesions, No Jaundice, No Bruising; Other (scratches d/t dry skin) Objective Vitals Vital Signs Date Time Temp Pulse Resp B/P (MAP) Pulse Ox O2 Delivery O2 Flow Rate FiO2 09/07/24 14:03 74 16 139/49 09/07/24 13:00 98.0 98 98.0 09/07/24 08:00 Nasal Cannula* 3 32 Intake/Output Intake and Output 09/07/24 07:00 Intake Total 2280 ml Balance 2280 ml Intake Oral 1330 ml IV Total 950 ml # Voids 7 # Bowel Movements 1 General Appearance: Alert, Oriented X3, Cooperative Lungs: Clear to auscultation, Normal air movement 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: Regular rate, Normal S1, Normal S2 Abdomen: Normal bowel sounds, Soft, No tenderness Extremities: No edema Medications Current Medications Medications Dose Ordered Sig/Shelly Route Start Time Stop Time Status Last Admin Dose Admin Aspirin 81 mg DAILY PO 09/05/24 10:00 09/07/24 08:32 81 MG Acetaminophen 650 mg Q6HP PRN PO 09/05/24 09:30 Hold Docusate Sodium 100 mg DAILY PO 09/05/24 10:00 09/06/24 08:15 100 MG Acetaminophen 500 mg Q6HP PRN PO 09/05/24 09:30 Hold Nitroglycerin 0.4 mg Q5MINP PRN SL 09/05/24 09:30 Morphine Sulfate 2 mg Q30M PRN IV 09/05/24 09:30 Levofloxacin/ Dextrose 100 ml @ 100 mls/hr DAILY IV 09/05/24 10:00 09/07/24 08:31 100 MLS/HR Metronidazole 100 ml @ 100 mls/hr Q8HR IV 09/05/24 14:00 09/07/24 13:30 100 MLS/HR Vitamin A/Vitamin D 5 gm DAILYP PRN TOP 09/05/24 09:30 Pantoprazole Sodium 40 mg DAILY IV 09/05/24 10:00 09/07/24 08:31 40 MG Duloxetine HCl 30 mg BID PO 09/05/24 22:00 09/07/24 08:32 30 MG Morphine Sulfate 1 mg Q4HP PRN IV 09/05/24 15:00 09/07/24 13:33 1 MG Ondansetron HCl 4 mg Q6HPRN PRN IV 09/05/24 15:00 09/05/24 16:43 4 MG Laboratory Results Laboratory Tests 09/07/24 04:58 Chemistry Test 09/07/24 04:58 Albumin 3.3 g/dL (3.2-4.8) Calcium Level 9.1 mg/dL (8.7-10.4) Magnesium Level 2.1 mg/dL (1.6-2.6) Total Protein 5.6 g/dL (5.7-8.2) L LFT Test 09/07/24 04:58 Alanine Aminotransferase (ALT) 35 U/L (7-40) Alkaline Phosphatase 85 U/L (46-116) Aspartate Amino Transferase (AST) 50 U/L (13-40) H Total Bilirubin 1.4 mg/dL (0.2-1.0) H Urinalysis Test 09/05/24 06:23 Urine Color Yellow (Yellow) Urine Clarity Ex.turbid (Clear) Urine pH 6.0 (5.0-9.0) Urine Specific [place] 1.026 (1.001-1.035) Urine Protein 1+ (Negative) H Urine Ketones Trace (Negative) Urine Blood Negative /uL (Negative) Urine Nitrite Negative (Negative) Urine Bilirubin Negative (Negative) Urine Urobilinogen Normal mg/dL (Negative) Urine Leukocyte Esterase 2+ /uL (Negative) Urine RBC 6 /hpf (0 - 4) Urine WBC 51 /hpf (0 - 5) Urine Squamous Epithelial Cells Mod /hpf (<5) Urine Bacteria Few /hpf (None Seen) H Urine Hyaline Casts Few /lpf (0 - 2) Urine Mucus Few (None Seen) Urine Glucose Normal mg/dL (Normal) Microbiology Microbiology Date/Time Source Procedure Growth Status 09/05/24 14:10 Blood Blood Culture - Preliminary NO GROWTH AFTER 48 HOURS OF INCUBATION. Resulted Assessment/Plan Assessment/Plan Intractable nausea and vomiting Abdominal pain LYNN due to vasomotor nephropathy NSTEMI type 2 Hyponatremia Leukocytosis UTI Sepsis due to UTI History of old CVA History of CHF Crohn's disease Hypertension Dyslipidemia Diverticulosis Plan Continue full liquid diet GI consult Cardiology consult for elevated troponin IV antibiotics Levaquin and Flagyl IV fluids Pain management as needed Full code Advance directives discussed for 20 minutes 09/07/2024: Advance diet slowly as tolerated to soft mechanical diet Physical therapy evaluation GI consult recommended outpatient follow up Discontinue the IV fluids Discharge planning for tomorrow Plan discussed with: Patient My Orders Orders - CHANDRIKA SOL MD Procedure Category Date Status Time Pt Request For Service PT 09/07/24 Logged 11:16 Date of Service: Sep 07, 2024 Billing Provider: CHANDRIKA SOL MD Common Visit Codes: [id number] INP/OBS CARE(HIGH) CHANDRIKA SOL MD Sep 07, 2024 14:40
--- NOTE | 2024-09-07 20:28 | DVHPN2 ---
Progress Note - Dictate Date Seen: Sep 07, 2024 Medical Necessity Reason Pt with a Central, PICC or Fol: No Subjective Patient was seen and evaluated in follow up. Patient is complaining of lower abdominal pain. Patient denies any nausea or vomiting. Patient is tolerating current diet. vital signs Vital Sign Date Time Temp Pulse Resp B/P (MAP) Pulse Ox O2 Delivery O2 Flow Rate FiO2 09/07/24 13:33 77 20 115/64 09/07/24 13:00 98.0 98 98.0 09/07/24 08:00 Nasal Cannula* 3 32 Total Intake and Output 09/06/24 09/06/24 09/07/24 15:00 23:00 07:00 Intake Total 650 ml 780 ml 850 ml Balance 650 ml 780 ml 850 ml medications Current Medications Medications Dose Ordered Sig/Shelly Route Start Time Stop Time Status Last Admin Dose Admin Aspirin 81 mg DAILY PO 09/05/24 10:00 09/07/24 08:32 81 MG Acetaminophen 650 mg Q6HP PRN PO 09/05/24 09:30 Hold Docusate Sodium 100 mg DAILY PO 09/05/24 10:00 09/06/24 08:15 100 MG Acetaminophen 500 mg Q6HP PRN PO 09/05/24 09:30 Hold Nitroglycerin 0.4 mg Q5MINP PRN SL 09/05/24 09:30 Morphine Sulfate 2 mg Q30M PRN IV 09/05/24 09:30 Levofloxacin/ Dextrose 100 ml @ 100 mls/hr DAILY IV 09/05/24 10:00 09/07/24 08:31 100 MLS/HR Metronidazole 100 ml @ 100 mls/hr Q8HR IV 09/05/24 14:00 09/07/24 13:30 100 MLS/HR Vitamin A/Vitamin D 5 gm DAILYP PRN TOP 09/05/24 09:30 Pantoprazole Sodium 40 mg DAILY IV 09/05/24 10:00 09/07/24 08:31 40 MG Duloxetine HCl 30 mg BID PO 09/05/24 22:00 09/07/24 08:32 30 MG Morphine Sulfate 1 mg Q4HP PRN IV 09/05/24 15:00 09/07/24 13:33 1 MG Ondansetron HCl 4 mg Q6HPRN PRN IV 09/05/24 15:00 09/05/24 16:43 4 MG objective GENERAL: Awake, alert, oriented. Obese. LUNGS: Clear. CARDIOVASCULAR: Heart sounds are good. ABDOMEN: Soft. laboratory and microbiology Laboratory Tests 09/07/24 04:58 Test 09/07/24 04:58 Range/Units Serum Glucose 104 74-106 mg/dL Problem List NSTEMI Type 2. UTI. LYNN. Cardiomegaly. Diverticulosis. Hypoxia. History of CVA with delayed speech. Crohn's disease. HTN. HLD. Depression. Cervical CA. Assessment/Plan Continued all current supportive medical care. Aspirin. IV antibiotics as ordered. Morphine for pain management. Nitrol SL. GI prophylactics. Additional plan as per the hospital course. Plan discussed with: Patient BIBIANA ELDER MD Sep 07, 2024 14:19
[2024-09-08] MEDS: MELATONIN 5 MG TAB PO ONE (00:26)
[2024-09-08 01:00] VITALS: BP 132/63; PULSE 77; RESP 20; TEMP 98.7; O2SAT 97
[2024-09-08 05:00] VITALS: BP 141/56; PULSE 71; RESP 20; TEMP 98.2; O2SAT 97
[2024-09-08 08:00] VITALS: PULSE 69; PULSE 88; RESP 20; O2SAT 98
[2024-09-08 09:00] VITALS: BP 155/70; PULSE 69; RESP 20; TEMP 98; O2SAT 97
--- NOTE | 2024-09-08 12:15 | DVHDS2 ---
Discharge Summary Date of Admission Sep 05, 2024 at 09:25 Date of Discharge: Sep 08, 2024 Labs/Diagnostic Data: Laboratory Results Test 09/07/24 04:58 09/06/24 05:46 09/05/24 06:55 09/05/24 06:23 White Blood Count 6.4 10^3/uL (4.4-10.8) Red Blood Count 4.12 10^6/uL (4.0-5.20) Hemoglobin 13.2 g/dL (12.2-16.2) Hematocrit 38.9 % (36.0-46.0) Mean Corpuscular Volume 94.4 fL (80.0-100.0) Mean Corpuscular Hemoglobin 32.1 pg (28.0-32.0) Mean Corpuscular Hemoglobin Concent 34.0 g/dL (32.0-36.0) Red Cell Distribution Width 13.3 % (11.8-14.3) Platelet Count 171 10^3/uL (140-450) Mean Platelet Volume 8.2 fL (6.9-10.8) Neutrophils (%) (Auto) 67.7 % (37.0-80.0) Lymphocytes (%) (Auto) 20.2 % (10.0-50.0) Monocytes (%) (Auto) 10.1 % (0.0-12.0) Eosinophils (%) (Auto) 1.5 % (0.0-7.0) Basophils (%) (Auto) 0.5 % (0.0-2.0) Neutrophils # (Auto) 4.3 10 ^3/uL (1.6-8.6) Lymphocytes # (Auto) 1.3 10 ^3/uL (0.4-5.4) Monocytes # (Auto) 0.6 10 ^3/uL (0-1.3) Eosinophils # (Auto) 0.1 10 ^3/uL (0-0.8) Basophils # (Auto) 0 10 ^3/uL (0-0.2) Nucleated Red Blood Cells 0.2 % Sodium Level 139 mmol/L (136-145) Potassium Level 3.8 mmol/L (3.5-5.1) Chloride Level 107 mmol/L (98-107) Carbon Dioxide Level 27 mmol/L (20-31) Anion Gap 5 (5-15) Blood Urea Nitrogen 13 mg/dL (9-23) Creatinine 0.84 mg/dL (0.550-1.02) Glomerular Filtration Rate Calc 79 mL/min (>90) BUN/Creatinine Ratio 15.5 (10.0-20.0) Serum Glucose 104 mg/dL (74-106) Calcium Level 9.1 mg/dL (8.7-10.4) Magnesium Level 2.1 mg/dL (1.6-2.6) Total Bilirubin 1.4 mg/dL (0.2-1.0) Aspartate Amino Transferase (AST) 50 U/L (13-40) Alanine Aminotransferase (ALT) 35 U/L (7-40) Alkaline Phosphatase 85 U/L (46-116) Total Protein 5.6 g/dL (5.7-8.2) Albumin 3.3 g/dL (3.2-4.8) Troponin I High Sensitivity 79 ng/L (</=34) Erythrocyte Sedimentation Rate 8 mm/hr (0-20) Lactic Acid Level 1.4 mmol/L (0.4-2.0) C-Reactive Protein High Sensitivity 3.33 mg/dL (<1.0) Amylase Level < 20 U/L (30-118) Lipase 21 U/L (12-53) Urine Color Yellow (Yellow) Urine Clarity Ex.turbid (Clear) Urine pH 6.0 (5.0-9.0) Urine Specific [place] 1.026 (1.001-1.035) Urine Protein 1+ (Negative) Urine Ketones Trace (Negative) Urine Blood Negative /uL (Negative) Urine Nitrite Negative (Negative) Urine Bilirubin Negative (Negative) Urine Urobilinogen Normal mg/dL (Negative) Urine Leukocyte Esterase 2+ /uL (Negative) Urine RBC 6 /hpf (0 - 4) Urine WBC 51 /hpf (0 - 5) Urine Squamous Epithelial Cells Mod /hpf (<5) Urine Bacteria Few /hpf (None Seen) Urine Hyaline Casts Few /lpf (0 - 2) Urine Mucus Few (None Seen) Urine Glucose Normal mg/dL (Normal) Test 09/05/24 01:45 B-Type Natriuretic Peptide 158.03 pg/mL (0-100) Other Laboratory Tests 09/07/24 04:58 Brief Hx & Hospital Course: Diagnoses: Intractable nausea and vomiting Abdominal pain LYNN due to vasomotor nephropathy NSTEMI type 2 Hyponatremia Leukocytosis UTI Sepsis due to UTI History of old CVA History of CHF Crohn's disease Hypertension Dyslipidemia Diverticulosis Evaluation including a CT scan of the abdomen which showed no significant abnormalities She has a UTI She was given IV antibiotics Now she is doing better Vital signs are stable She can be discharged home on p.o. Cipro for 5 days Continue the same home medications Follow up with her PCP as soon as possible Condition at Discharge: Stable Final Diagnosis/Problems List Intractable nausea and vomiting Abdominal pain LYNN due to vasomotor nephropathy NSTEMI type 2 Hyponatremia Leukocytosis UTI Sepsis due to UTI History of old CVA History of CHF Crohn's disease Hypertension Dyslipidemia Diverticulosis Discharge Disposition: Home SNF Discharge Will this Physician continue t: No Discharge Statement: "Patient was advised to return to the ER or call 911 if any headaches, dizziness, shortness of breath, chest pain, abdominal pain, bleeding, fevers, or worsening of medical condition. Patient was counseled about treatment plan, medications, possible side effects, patientverbalized understanding. All questions were answered to the best of my ability. This discharge took greater then 30 minutes in planning, reviewing documentation, counseling the patient, and discussing with other team members." ASSESSMENT ASSESSMENT Assessment Date of Service: Sep 08, 2024 Billing Provider: CHANDRIKA SOL MD Common Visit Codes: [id number] DISCH DAY >30min CHANDRIKA SOL MD Sep 08, 2024 12:15
[2024-09-08] MEDS ORDERED: CIPR-273 PO (12:16)
[2024-09-08 13:00] VITALS: BP 147/64; PULSE 70; RESP 18; TEMP 97.8; O2SAT 98
[2024-09-08 14:00] VITALS: BP 147/69; PULSE 70; RESP 18; TEMP 97.8; O2SAT 98
[2024-09-08] MEDS ORDERED: HYDR-4902 PO (15:40)
--- NOTE | 2024-09-08 20:46 | DVHPN2 ---
Progress Note - Dictate Date Seen: Sep 08, 2024 Medical Necessity Reason Pt with a Central, PICC or Fol: No Subjective Patient was seen and evaluated in follow up. Patient has no new complaints at this time. Patient denies any cardiac symptoms. Patient is cardiac stable for discharge. vital signs Vital Sign Date Time Temp Pulse Resp B/P (MAP) Pulse Ox O2 Delivery O2 Flow Rate FiO2 09/08/24 10:09 78 16 143/47 09/08/24 09:00 98.0 97 98.0 09/08/24 08:00 Nasal Cannula* 2 28 Total Intake and Output 09/07/24 09/07/24 09/08/24 15:00 23:00 07:00 Intake Total 200 ml 960 ml 500 ml Balance 200 ml 960 ml 500 ml medications Current Medications Medications Dose Ordered Sig/Shelly Route Start Time Stop Time Status Last Admin Dose Admin Aspirin 81 mg DAILY PO 09/05/24 10:00 09/08/24 10:05 81 MG Acetaminophen 650 mg Q6HP PRN PO 09/05/24 09:30 Hold Docusate Sodium 100 mg DAILY PO 09/05/24 10:00 09/06/24 08:15 100 MG Acetaminophen 500 mg Q6HP PRN PO 09/05/24 09:30 Hold Nitroglycerin 0.4 mg Q5MINP PRN SL 09/05/24 09:30 Morphine Sulfate 2 mg Q30M PRN IV 09/05/24 09:30 Levofloxacin/ Dextrose 100 ml @ 100 mls/hr DAILY IV 09/05/24 10:00 09/08/24 10:05 100 MLS/HR Metronidazole 100 ml @ 100 mls/hr Q8HR IV 09/05/24 14:00 09/08/24 05:58 100 MLS/HR Vitamin A/Vitamin D 5 gm DAILYP PRN TOP 09/05/24 09:30 Pantoprazole Sodium 40 mg DAILY IV 09/05/24 10:00 09/08/24 10:05 40 MG Duloxetine HCl 30 mg BID PO 09/05/24 22:00 09/08/24 10:05 30 MG Morphine Sulfate 1 mg Q4HP PRN IV 09/05/24 15:00 09/08/24 10:09 1 MG Ondansetron HCl 4 mg Q6HPRN PRN IV 09/05/24 15:00 09/05/24 16:43 4 MG objective GENERAL: Awake, alert, oriented. Obese. LUNGS: Clear. CARDIOVASCULAR: Heart sounds are good. ABDOMEN: Soft. laboratory and microbiology Laboratory Tests 09/07/24 04:58 Test 09/07/24 04:58 Range/Units Serum Glucose 104 74-106 mg/dL Problem List NSTEMI Type 2. UTI. LYNN. Cardiomegaly. Diverticulosis. Hypoxia. History of CVA with delayed speech. Crohn's disease. HTN. HLD. Depression. Cervical CA. Assessment/Plan Continued all current supportive medical care. Aspirin. IV antibiotics as ordered. Morphine for pain management. Nitrol SL. GI prophylactics. Additional plan as per the hospital course. Plan discussed with: Patient BIBIANA ELDER MD Sep 08, 2024 11:56
== END 2024-09-08 15:25 | disposition home or self-care (01) | DRG 720 ==
LOC: EDUNIT# 01:14 → EDBD 01:14 → ER 01:14 → TELE 09:25 → TELE-WESTW 22:42
PROVIDERS: ATTEND Internal Medicine Geriatric Medicine
DX: A41.9 Sepsis, unspecified organism (principal); N17.0 Acute kidney failure with tubular necrosis; I21.A1 Myocardial infarction type 2; E87.1 Hypo-osmolality and hyponatremia; I11.0 Hypertensive heart disease with heart failure; C53.9 Malignant neoplasm of cervix uteri, unspecified; E78.5 Hyperlipidemia, unspecified; F32.A Depression, unspecified; N39.0 Urinary tract infection, site not specified; K59.00 Constipation, unspecified; K57.30 Diverticulosis of large intestine without perforation or abscess without bleeding; K50.90 Crohn's disease, unspecified, without complications; F17.210 Nicotine dependence, cigarettes, uncomplicated; I50.9 Heart failure, unspecified; Z86.73 Personal history of transient ischemic attack (TIA), and cerebral infarction without residual deficits; Z80.1 Family history of malignant neoplasm of trachea, bronchus and lung; Z90.710 Acquired absence of both cervix and uterus; Z88.5 Allergy status to narcotic agent; Z88.0 Allergy status to penicillin; Z85.41 Personal history of malignant neoplasm of cervix uteri; Z83.3 Family history of diabetes mellitus; Z80.8 Family history of malignant neoplasm of other organs or systems; Z80.3 Family history of malignant neoplasm of breast; Z79.82 Long term (current) use of aspirin; Z79.899 Other long term (current) drug therapy; Z88.8 Allergy status to other drugs, medicaments and biological substances; Z90.49 Acquired absence of other specified parts of digestive tract
CPT/HCPCS: 36415; 71045; 74176; 80053; 81001; 82150; 83605; 83690; 83735; 83880; 84484; 85025; 85652; 86141; 87040; 93005; 96365; 96375; 97162; 99291; G0378; J1956; J2405; J2470; J3490

== ENCOUNTER 2025-01-29 00:16 | Emergency (ER) | payer MEDICAID ==
[~2025-01-29] VITALS: Ht 165.1 cm; Wt 115.8 kg
[~2025-01-29 00:16] MED LIST changes: +CIPR-273 PO; -DULO20CA PO; +HYDR-4902 PO
[2025-01-29 00:25] VITALS: BP 148/83; PULSE 83; RESP 18; TEMP 98.2; O2SAT 96
--- NOTE | 2025-01-29 01:34 | DVH ---
CLINICAL INDICATION: MIDDLE FINGER INJURY TECHNIQUE: XY L HAND 3V XRAY Comparison: None FINDINGS/IMPRESSION: : There is no evidence of acute fracture or dislocation. Negative ulnar variance noted. Soft tissues are unremarkable.
--- NOTE | 2025-01-29 01:49 | DVH ---
EXAM: CT LS SPINE WO CONTRAST INDICATION: S/P FALL PAIN COMPARISON: None TECHNIQUE: Multiple axial CT images of the lumbar spine were obtained using bone algorithm. Axial an d coronal reformatting was done. Bone and soft tissue windows were reviewed. Radiation Dose Information: CT Dose: CTDI volume is 39 mGy. Dose-length product is 1564 mGy*cm FINDINGS: No CT evidence of acute fracture or traumatic mal-alignment. The visualized paraspinal soft tissues a re grossly unremarkable. Moderate degenerative changes throughout the lumbar spine. 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 Chronic compression deformity of the L3 vertebral body IMPRESSION: 1. No CT evidence of acute fracture or traumatic mal-alignment of the bony lumbar spine. 2. Chronic compression deformity of the L3 vertebral body 3. 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 4. Moderate degenerative changes throughout the lumbar spine Radiation optimization: All CT scans at this facility use at least one of these dose optimization darcie hniques: automated exposure control mA and/or kV adjustment per patient size (includes targeted exam s where dose is matched to clinical indication) or iterative reconstruction.
--- NOTE | 2025-01-29 02:10 | ED.PDOC ---
Amada. trauma (HPI) HPI Comments PATIENT FELL YESTERDAY, C/O LEFT MIDDLE FINGERPAIN/SWELLING/BRUISING. PATIENT HAS FULL ROM OF THE FINGER. PATIENT ALSO COMPLAINING OF LOWER BACK PAIN 6/10 ON PAIN SCALE DESCRIBES SHARP AND ACHY BILATERAL LOWER BACK NONRADIATING INTO LEGS. NUMBNESS, WEAKNESS LOSS OF BOWEL OR BLADDER CONTROL SADDLE ANESTHESIA. Chief Complaint: Upper Extremity Time Seen by MD: 00:23 Primary Care Provider: TOYA Reviewed notes: Nurses Notes, Medications, Allergies Allergies: Coded Allergies: Codeine (Verified Allergy, Unknown, 03/10/22) Ketorolac (Verified Allergy, Unknown, 03/10/22) Penicillins (Verified Allergy, Unknown, 03/10/22) Tromethamine (Verified Allergy, Unknown, 03/10/22) Home Meds Active Scripts Hydrocodone-Acetaminophen (Hydrocodone Bitartrate/AC 5-325 mg) 1 Tab Tab, 1 TAB PO Q6HP PRN, #10 TAB Prov:CHANDRIKA SOL MD 09/08/24 Ciprofloxacin Hcl (Cipro) 250 Mg Tab, 250 MG PO BID for 5 Days, #10 TAB Prov:CHANDRIKA SOL MD 09/08/24 Duloxetine HCl (Duloxetine HCl) 30 Mg Cap, 30 MG PO BID for 30 Days, #60 CAP Prov:FARIDEH SCHAFER RESIDENT 08/02/24 Reported Medications Ergocalciferol (Vitamin D) 50,000 Unit Cap, 1 CAP PO QWEEKLY for 28 Days, #4 07/28/24 Cyanocobalamin (B12) 1,000 Mcg Tab, 1 TAB PO DAILY for 14 Days, #14 07/28/24 Clopidogrel Bisulfate (CLOPIDOGREL) 75 Mg Tab, 1 TAB PO DAILY 04/03/24 Atorvastatin Calcium (ATORVASTATIN CALCIUM) 80 Mg Tab, 1 TAB PO DAILY 04/03/24 Aspirin (Aspirin Low Dose) 81 Mg Tab, 1 TAB PO DAILY 04/03/24 Losartan Potassium (Losartan Potassium) 50 Mg Tab, 50 MG PO DAILY for 30 Days, MG 01/29/22 Mode of Arrival: Ambulatory Past Medical History PAST MEDICAL HISTORY: Cancer, CHF, CVA, Depression, HTN Surgical History: Cholecystectomy, Hysterectomy, Tubal Ligation SAMPLE FINISHER History: No Pertinent SAMPLE FINISHER History Family History Family History: Unknown Social History Smoker: Non-Smoker Alcohol: Denies ETOH Use Drugs: Denies Drug Use Lives In: Home Constitutional: denies: chills, diaphoresis, fatigue, fever, malaise, sweats, weakness, others EENTM: denies: blurred vision, double vision, ear bleeding, ear discharge, ear drainage, ear pain, ear ringing, eye pain, eye redness, hearing loss, mouth pain, mouth swelling, nasal discharge, nose bleeding, nose congestion, nose pain, photophobia, tearing, throat pain, throat swelling, voice changes, others Respiratory: denies: cough, hemoptysis, orthopnea, SOB at rest, shortness of breath, SOB with excertion, stridor, wheezing, others 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: denies: chest pain, dizzy spells, diaphoresis, Dyspnea on exertion, edema, irregular heart beat, left arm pain, lightheadedness, palpitations, PND, syncope, others Gastrointestinal: denies: abdomen distended, abdominal pain, blood streaked bowels, constipated, diarrhea, dysphagia, difficulty swallowing, hematemesis, melena, nausea, poor appetite, poor fluid intake, rectal bleeding, rectal pain, vomiting, others Genitourinary: denies: abnormal vagina bleeding, burning, dyspareunia, dysuria, flank pain, frequency, hematuria, incontinence, pain, , vagina discharge, urgency, others Neurological: denies: dizziness, fainting, headache, left sided numbness, left sided weakness, numbness, paresthesia, pre-existing deficit, right sided nu mbness, right sided weakness, seizure, speech problems, tingling, tremors, weakness, others Musculoskeletal: reports: back pain, others (LEFT HAND MIDDLE FINGER CONTUSION AND PAIN); denies: gout, joint pain, joint swelling, muscle pain, muscle stiffness, neck pain Integumetry: denies: bruises, change in color, change in hair/nails, dryness, laceration, lesions, lumps, rash, wounds, others Allergic/Immunocompromised: denies: Difficulty Healing, Frequent Infections, Hives, Itching, others Hematologic/Lymphatic: denies: anemia, blood clots, easy bleeding, easy bruising, swollen glands, others Endocrine: denies: excessive hunger, excessive sweating, excessive thirst, excessive urination, flushing, intolerance to cold, intolerance to heat, unexplained weight gain, unexplained weight loss, others Psychiatric: denies: anxiety, bipolar disorder, depression, hopeless, panic disorder, schizophrenia, sleepless, suicidal, others Physical Exam General Appearance: No Apparent Distress, Normal HEENT: Normal ENT Inspection, Pharynx Normal, TMs Normal Neck: Full Range of Motion, Non-Tender Respiratory: Chest Non-Tender, Lungs Clear, No Accessory Muscle Use, No Respiratory Distress, Normal Breath Sounds 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: No Edema, No JVD, No Murmur, No Gallop, Normal Peripheral Pulses, Regular Rate/Rhythm Breast Exam: Deferred Gastrointestinal: No Organomegaly, Non Tender, No Pulsatile Mass, Normal Bowel Sounds, Soft Genitalia: Deferred Pelvic: Deferred Rectal: Deferred Extremities: Normal capillary refill, Normal inspection, Normal range of motion, Non-tender, No pedal edema Musculoskeletal : Location: Left Extremity Location: Back (IN HIS ON PALPATION OVER LOWER BACK BILATERAL MUSCULATURE LUMBAR SPINE WITHOUT ANY STEP-OFFS CREPITUS OR TENDERNESS NEGATIVE STRAIGHT LEG RAISE BILATERAL STRENGTH SENSORY MOTION INTACT POSITIVE PEDAL PULSES), Finger 3 (MODERATE ECCHYMOSIS THROUGHOUT FINGER MILD EDEMA STRENGTH SENSORY MOTION INTACT NAIL INTACT NO NOTED ABRASIONS OR LESIONS OR LACERATIONS.) Apperance: Normal Neurologic: Alert, corn shredder II-XII nml as Tested, No Motor Deficits, Normal Affect, Normal Mood, No Sensory Deficits Cerebellar Function: Normal Reflexes: Normal Skin: Dry, Normal Color, Warm Lymphatic: No Adenopathy Was a procedure done? Was a procedure done?: No Differential Diagnosis Multiple Trauma: Fractures, Hematoma, Laceration X-Ray, Labs, Meds, VS Vital Signs Date Time Temp Pulse Resp B/P (MAP) Pulse Ox O2 Delivery O2 Flow Rate FiO2 01/29/25 00:25 98.2 83 18 148/83 (104) 96 98.2 01/29/25 00:25 Room Air 01/29/25 00:25 98.2 83 18 148/83 (104) 96 98.2 Current Medications Medications (Trade) Dose Ordered Sig/Shelly Route Start Time Stop Time Status Last Admin Oxycodone/ Acetaminophen (Percocet 5/ 325MG Tablet) 1 tab ONCE ONCE PO 01/29/25 02:15 01/29/25 02:16 DC 01/29/25 02:33 X-Ray, Labs, Meds, VS Comment LEFT HAND X-RAY SHOWS NO ACUTE FRACTURES, OSSEOUS LESIONS, OR DISLOCATIONS. LUMBAR SPINE DOES SHOW OLD COMPRESSION FRACTURE NO NEW ACUTE FRACTURES SUBLUXATIONS OR OSSEOUS LESIONS DOES SHOW SOME DEGENERATIVE CHRONIC CHANGES. PATIENT GIVEN PERCOCET 5 MG P.O. REPORTS IMPROVEMENT IN PAIN REQUESTING DISCHARGE AT THIS TIME HE IS ON ICE, REST, [id number] TYLENOL OR MOTRIN NEEDED FOR THE PAIN PER LABELED DOSING INSTRUCTIONS HE IS TO FOLLOW UP WITH HER PCP ONCE 2 DAYS CONSIDER FURTHER IMAGING SUCH MRI IF SYMPTOMS PERSIST PATIENT AND FAMILY MEMBER INDICATE UNDERSTANDING AGREE WITH DISCHARGE PLAN OF CARE Time of 1ST Reevaluation: 02:01 Reevaluation 1ST: Improved Patient Education/Counseling: Diagnosis, Treatment, Prognosis, Need For Follow Up Family Education/Counseling: Diagnosis, Treatment, Prognosis, Need For Follow Up Departure 1 Departure Time of Disposition: 02:09 Impression: Primary Impression: Sprain and strain of lumbosacral joint/ligament Qualified Codes: S33.9XXA - Sprain of unspecified parts of lumbar spine and pelvis, initial encounter Additional Impression: Contusion, finger Qualified Codes: S60.032A - Contusion of left middle finger without damage to nail, initial encounter Disposition: 01 HOME / SELF CARE / HOMELESS Condition: Stable Discharged With: Relative (Sibling) Critical Care Note Critical Care Time?: No Stability Stability form required: KENIA Benton Jan 29, 2025 02:10
[2025-01-29] MEDS ORDERED: HYDROcodone-ACET 5/325MG TAB PO ONE (02:15)
[2025-01-29] MEDS: OXYCODONE W/ ACETAMINOPHEN 5/325MG TABLET PO ONE (02:33)
== END 2025-01-29 02:42 | disposition home or self-care (01) ==
LOC: ER 00:16
DX: S39.012A Strain of muscle, fascia and tendon of lower back, initial encounter (principal); S33.5XXA Sprain of ligaments of lumbar spine, initial encounter; S60.032A Contusion of left middle finger without damage to nail, initial encounter; I11.0 Hypertensive heart disease with heart failure; I50.9 Heart failure, unspecified; F32.A Depression, unspecified; Z86.73 Personal history of transient ischemic attack (TIA), and cerebral infarction without residual deficits; Z79.02 Long term (current) use of antithrombotics/antiplatelets; Z79.82 Long term (current) use of aspirin; Z79.899 Other long term (current) drug therapy; Z90.710 Acquired absence of both cervix and uterus; Z90.49 Acquired absence of other specified parts of digestive tract; Z88.5 Allergy status to narcotic agent; Z88.0 Allergy status to penicillin
CPT/HCPCS: 72131; 73130

== ENCOUNTER 2025-05-12 11:04 | Inpatient (IN) | payer MEDICAID ==
[~2025-05-12] VITALS: Ht 165.1 cm; Wt 115.0 kg
--- NOTE | 2025-05-12 11:17 | ED.PDOC ---
HPI Comments This is a 64 year old female ANNA presenting to the ED with chief complaint of chest pain. EMS reports that the patient has been experiencing right sided chest pain with associated radiation to the back, SOB, and nausea since this morning. EMS relays that the patient was at 90% on RA, but when placed on 4L, it went up to 96% O2 saturation. Patient denies any vomiting, abdominal pain, fever, chills, dizziness, numbness, or weakness. Time Seen by MD: 11:15 Primary Care Provider: TOYA Reviewed Notes: Nurses Notes, Catalyst Operator Gasoline Notes, Medications, Allergies Allergies: Coded Allergies: Codeine (Verified Allergy, Unknown, 03/10/22) Ketorolac (Verified Allergy, Unknown, 03/10/22) Penicillins (Verified Allergy, Unknown, 03/10/22) Tromethamine (Verified Allergy, Unknown, 03/10/22) Home Meds Active Scripts Hydrocodone-Acetaminophen (Hydrocodone Bitartrate/AC 5-325 mg) 1 Tab Tab, 1 TAB PO Q6HP PRN, #10 TAB Prov:CHANDRIKA SOL MD 09/08/24 Ciprofloxacin Hcl (Cipro) 250 Mg Tab, 250 MG PO BID for 5 Days, #10 TAB Prov:CHANDRIKA SOL MD 09/08/24 Duloxetine HCl (Duloxetine HCl) 30 Mg Cap, 30 MG PO BID for 30 Days, #60 CAP Prov:FARIDEH SCHAFER RESIDENT 08/02/24 Reported Medications Ergocalciferol (Vitamin D) 50,000 Unit Cap, 1 CAP PO QWEEKLY for 28 Days, #4 07/28/24 Cyanocobalamin (B12) 1,000 Mcg Tab, 1 TAB PO DAILY for 14 Days, #14 07/28/24 Clopidogrel Bisulfate (CLOPIDOGREL) 75 Mg Tab, 1 TAB PO DAILY 04/03/24 Atorvastatin Calcium (ATORVASTATIN CALCIUM) 80 Mg Tab, 1 TAB PO DAILY 04/03/24 Aspirin (Aspirin Low Dose) 81 Mg Tab, 1 TAB PO DAILY 04/03/24 Losartan Potassium (Losartan Potassium) 50 Mg Tab, 50 MG PO DAILY for 30 Days, MG 01/29/22 Information Source: Patient, Emergency Med Personnel Mode of Arrival: EMS Severity: Moderate Timing: Hours Duration: Since onset Prehospital treatment: None Location: Chest (R) Radiation: Back Quality: Sharp Onset: At Rest Cardiac Risk Factors: Smoker, Hyperlipidemia, HTN PE Risk Factors: None History of: Similar pain in past Associated Signs and Symptoms: SOB Past Medical History PAST MEDICAL HISTORY: Cancer, CHF, CVA, Depression, HTN Surgical History: Cholecystectomy, Hysterectomy, Tubal Ligation CABLE PULLER History: No Pertinent CABLE PULLER History Family History Family History: Unknown Social History Smoker: Cigarettes Alcohol: Denies ETOH Use Drugs: Denies Drug Use Lives In: Home Constitutional: denies: chills, diaphoresis, fatigue, fever, malaise, sweats, weakness, others EENTM: denies: blurred vision, double vision, ear bleeding, ear discharge, ear drainage, ear pain, ear ringing, eye pain, eye redness, hearing loss, mouth pain, mouth swelling, nasal discharge, nose bleeding, nose congestion, nose pain, photophobia, tearing, throat pain, throat swelling, voice changes, others Respiratory: reports: shortness of breath; denies: cough, hemoptysis, orthopnea, SOB at rest, SOB with excertion, stridor, wheezing, others 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: reports: chest pain; denies: dizzy spells, diaphoresis, Dyspnea on exertion, edema, irregular heart beat, left arm pain, lightheadedness, palpitations, PND, syncope, others Gastrointestinal: reports: nausea; denies: abdomen distended, abdominal pain, blood streaked bowels, constipated, diarrhea, dysphagia, difficulty swallowing, hematemesis, melena, poor appetite, poor fluid intake, rectal bleeding, rectal pain, vomiting, others Genitourinary: denies: abnormal vagina bleeding, burning, dyspareunia, dysuria, flank pain, frequency, hematuria, incontinence, pain, , vagina discharge, urgency, others Neurological: denies: dizziness, fainting, headache, left sided numbness, left sided weakness, numbness, paresthesia, pre-existing deficit, right sided numbness, right sided weakness, seizure, speech problems, tingling, tremors, weakness, others Musculoskeletal: denies: back pain, gout, joint pain, joint swelling, muscle pain, muscle stiffness, neck pain, others Integumetry: denies: bruises, change in color, change in hair/nails, dryness, laceration, lesions, lumps, rash, wounds, others Allergic/Immunocompromised: denies: Difficulty Healing, Frequent Infections, Hives, Itching, others Hematologic/Lymphatic: denies: anemia, blood clots, easy bleeding, easy bruising, swollen glands, others Endocrine: denies: excessive hunger, excessive sweating, excessive thirst, excessive urination, flushing, intolerance to cold, intolerance to heat, unexplained weight gain, unexplained weight loss, others Psychiatric: denies: anxiety, bipolar disorder, depression, hopeless, panic disorder, schizophrenia, sleepless, suicidal, others All Other Systems: Reviewed and Negative Physical Exam General Appearance: Moderate Distress, Normal HEENT: Normal ENT Inspection, Pharynx Normal, TMs Normal Neck: Full Range of Motion, Non-Tender, Normal, Normal Inspection Respiratory: Chest Non-Tender, Lungs Clear, No Accessory Muscle Use, No Respiratory Distress, Normal Breath Sounds 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: No Edema, No JVD, No Murmur, No Gallop, Normal Peripheral Pulses, Regular Rate/Rhythm Breast Exam: Deferred Gastrointestinal: No Organomegaly, Non Tender, No Pulsatile Mass, Normal Bowel Sounds, Soft Genitalia: Deferred Pelvic: Deferred Rectal: Deferred Extremities: No calf tenderness, Normal capillary refill, Normal inspection, Normal range of motion, Non-tender, No pedal edema Musculoskeletal : Apperance: Normal Neurologic: Alert, permaculture designer II-XII nml as Tested, No Motor Deficits, Normal Affect, Normal Mood, No Sensory Deficits Cerebellar Function: Normal Reflexes: Normal Skin: Dry, Normal Color, Warm Peripheral Pulses: 3+ Radial (R), 3+ Radial (L) Lymphatic: No Adenopathy EKG EKG : Pulse Rate (adult): 65 [place]: Normal Cardiac Rhythm: NSR Block: None Hypertrophy: None ST: Normal Was a procedure done? Was a procedure done?: No CP Differential Dx Differential Diagnosis: A-fib, A-Flutter, Angina, Anxiety / Panic Attack, Atrial Dysrhythmia, Electrolyte Disorder X-Ray, Labs, Meds, VS Vital Signs Date Time Temp Pulse Resp B/P (MAP) Pulse Ox O2 Delivery O2 Flow Rate FiO2 05/12/25 11:17 65 05/12/25 11:10 65 05/12/25 11:08 97.8 65 21 138/86 96 97.8 Patient alert. Complaining of chest discomfort. Vitals stable. Answering questions pain EKG reviewed does not show any acute changes. She does have possible COPD exacerbation. Continues to smoke cigarettes. Possible musculoskeletal. Reviewed her previous visit. Explained to the patient. Continue monitoring. Time of 1ST Reevaluation: 12:11 Reevaluation 1ST: Unchanged Patient Education/Counseling: Diagnosis, Treatment Family Education/Counseling: No Family Present SEPSIS Sepsis Screen Physician Orders Troponin-I Hs (05/12/25 11:14) Complete Blood Count (05/12/25 11:14) Urinalysis (05/12/25 11:14) Basic Metabolic Panel (05/12/25 11:14) Electrocardigram (05/12/25 11:10) Vital Signs Date Time Temp Pulse Resp B/P (MAP) Pulse Ox O2 Delivery O2 Flow Rate FiO2 05/12/25 11:17 65 05/12/25 11:10 65 05/12/25 11:08 97.8 65 21 138/86 96 97.8 Departure 1 Departure Time of Disposition: 11:31 Impression: Primary Impression: Chest pain of unknown etiology Disposition: ADMITTED INPATIENT Admit to: Med Surg Condition: Guarded Critical Care Note Critical Care Time?: No Stability Stability form required: No Heart Score Heart Score: Heart Score Response (Comments) Value History Highly Suspicious 2 EKG Normal 0 Age 45-64 1 Risk Factors >3 or Hx ASHD 2 Troponin Normal limit 0 Total 5 I personally scribed for EUSEBIA MARTINO MD ([email or web address]) on 05/12/25 at 11:17. Electronically submitted by Schuyler Holden ([email or web address]). EUSEBIA MARTINO MD May 12, 2025 11:17
[2025-05-12 12:59] LABS: Hematocrit 47.4 % (36.0-46.0); Hemoglobin 16.0 g/dL (12.2-16.2); Mean Corpuscular Hemoglobin 31.3 pg (28.0-32.0); Mean Corpuscular Volume 92.5 fL (80.0-100.0); Nucleated Red Blood Cells % 0.1 %
[2025-05-12 13:10] LABS: Potassium 4.3 mmol/L (3.5-5.1); Sodium 141 mmol/L (136-145)
[2025-05-12 13:11] LABS: Anion Gap 7 (5-15); Carbon Dioxide 27 mmol/L (20-31)
[2025-05-12 13:16] LABS: BUN/Creatinine Ratio 11.5 (10.0-20.0); Blood Urea Nitrogen 11 mg/dL (9-23); Glucose 100 mg/dL (74-106)
[2025-05-12 13:18] LABS: Chloride 107 mmol/L (98-107)
[2025-05-12 13:24] LABS: Calcium 9.3 mg/dL (8.7-10.4)
[2025-05-12] MEDS: HYDROcodone-ACET 5/325MG TAB PO ONE (18:22)
--- NOTE | 2025-05-12 18:28 | ECG ---
[facility] Test Date: 2025-05-12 Test Time: 11:10:08 Pat Name: MARCO CALLE Department: ED Room: [facility]1T Gender: F Network/Telecom Engineer: MARLENY : 1960 Requested By: EUSEBIA MARTINO Order Number: [id number] Reading MD: Guillermo Andrew Measurements Intervals [place] Rate: 65 P: 58 NH: 137 QRS: 15 QRSD: 95 T: 25 QT: 451 QTc: 469 Interpretive Statements Sinus rhythm Abnormal R-wave progression, early transition Electronically Signed On 05-15-2025 22:02:28 PDT by Guillermo Andrew Please click the below link to view image of tracing.
[2025-05-12] MEDS ORDERED: DOCUSATE SOD 100 MG CAP PO PRN (20:45)
[2025-05-12] MEDS ORDERED: ONDANSETRON HCL 4 MG/2 ML VIAL IV PRN (20:45)
[2025-05-12] MEDS ORDERED: ACETAMINOPHEN 325 MG TAB PO PRN (20:45)
[2025-05-12] MEDS ORDERED: NITROGLYCERIN 0.4 MG SL TAB SL PRN (23:45)
--- NOTE | 2025-05-12 23:46 | DVHHP2 ---
History of Present Illness Reason for Visit: Acute chest pain History of Present Illness The patient is a 64-year-old female with past medical history of CHF, cancer, CHF, depression, and hypertension who presented to [facility] ED with complaint of chest pain. Patient reports that she has been experiencing right-sided chest pain radiating to the back, associated with nausea, shortness of breaths, getting worse that prompted this visit. Patient was seen and evaluated in the ED, laboratory data shows WBC 5.7, platelets 167, sodium 141, potassium 4.3, BUN 11, creatinine 0.96, glucose 100, calcium 9.3, troponin 22, blood pressure 138/92, pulse 75, temperature 98.2 F, O2 saturation 95% on oxyg en. Patient was given aspirin 162 mg p.o. x1, please see medication orders section in the computer. On my assessment, patient denied chest pain at this moment, no dizziness, no headache, no numbness, no shortness of breath, no diaphoresis, no nausea, no vomiting, no fever, no chills. Patient was admitted for further evaluation and medical management. Past Medical History Cancer, CHF, CVA, Depression, HTN Past Surgical History Cholecystectomy, Hysterectomy, Tubal Ligation Family History Reviewed, noncontributory to the management of this case. Past Social History The patient lives at home, smokes cigarettes, denies alcohol or illicit drugs abuse. Review of Systems Constitutional: Yes: Weakness; No: Fever, Chills, Sweats, Malaise, Other Eyes: No: Pain, Vision change, Conjunctivae inflammation, Eyelid inflammation, Other, Redness ENT: No: Ear pain, Ear discharge, Nose pain, Nose discharge, Nose congestion, Mouth pain, Mouth swelling, Throat pain, Throat swelling, Other Respiratory: Shortness of breath; No: Cough, Dry, SOB with excertion, Wheezing, Hemoptysis, Pleuritic Pain, Sputum, Wheezing, Other 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: Chest Pain; No: Palpitations, Orthopnea, Paroxysmal Noc. Dyspnea, Edema, Lt Headedness, Other Gastrointestinal: Nausea; No: Vomiting, Abdominal Pain, Diarrhea, Constipation, Melena, Hematochezia, Other Genitourinary: No Dysuria, No Frequency, No Incontinence, No Hematuria, No Retention, No Other Musculoskeletal: No: other, neck pain, shoulder pain, arm pain, back pain, hand pain, leg pain, foot pain Skin: No: Rash, Lesions, Jaundice, Bruising, Other Neurological: No: Weakness, Numbness, Incoordination, Change in speech, Confusion, Seizures, Other Allergies: Coded Allergies: Codeine (Verified Allergy, Unknown, 03/10/22) Ketorolac (Verified Allergy, Unknown, 03/10/22) Penicillins (Verified Allergy, Unknown, 03/10/22) Tromethamine (Verified Allergy, Unknown, 03/10/22) Medications Current Medications Medications Dose Ordered Sig/Shelly Route Start Time Stop Time Status Last Admin Dose Admin Aspirin 81 mg DAILY PO 05/13/25 10:00 Atorvastatin Calcium 40 mg HS PO 05/12/25 22:00 Losartan Potassium 50 mg DAILY PO 05/13/25 10:00 Clopidogrel Bisulfate 75 mg DAILY PO 05/13/25 10:00 Duloxetine HCl 30 mg BID PO 05/12/25 22:00 Sodium Chloride 10 ml Q8HR IV 05/12/25 22:00 Ondansetron HCl 4 mg Q4HP PRN IV 05/12/25 20:45 Docusate Sodium 100 mg BIDPRN PRN PO 05/12/25 20:45 Acetaminophen 650 mg Q6HP PRN PO 05/12/25 20:45 Exam Vital Signs Vital Signs Date Time Temp Pulse Resp B/P (MAP) Pulse Ox O2 Delivery O2 Flow Rate FiO2 05/12/25 18:05 98.2 75 18 138/92 (107) 95 98.2 General Appearance: Alert, Oriented X3, Cooperative, No acute distress HEENT: Atraumatic, PERRLA, EOMI, Mucous membr. moist/pink Respiratory: Normal air movement 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: Regular rate, Normal S1, Normal S2, No murmurs Abdominal: Normal bowel sounds, Soft, No tenderness, No hepatospenomegaly, No masses Extremities: No clubbing, No cyanosis, No edema, Normal pulses, No tenderness/swelling Skin: No rashes, No significant lesion Neuro: Normal speech, Normal tone, Sensation intact, Cranial nerves 3-12 NL, Reflexes 2+, Other (Generalized weakness) Psych/Mental Status: Mental status NL, Mood NL Labs/Xrays Labs Test 05/12/25 12:24 Range/Units White Blood Count 5.7 4.4-10.8 10^3/uL Red Blood Count 5.12 4.0-5.20 10^6/uL Hemoglobin 16.0 12.2-16.2 g/dL Hematocrit 47.4 H 36.0-46.0 % Mean Corpuscular Volume 92.5 80.0-100.0 fL Mean Corpuscular Hemoglobin 31.3 28.0-32.0 pg Mean Corpuscular Hemoglobin Concent 33.8 32.0-36.0 g/dL Red Cell Distribution Width 13.4 11.8-14.3 % Platelet Count 167 140-450 10^3/uL Mean Platelet Volume 8.1 6.9-10.8 fL Neutrophils (%) (Auto) 58.4 37.0-80.0 % Lymphocytes (%) (Auto) 28.2 10.0-50.0 % Monocytes (%) (Auto) 9.1 0.0-12.0 % Eosinophils (%) (Auto) 3.5 0.0-7.0 % Basophils (%) (Auto) 0.8 0.0-2.0 % Neutrophils # (Auto) 3.4 1.6-8.6 10 ^3/uL Lymphocytes # (Auto) 1.6 0.4-5.4 10 ^3/uL Monocytes # (Auto) 0.5 0-1.3 10 ^3/uL Eosinophils # (Auto) 0.2 0-0.8 10 ^3/uL Basophils # (Auto) 0 0-0.2 10 ^3/uL Nucleated Red Blood Cells 0.1 % Sodium Level 141 136-145 mmol/L Potassium Level 4.3 3.5-5.1 mmol/L Chloride Level 107 98-107 mmol/L Carbon Dioxide Level 27 20-31 mmol/L Anion Gap 7 5-15 Blood Urea Nitrogen 11 9-23 mg/dL Creatinine 0.96 0.550-1.02 mg/dL Glomerular Filtration Rate Calc 66 >90 mL/min BUN/Creatinine Ratio 11.5 10.0-20.0 Serum Glucose 100 74-106 mg/dL Calcium Level 9.3 8.7-10.4 mg/dL Troponin I High Sensitivity 22 </=34 ng/L SEPSIS Sepsis Screen Date sepsis recognized/suspect: May 12, 2025 Time Sepsis recognized/suspect: 1108 Recent Procedure: No On Antibiotic Therapy: No Respiratory Rate >20: Yes Heart Rate >90: No Temp<36 C (96.8 F) or >38.3 C: No SBP <90 or MAP <65 mmHG: No New Acute Mental Status Change: No Is the patient on CPAP, BIPAP,: No Physician Orders Cardiac Diet-2gna,Lofat,Lochol (05/12/25 Dinner) Aspirin Tablet (05/13/25 10:00) Atorvastatin (Lipitor) (05/12/25 22:00) Losartan Tablet (Cozaar Tablet) (05/13/25 10:00) Clopidogrel Bisulfate (Plavix) (05/13/25 10:00) Duloxetine Hcl Capsule (Cymbalta Capsule (05/12/25 22:00) Allergies (05/12/25 20:34) Code Status (05/12/25 20:34) Sodium Chloride Lock (Saline Lock Ns) (05/12/25 22:00) Oxygen Per Hour (05/12/25 20:34) Ondansetron Hcl (Zofran) (05/12/25 20:45) Docusate Sodium Capsule (Colace Capsule) (05/12/25 20:45) Complete Blood Count (05/13/25 04:00) Comprehensive Metabolic Panel (05/13/25 04:00) Condition: Serious (05/12/25 20:34) Acetaminophen Tablet (Tylenol Tablet) (05/12/25 20:45) Bedrest With Bathroom Privileg (05/12/25 20:34) Sequential Compression Device (05/12/25 ) Vital Signs Date Time Temp Pulse Resp B/P (MAP) Pulse Ox O2 Delivery O2 Flow Rate FiO2 05/12/25 18:05 98.2 75 18 138/92 (107) 95 98.2 Laboratory Tests Test 05/12/25 12:24 White Blood Count 5.7 10^3/uL (4.4-10.8) Medications Medications Dose Ordered Sig/Shelly Route Start Time Stop Time Status Last Admin Dose Admin Acetaminophen/ Hydrocodone Bitart 1 tab ONCE ONCE PO 05/12/25 18:15 05/12/25 18:17 DC 05/12/25 18:22 1 TAB Assessment/Plan Assessment/Plan Chest pain of unknown etiology Shortness of breaths Generalized weakness Plan 1. Admit to telemetry unit 2. Breathing treatment 3. Pain control management 4. Management of fluids and electrolytes 5. Consultation for hospitalist 6. Diagnostic tests chest x-ray 7. DVT prophylaxis on aspirin 8. Repeat labs CBC, CMP in a.m. 9. Continue with current medical management 10. Treatment plan discussed with patient and RN. Patient verbalized understanding. Plan discussed with: Patient, Other (RN) My Orders Orders - JAVI FAULKNER DNP Procedure Category Date Status Time Aspirin Tablet PHA 05/13/25 In Process 10:00 Atorvastatin (Lipitor) PHA 05/12/25 In Process 22:00 Losartan Tablet PHA 05/13/25 In Process (Cozaar Tablet) 10:00 Clopidogrel Bisulfate PHA 05/13/25 In Process (Plavix) 10:00 Duloxetine Hcl PHA 05/12/25 In Process Capsule (Cymbalta 22:00 Allergies ELEONORA 05/12/25 In Process 20:34 Code Status CODE 05/12/25 Transmitted 20:34 Sodium Chloride Lock PHA 05/12/25 In Process (Saline Lock Ns) 22:00 Oxygen Per Hour RT 05/12/25 Transmitted 20:34 Ondansetron Hcl PHA 05/12/25 In Process (Zofran) 20:45 Docusate Sodium PHA 05/12/25 In Process Capsule (Colace 20:45 Complete Blood Count LAB 05/13/25 Verified 04:00 Comprehensive LAB 05/13/25 Verified Metabolic Panel 04:00 Condition: Serious ELEONORA 05/12/25 In Process 20:34 Acetaminophen Tablet PHA 05/12/25 In Process (Tylenol Tablet) 20:45 Bedrest With Bathroom ELEONORA 05/12/25 In Process Privileg 20:34 Sequential ELEONORA 05/12/25 In Process Compression Device Problem List: (1) Chest pain of unknown etiology (2) Shortness of breath (3) Generalized weakness Date of Service: May 12, 2025 Billing Provider: JAVI FAULKNER DNP Common Visit Codes: [id number] INP/OBS CARE (HIGH) JAVI FAULKNER DNP May 12, 2025 23:46
[2025-05-13] VITALS (9 sets, daily range): BP systolic 103–138; BP diastolic 57–88; PULSE 54–70; RESP 18–22; TEMP 97.5–99.1; O2SAT 95–100
[2025-05-13] MEDS: ATORVASTATIN 20 MG TAB PO SCH (02:40)
[2025-05-13] MEDS: SODIUM CHLOR 0.9% PF (SALINE LOCK) 10ML VIAL/SYR IV SCH (02:41)
[2025-05-13 07:08] LABS: Hematocrit 45.5 % (36.0-46.0); Hemoglobin 15.6 g/dL (12.2-16.2); Mean Corpuscular Hemoglobin 31.3 pg (28.0-32.0); Mean Corpuscular Volume 91.4 fL (80.0-100.0); Nucleated Red Blood Cells % 0.2 %
[2025-05-13 07:26] LABS: Albumin 4.0 g/dL (3.2-4.8); Alkaline Phosphatase 105 U/L (46-116); Anion Gap 9 (5-15); BUN/Creatinine Ratio 11.6 (10.0-20.0); Blood Urea Nitrogen 14 mg/dL (9-23); Calcium 9.1 mg/dL (8.7-10.4); Carbon Dioxide 26 mmol/L (20-31); Chloride 107 mmol/L (98-107); Glucose 94 mg/dL (74-106); Potassium 4.0 mmol/L (3.5-5.1); Sodium 142 mmol/L (136-145); Total Protein 6.4 g/dL (5.7-8.2)
[2025-05-13 07:27] LABS: Bilirubin, Total 0.5 mg/dL (0.2-1.0)
[2025-05-13 07:29] LABS: Alanine Aminotransferase < 9 U/L (7-40)
[2025-05-13] MEDS: CLOPIDOGREL BISULFATE 75 MG TAB PO SCH (10:01)
[2025-05-13] MEDS: LOSARTAN POTASSIUM 50 MG TAB PO SCH (10:02)
[2025-05-13] MEDS: NICOTINE 21MG/24 HR TOPICAL PATCH TD SCH (13:35)
--- NOTE | 2025-05-13 15:46 | DVHPN2 ---
Subjective Continues to complain of chest pain and shortness of breath Reviewed: Care Plan, H&P, Labs, Medications, Previous Orders, Radiology Changes from previous H/P or p: No Changes Objective Vitals Vital Signs Date Time Temp Pulse Resp B/P (MAP) Pulse Ox O2 Delivery O2 Flow Rate FiO2 05/13/25 10:02 132/87 05/13/25 09:00 98.0 54 19 96 98.0 05/13/25 08:00 Room Air* 0 21 Intake/Output Intake and Output 05/13/25 07:00 Intake Total 290 ml Balance 290 ml Intake Oral 290 ml General Appearance: Alert, Oriented X3, Cooperative, No acute distress HEENT: Atraumatic Lungs: Clear to auscultation, Normal air movement Chest/Breasts: Other (Loop recorder in place) 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: Regular rate, Normal S1, Normal S2, No murmurs Abdomen: Normal bowel sounds, Soft, No tenderness Neuro: Other (Slurred speech with facial droop) Psych/Mental Status: Mental status NL, Mood NL Medications Current Medications Medications Dose Ordered Sig/Shelly Route Start Time Stop Time Status Last Admin Dose Admin Aspirin 81 mg DAILY PO 05/13/25 10:00 05/13/25 10:01 81 MG Atorvastatin Calcium 40 mg HS PO 05/12/25 22:00 05/13/25 02:40 40 MG Losartan Potassium 50 mg DAILY PO 05/13/25 10:00 05/13/25 10:02 50 MG Clopidogrel Bisulfate 75 mg DAILY PO 05/13/25 10:00 05/13/25 10:01 75 MG Duloxetine HCl 30 mg BID PO 05/12/25 22:00 05/13/25 02:39 30 MG Sodium Chloride 10 ml Q8HR IV 05/12/25 22:00 05/13/25 13:35 10 ML Ondansetron HCl 4 mg Q4HP PRN IV 05/12/25 20:45 Docusate Sodium 100 mg BIDPRN PRN PO 05/12/25 20:45 Acetaminophen 650 mg Q6HP PRN PO 05/12/25 20:45 Nitroglycerin 0.4 mg Q5MINP PRN SL 05/12/25 23:45 Morphine Sulfate 2 mg Q30M PRN IV 05/12/25 23:45 Nicotine 1 patch DAILY TD 05/13/25 12:45 05/13/25 13:35 1 PATCH Laboratory Results Laboratory Tests 05/13/25 05:12 Chemistry Test 05/13/25 05:12 Albumin 4.0 g/dL (3.2-4.8) Calcium Level 9.1 mg/dL (8.7-10.4) Total Protein 6.4 g/dL (5.7-8.2) LFT Test 05/13/25 05:12 Alanine Aminotransferase (ALT) < 9 U/L (7-40) Alkaline Phosphatase 105 U/L (46-116) Aspartate Amino Transferase (AST) 14 U/L (13-40) Total Bilirubin 0.5 mg/dL (0.2-1.0) Labs and/or images reviewed: Labs reviewed by me, Image(s) reviewed by me Assessment/Plan Assessment/Plan A 64 year old female patient; with multiple comorbidities; who presented to the emergency department with chest pain and shortness of breath. Acute chest pain; to rule out ACS Shortness of breath with elevated D-dimer; to rule out PE History of stroke with residual dysarthria and facial droop History of arrhythmia; loop recorder in place Hypertensive heart disease Tobacco use disorder Morbid obesity Continue aspirin, statin, and globulin Reviewed lab work and imaging studies along with a EKGs Cardiology consulted Continue antihypertensive medications and adjust according to blood pressure readings Counseled the patient on the importance of adopting healthy lifestyle with diet and exercise in order to lose weight Counseled on tobacco use cessation for 16 minutes Telemetry Goals of care discussed with the patient for 20 minutes; full code Late Entry. This medical document was created using an electronic medical record system with computerized dictation system. Although this document has been carefully reviewed, there might still be some phonetic and typographical errors. These areas are purely typographical due to imperfections of the software programs, and do not reflect any compromise in the patient's medical care. Plan discussed with: Patient, Other (Nurse) My Orders Orders - LUIS VELÁZQUEZ MD Procedure Category Date Status Time Nicotine 21mg/24hr PHA 05/13/25 In Process (Nicoderm 21mg/24hr) 12:45 Pt Request For Service PT 05/13/25 Logged 12:43 Date of Service: May 13, 2025 Billing Provider: LUIS VELÁZQUEZ MD Common Visit Codes: [id number] INP/OBS CARE(HIGH) Secondary Visit Codes: [id number] CHNG SMOKING >10MIN (16 minutes), 13141- ADVANCED CARE PLAN 30 MINUTES (20 minutes) LUIS VELÁZQUEZ MD May 13, 2025 15:46
[2025-05-13] MEDS: MORPHINE SULFATE INJ 2 MG/ml SYRG IV PRN (17:22)
--- NOTE | 2025-05-13 19:04 | DVH ---
CHEST RADIOGRAPH Indication: Chest pain. Thank You! Technique: Single frontal view of the chest was obtained Comparison: XY CHEST PORTABLE on DOS: 09/05/24, XY CHEST PORTABLE on DOS: 07/26/24, XY CHEST PORTABLE on DOS: 05/29/24 FINDINGS: Lines and Tubes: Loop recorder over the left chest Lungs: No focal consolidation. Pleura: No effusion. No pneumothorax. Cardiomediastinal contours: No change in cardiac size from 09/05/2024 Bones: No acute osseous abnormality. IMPRESSION: 1. Mildly more prominent interstitial markings throughout both lung warner. 2. Correlate for possible congestive failure.
[2025-05-14] VITALS (8 sets, daily range): BP systolic 115–132; BP diastolic 57–75; PULSE 55–72; RESP 12–20; TEMP 97.1–98; O2SAT 94–98
--- NOTE | 2025-05-14 00:55 | DVHINCON2 ---
Date of service: May 13, 2025 Referring Physician Kristina Reason for Consultation Chest pain. History of Present Illness This is a 64 year old female with a PMH of Cancer, CHF, CVA, Depression, HTN brought in by EMS with complaints of chest pain. EMS reports that the patient has been experiencing right sided chest pain with associated radiation to the back, SOB, and nausea since this morning. EMS notes that on scene the patient was at 90% on RA, but when placed on 4L, it went up to 96% O2 saturation. D- DIMER 0.52, STUDENT OFFICER 1.21. Troponin is negative. EKG is NSR at 65. Chest x-ray shows mildly more prominent interstitial markings throughout both lung warner. Patient was admitted to the hospital. I am asked to consult on this patient. Family History: Diabetes mellitus G8 SISTER G8 SISTER FH: brain cancer G8 MOTHER FH: cancer G8 MOTHER G8 FATHER Allergies: Coded Allergies: Codeine (Verified Allergy, Unknown, 03/10/22) Ketorolac (Verified Allergy, Unknown, 03/10/22) Penicillins (Verified Allergy, Unknown, 03/10/22) Tromethamine (Verified Allergy, Unknown, 03/10/22) Home Meds Active Scripts Hydrocodone-Acetaminophen (Hydrocodone Bitartrate/AC 5-325 mg) 1 Tab Tab, 1 TAB PO Q6HP PRN, #10 TAB Prov:CHANDRIKA SOL MD 09/08/24 Ciprofloxacin Hcl (Cipro) 250 Mg Tab, 250 MG PO BID for 5 Days, #10 TAB Prov:CHANDRIKA SOL MD 09/08/24 Reported Medications Ergocalciferol (Vitamin D) 50,000 Unit Cap, 1 CAP PO QWEEKLY for 28 Days, #4 07/28/24 Cyanocobalamin (B12) 1,000 Mcg Tab, 1 TAB PO DAILY for 14 Days, #14 07/28/24 Clopidogrel Bisulfate (CLOPIDOGREL) 75 Mg Tab, 1 TAB PO DAILY 04/03/24 Atorvastatin Calcium (ATORVASTATIN CALCIUM) 80 Mg Tab, 1 TAB PO DAILY 04/03/24 Aspirin (Aspirin Low Dose) 81 Mg Tab, 1 TAB PO DAILY 04/03/24 Losartan Potassium (Losartan Potassium) 50 Mg Tab, 50 MG PO DAILY for 30 Days, MG 01/29/22 Current Medications Current Medications Medications (Trade) Dose Ordered Sig/Shelly Route PRN Reason Start Time Stop Time Status Last Admin Aspirin 81 mg DAILY PO 05/13/25 10:00 05/13/25 10:01 Losartan Potassium (Cozaar Tablet) 50 mg DAILY PO 05/13/25 10:00 05/13/25 10:02 Clopidogrel Bisulfate (Plavix) 75 mg DAILY PO 05/13/25 10:00 05/13/25 10:01 Nitroglycerin (Ntrostat Sublingual) 0.4 mg Q5MINP PRN SL FOR CHEST PAIN 05/12/25 23:45 Morphine Sulfate 2 mg Q30M PRN IV FOR CHEST PAIN 05/12/25 23:45 05/13/25 17:22 Nicotine (Nicoderm 21MG/ 24HR) 1 patch DAILY TD 05/13/25 12:45 05/13/25 13:35 Review of Systems Constitutional: denies: chills, diaphoresis, fatigue, fever, malaise, sweats, weakness, others EENTM: denies: blurred vision, double vision, ear bleeding, ear discharge, ear drainage, ear pain, ear ringing, eye pain, eye redness, hearing loss, mouth pain, mouth swelling, nasal discharge, nose bleeding, nose congestion, nose pain, photophobia, tearing, throat pain, throat swelling, voice changes, others Respiratory: reports: shortness of breath; denies: cough, hemoptysis, orthopnea, SOB at rest, SOB with excertion, stridor, wheezing, others 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: reports: chest pain; denies: dizzy spells, diaphoresis, Dyspnea on exertion, edema, irregular heart beat, left arm pain, lightheadedness, palpitations, PND, syncope, others Gastrointestinal: reports: nausea; denies: abdomen distended, abdominal pain, blood streaked bowels, constipated, diarrhea, dysphagia, difficulty swallowing, hematemesis, melena, poor appetite, poor fluid intake, rectal bleeding, rectal pain, vomiting, others Genitourinary: denies: abnormal vagina bleeding, burning, dyspareunia, dysuria, flank pain, frequency, hematuria, incontinence, pain, , vagina discharge, urgency, others Neurological: denies: dizziness, fainting, headache, left sided numbness, left sided weakness, numbness, paresthesia, pre-existing deficit, right sided numbness, right sided weakness, seizure, speech problems, tingling, tremors, weakness, others Musculoskeletal: denies: back pain, gout, joint pain, joint swelling, muscle pain, muscle stiffness, neck pain, others Integumetry: denies: bruises, change in color, change in hair/nails, dryness, laceration, lesions, lumps, rash, wounds, others Allergic/Immunocompromised: denies: Difficulty Healing, Frequent Infections, Hives, Itching, others Hematologic/Lymphatic: denies: anemia, blood clots, easy bleeding, easy bruising, swollen glands, others Endocrine: denies: excessive hunger, excessive sweating, excessive thirst, excessive urination, flushing, intolerance to cold, intolerance to heat, unexplained weight gain, unexplained weight loss, others Psychiatric: denies: anxiety, bipolar disorder, depression, hopeless, panic disorder, schizophrenia, sleepless, suicidal, others All Other Systems: Reviewed and Negative Vital Signs Vital Signs Date Time Temp Pulse Resp B/P (MAP) Pulse Ox O2 Delivery O2 Flow Rate FiO2 05/13/25 20:00 65 05/13/25 20:00 Room Air* 0 21 05/13/25 17:52 18 123/67 05/13/25 17:00 98.4 95 98.4 Physical Exam GENERAL: Alert and oriented x 3. No acute distress. EYES: PERRL, EOMI. Anicteric. HENT: Moist mucous membranes. LUNGS: Clear to auscultation bilaterally. CARDIOVASCULAR: Regular rate and rhythm. ABDOMEN: Soft, nontender and nondistended. EXTREMITIES: No edema. NEUROLOGIC: No focal neurological deficits. SKIN: Warm, dry. Labs/Diagnostic Data Labs Test 05/13/25 17:01 05/13/25 05:12 05/12/25 12:24 Range/Units D-Dimer, Quantitative 0.52 H 0.0-0.49 mg/L FEU White Blood Count 5.8 4.4-10.8 10^3/uL Red Blood Count 4.98 4.0-5.20 10^6/uL Hemoglobin 15.6 12.2-16.2 g/dL Hematocrit 45.5 36.0-46.0 % Mean Corpuscular Volume 91.4 80.0-100.0 fL Mean Corpuscular Hemoglobin 31.3 28.0-32.0 pg Mean Corpuscular Hemoglobin Concent 34.2 32.0-36.0 g/dL Red Cell Distribution Width 13.1 11.8-14.3 % Platelet Count 164 140-450 10^3/uL Mean Platelet Volume 8.6 6.9-10.8 fL Neutrophils (%) (Auto) 49.0 37.0-80.0 % Lymphocytes (%) (Auto) 35.7 10.0-50.0 % Monocytes (%) (Auto) 9.5 0.0-12.0 % Eosinophils (%) (Auto) 4.8 0.0-7.0 % Basophils (%) (Auto) 1.0 0.0-2.0 % Neutrophils # (Auto) 2.8 1.6-8.6 10 ^3/uL Lymphocytes # (Auto) 2.1 0.4-5.4 10 ^3/uL Monocytes # (Auto) 0.5 0-1.3 10 ^3/uL Eosinophils # (Auto) 0.3 0-0.8 10 ^3/uL Basophils # (Auto) 0.1 0-0.2 10 ^3/uL Nucleated Red Blood Cells 0.2 % Sodium Level 142 136-145 mmol/L Potassium Level 4.0 3.5-5.1 mmol/L Chloride Level 107 98-107 mmol/L Carbon Dioxide Level 26 20-31 mmol/L Anion Gap 9 5-15 Blood Urea Nitrogen 14 9-23 mg/dL Creatinine 1.21 H 0.550-1.02 mg/dL Glomerular Filtration Rate Calc 50 >90 mL/min BUN/Creatinine Ratio 11.6 10.0-20.0 Serum Glucose 94 74-106 mg/dL Calcium Level 9.1 8.7-10.4 mg/dL Total Bilirubin 0.5 0.2-1.0 mg/dL Aspartate Amino Transferase (AST) 14 13-40 U/L Alanine Aminotransferase (ALT) < 9 7-40 U/L Alkaline Phosphatase 105 46-116 U/L Total Protein 6.4 5.7-8.2 g/dL Albumin 4.0 3.2-4.8 g/dL Troponin I High Sensitivity 22 </=34 ng/L Assessment Chest pain. Shortness of breath. Generalized weakness. Plan/Recommendation I agree with your ongoing assessment and care of plan. Telemetry reviewed. Aspirin, Lipitor, Plavix. Losartan. Morphine and Tylenol for pain management. Nitro SL. Additional plan as per the hospital course. A total of 45 minutes was spent reviewing the patient record, examining the patient, making a diagnostic and therapeutic plan, discussing this plan with medical personnel, following up on diagnostic studies and following the patient for clinical stability excluding any and all procedures. At least 50% of this time was spent in direct, [id number] contact. Plan discussed with: Patient BIBIANA ELDER MD May 13, 2025 23:11
[2025-05-14] MEDS ORDERED: HYDROcodone-ACET 5/325MG TAB PO PRN (03:30)
[2025-05-14 06:48] LABS: INR 1.0 (0.9-1.15); Partial Thromboplastin Time 26.9 SEC (24.5-34.5); Prothrombin Time 10.6 sec (9.3-11.8)
[2025-05-14 06:52] LABS: Chloride 105 mmol/L (98-107); Potassium 4.1 mmol/L (3.5-5.1); Sodium 141 mmol/L (136-145)
[2025-05-14 06:53] LABS: Anion Gap 7 (5-15); Carbon Dioxide 29 mmol/L (20-31)
[2025-05-14 06:54] LABS: Calcium 9.2 mg/dL (8.7-10.4)
[2025-05-14 06:58] LABS: BUN/Creatinine Ratio 14.9 (10.0-20.0); Blood Urea Nitrogen 14 mg/dL (9-23); Glucose 86 mg/dL (74-106)
[2025-05-14] MEDS ORDERED: IOHEXOL 350 MG/ML 100ML IJ ONE (08:07)
[2025-05-14] MEDS: ENOXAPARIN SOD 40 MG/0.4 ML SYRINGE SC SCH (09:15)
[2025-05-14] MEDS: MORPHINE SULFATE INJ 2 MG/ml SYRG IV ONE (12:07)
--- NOTE | 2025-05-14 12:40 | DVHSR ---
APPROVED REPORT EXAM: Two-dimensional and M-mode echocardiogram with Doppler and color Doppler. Blood Pressure: 121/71 mmHg INDICATION Chest Pain CHF? RISK FACTORS Obesity: Height: 5'5", Weight: 254 DIMENSIONS LVDd (3.8-5.7cm)LA (2D)4.7 (1.9-4.0cm)Aortic Root3.3 (2.0-3.7cm) LVDs (2.5-4.0cm)LA (MM) (1.9-4.0cm)Aortic Cusp Exc1.9 (1.5-2.0cm) EF (%) 50.0 (55-70%)Rt. Atrium4.5 (1.9-4.0cm)Asc. Aorta cm IVSd (0.7-1.1cm)RV (D)3.9 (1.8-2.4cm) Mitral Valve MitralMitral Stenosis E wave1.02m/sMV Mean GR.mmHg A wave1.02m/sMV Peak GR.mmHg E/A ratio1.02D MVAcm2 DECEL [id number] 1/2 Timems Aortic Valve Aortic ValveAortic Stenosis V11.13m/Burton Mean GR.4mmHg V21.35m/Burton Peak GR.7mmHg LVOT Diameter1.9 (1.8-2.4cm)Doppler AVA2.37cm2 Tricuspid Valve TR Velocity2.65m/s [id number] Other Information Technically limited study due to body habitus. Conclusion lvef 50% restrictive LV filling mild to moderate mitral regurg normal rv function left atrium enlarged
--- NOTE | 2025-05-14 13:43 | DVH ---
INDICATION: Shortness of breath with elevated D-dimer. TECHNIQUE: Multidetector CTA of the chest was performed of the chest with 100 cc of intravenous contr ast. PULMONARY ANGIOGRAPHY PROTOCOL was utilized using a bolus-tracking technique centered on the emily n pulmonary artery. Axial, coronal and sagittal multiplanar and MIP reformats were performed. Radiation Dose Information: CT Dose: CTDI volume is 27.63 mGy. Dose-length product is 961.57 mGy*cm Omnipaque 350: 100 mL The dose indicators for CT are the volume Computed Tomography (CT) Dose Index (CTDIvol) and the Dose Length Product (DLP), and are measured in units of mGy and mGy-cm, respectively. These indicators are not patient dose, but values generated from the CT scanner acquisition factors. The report includes radiation exposure data for exposures received during this examination. Findings: Pulmonary artery: Normal caliber of the pulmonary artery. No large central or large segmental pulmo nary embolism. Inadequate opacification of the pulmonary artery to detect pulmonary emboli. Minimal o pacification required is 266 HU. Opacification achieved 159 HU. Lower neck: Normal thyroid. Lungs: No focal consolidation, pulmonary mass, or suspicious pulmonary nodule. Heart/Vascular Structures: Normal heart size. Normal caliber and enhancement of the aorta. Lymph Nodes: No adenopathy Pleura: No pleural effusion or significant pneumothorax. Musculoskeletal: No acute osseous abnormality. Upper abdomen: Limited portions of the upper abdomen are unremarkable. IMPRESSION: 1. Inadequate opacification achieved of the pulmonary artery to exclude pulmonary emboli. There were however no saddle emboli or filling defects obstructing the right or left main pulmonary arteries. 2. Scattered patchy bilateral airspace disease. HS:Y
--- NOTE | 2025-05-14 15:11 | DVHPN2 ---
Subjective Continues to complain of shortness of breath and chest pain Reviewed: Care Plan, H&P, Labs, Medications, Previous Orders, Radiology, Other Changes from previous H/P or p: No Changes Objective Vitals Vital Signs Date Time Temp Pulse Resp B/P (MAP) Pulse Ox O2 Delivery O2 Flow Rate FiO2 05/14/25 13:00 97.5 55 18 116/71 (86) 96 97.5 05/14/25 07:30 Room Air* 0 21 Intake/Output Intake and Output 05/14/25 07:00 Intake Total 550 ml Balance 550 ml Intake Oral 550 ml # Voids 3 General Appearance: Alert, Oriented X3, Cooperative, No acute distress, Other (Morbidly obese) HEENT: Atraumatic, Other (Facial droop) Lungs: Clear to auscultation, Normal air movement Chest/Breasts: Other (Loop recorder in place) 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: Regular rate, Normal S1, Normal S2 Abdomen: Normal bowel sounds, Soft, No tenderness Neuro: Other (Dysarthria with facial droop) Psych/Mental Status: Mental status NL, Mood NL Medications Current Medications Medications Dose Ordered Sig/Shelly Route Start Time Stop Time Status Last Admin Dose Admin Aspirin 81 mg DAILY PO 05/13/25 10:00 05/14/25 09:16 81 MG Atorvastatin Calcium 40 mg HS PO 05/12/25 22:00 05/13/25 21:09 40 MG Losartan Potassium 50 mg DAILY PO 05/13/25 10:00 05/14/25 09:16 50 MG Clopidogrel Bisulfate 75 mg DAILY PO 05/13/25 10:00 05/14/25 09:17 75 MG Duloxetine HCl 30 mg BID PO 05/12/25 22:00 05/14/25 09:17 30 MG Sodium Chloride 10 ml Q8HR IV 05/12/25 22:00 05/14/25 05:47 10 ML Ondansetron HCl 4 mg Q4HP PRN IV 05/12/25 20:45 Docusate Sodium 100 mg BIDPRN PRN PO 05/12/25 20:45 Acetaminophen 650 mg Q6HP PRN PO 05/12/25 20:45 Nitroglycerin 0.4 mg Q5MINP PRN SL 05/12/25 23:45 Morphine Sulfate 2 mg Q30M PRN IV 05/12/25 23:45 05/13/25 17:22 2 MG Nicotine 1 patch DAILY TD 05/13/25 12:45 05/14/25 09:17 1 PATCH Enoxaparin Sodium 40 mg DAILY SC 05/14/25 10:00 05/14/25 09:15 40 MG Acetaminophen/ Hydrocodone Bitart 1 tab Q6HP PRN PO 05/14/25 09:45 Laboratory Results Laboratory Tests 05/13/25 05:12 05/14/25 05:19 Chemistry Test 05/14/25 05:19 Calcium Level 9.2 mg/dL (8.7-10.4) Coagulation Test 05/13/25 17:01 05/14/25 05:19 D-Dimer, Quantitative 0.52 mg/L FEU (0.0-0.49) H Prothrombin Time 10.6 sec (9.3-11.8) Prothrombin Time INR 1.00 (0.9-1.15) Activated Partial Thromboplast Time 26.9 SEC (24.5-34.5) Cardiac Markers Test 05/14/25 05:19 B-Type Natriuretic Peptide 163.09 pg/mL (0-100) Labs and/or images reviewed: Labs reviewed by me, Image(s) reviewed by me Assessment/Plan Assessment/Plan A 64 year old female patient; with multiple comorbidities; who presented to the emergency department with chest pain and shortness of breath. Acute chest pain; to rule out ACS Shortness of breath with elevated D-dimer; PE ruled out History of stroke with residual dysarthria and facial droop History of arrhythmia; loop recorder in place Hypertensive heart disease Tobacco use disorder Morbid obesity Continue aspirin, statin, and clopidogrel Reviewed lab work and imaging studies along with a EKGs Cardiology is following; reviewed echocardiogram results Continue antihypertensive medications and adjust according to blood pressure readings Counseled the patient on the importance of adopting healthy lifestyle with diet and exercise in order to lose weight Counseled on tobacco use cessation Telemetry Late Entry. This medical document was created using an electronic medical record system with computerized dictation system. Although this document has been carefully reviewed, there might still be some phonetic and typographical errors. These areas are purely typographical due to imperfections of the software programs, and do not reflect any compromise in the patient's medical care. Plan discussed with: Patient, Other My Orders Orders - LUIS VELÁZQUEZ MD Procedure Category Date Status Time * Cardiology Consult CONS 05/13/25 Transmitted 15:46 Chest Portable XY 05/13/25 Resulted 15:[address] 05/14/25 Resulted Contrast 03:49 Enoxaparin Sodium PHA 05/14/25 In Process (Lovenox) 10:00 Echo 2d Mode Cardiac US 05/14/25 Resulted DOP 03:54 Hydrocodone-Acet PHA 05/14/25 In Process 10/325mg Tab ([place] 09:45 Date of Service: May 14, 2025 Billing Provider: LUIS VELÁZQUEZ MD Common Visit Codes: [id number] INP/OBS CARE(HIGH) LUIS VELÁZQUEZ MD May 14, 2025 15:11
[2025-05-14] MEDS: HYDROcodone-ACET 10/325MG TAB PO PRN (16:17)
[2025-05-14] MEDS: FUROSEMIDE 40 MG/4 ML VIAL IV ONE (22:32)
--- NOTE | 2025-05-14 23:35 | DVHPN2 ---
Progress Note - Dictate Date Seen: May 14, 2025 Medical Necessity Reason Pt with a Central, PICC or Fol: No Subjective Patient was seen and evaluated in follow up. Patient is complaining of chest pain. CMP is WNL. CTA chest shows inadequate opacification achieved of the pulmonary artery to exclude pulmonary emboli. There were however no saddle emboli or filling defects obstructing the right or left main pulmonary arteries. Scattered patchy bilateral airspace disease. Echocardiogram is pending. Telemetry reviewed. vital signs Vital Sign Date Time Temp Pulse Resp B/P (MAP) Pulse Ox O2 Delivery O2 Flow Rate FiO2 05/14/25 13:00 97.5 55 18 116/71 (86) 96 97.5 05/14/25 07:30 Room Air* 0 21 Total Intake and Output 05/13/25 05/13/25 05/14/25 15:00 23:00 07:00 Intake Total 0 ml 550 ml Balance 0 ml 550 ml medications Current Medications Medications Dose Ordered Sig/Shelly Route Start Time Stop Time Status Last Admin Dose Admin Aspirin 81 mg DAILY PO 05/13/25 10:00 05/14/25 09:16 81 MG Atorvastatin Calcium 40 mg HS PO 05/12/25 22:00 05/13/25 21:09 40 MG Losartan Potassium 50 mg DAILY PO 05/13/25 10:00 05/14/25 09:16 50 MG Clopidogrel Bisulfate 75 mg DAILY PO 05/13/25 10:00 05/14/25 09:17 75 MG Duloxetine HCl 30 mg BID PO 05/12/25 22:00 05/14/25 09:17 30 MG Sodium Chloride 10 ml Q8HR IV 05/12/25 22:00 05/14/25 05:47 10 ML Ondansetron HCl 4 mg Q4HP PRN IV 05/12/25 20:45 Docusate Sodium 100 mg BIDPRN PRN PO 05/12/25 20:45 Acetaminophen 650 mg Q6HP PRN PO 05/12/25 20:45 Nitroglycerin 0.4 mg Q5MINP PRN SL 05/12/25 23:45 Morphine Sulfate 2 mg Q30M PRN IV 05/12/25 23:45 05/13/25 17:22 2 MG Nicotine 1 patch DAILY TD 05/13/25 12:45 05/14/25 09:17 1 PATCH Enoxaparin Sodium 40 mg DAILY SC 05/14/25 10:00 05/14/25 09:15 40 MG Acetaminophen/ Hydrocodone Bitart 1 tab Q6HP PRN PO 05/14/25 09:45 objective GENERAL: Alert and oriented x 3. No acute distress. EYES: PERRL, EOMI. Anicteric. HENT: Moist mucous membranes. LUNGS: Clear to auscultation bilaterally. CARDIOVASCULAR: Regular rate and rhythm. ABDOMEN: Soft, nontender and nondistended. EXTREMITIES: No edema. NEUROLOGIC: No focal neurological deficits. SKIN: Warm, dry. laboratory and microbiology Laboratory Tests 05/14/25 05:19 05/13/25 05:12 Test 05/14/25 05:19 Range/Units Serum Glucose 86 74-106 mg/dL Problem List Chest pain. Shortness of breath. Generalized weakness. Assessment/Plan Continued all current supportive medical care. Echocardiogram. Morphine and Seltzer for pain management. Aspirin, Lipitor, Plavix. DVT prophylactics. Diuretics with Lasix. Losartan. Nitro SL. Additional plan as per the hospital course. Plan discussed with: Patient BIBIANA ELDER MD May 14, 2025 13:34
[2025-05-15] VITALS (8 sets, daily range): BP systolic 94–149; BP diastolic 50–96; PULSE 54–75; RESP 16–20; TEMP 96.8–97.8; O2SAT 91–95
--- NOTE | 2025-05-15 08:03 | ECG ---
[facility] Test Date: 2025-05-14 Test Time: 03:51:30 Pat Name: MARCO CALLE Department: Room: [facility]1T A Gender: F Company Secretary: ALEX : 1960 Requested By: JAVI FAULKNER Order Number: [id number] Reading MD: Guillermo Anrdew Measurements Intervals [place] Rate: 60 P: 72 UT: 134 QRS: 50 QRSD: 100 T: 26 QT: 464 QTc: 464 Interpretive Statements Sinus rhythm Electronically Signed On 05-15-2025 21:42:31 PDT by Guillermo Andrew Please click the below link to view image of tracing.
[2025-05-15] MEDS: FUROSEMIDE 40 MG/4 ML VIAL IV SCH (10:00)
[2025-05-15 10:33] LABS: Chloride 103 mmol/L (98-107); Potassium 3.9 mmol/L (3.5-5.1); Sodium 141 mmol/L (136-145)
[2025-05-15 10:34] LABS: Anion Gap 9 (5-15); Calcium 8.9 mg/dL (8.7-10.4); Carbon Dioxide 29 mmol/L (20-31)
[2025-05-15 10:39] LABS: BUN/Creatinine Ratio 16.8 (10.0-20.0); Blood Urea Nitrogen 17 mg/dL (9-23)
[2025-05-15 10:54] LABS: Glucose 120 mg/dL (74-106)
[2025-05-15] MEDS: BACLOFEN 10 MG TAB PO PRN (17:00)
[2025-05-15] MEDS: IBUPROFEN 600 MG TAB PO PRN (17:01)
[2025-05-15] MEDS: PROCHLORPERAZINE EDISYLATE 5 MG/ML 2ML VIAL IV ONE (17:01)
--- NOTE | 2025-05-15 18:21 | DVHPN2 ---
Subjective Complains of no chest pain today, instead today she is complaining of headache. Also complaining of backache and other nonspecific pains. Reviewed: Care Plan, H&P, Labs, Medications, Previous Orders, Radiology, Other Changes from previous H/P or p: No Changes General: Per HPI Objective Vitals Vital Signs Date Time Temp Pulse Resp B/P (MAP) Pulse Ox O2 Delivery O2 Flow Rate FiO2 05/15/25 17:00 97.3 75 19 149/96 (113) 93 97.3 05/15/25 07:30 Room Air* 0 21 Intake/Output Intake and Output 05/15/25 07:00 Intake Total 2340 ml Balance 2340 ml Intake Oral 2340 ml # Voids 11 Exam GEN: Healthy appearing, well-developed, NAD. Obese HEENT: NC/AT; MMM. CV: RRR, no m/r/g. LUNGS: CTAB, no w/r/c. ABD: Soft, NT/ND, NBS, no masses or organomegaly. EXT: skin Warm, well perfused. no rashes. No clubbing, cyanosis, or edema. NEURO: Ambulating with no limitations. No focal deficits. General Appearance: Alert, Oriented X3, Cooperative, No acute distress, Other (Morbidly obese) HEENT: Atraumatic, Other (Facial droop) Lungs: Clear to auscultation, Normal air movement Chest/Breasts: Other (Loop recorder in place) 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: Regular rate, Normal S1, Normal S2 Abdomen: Normal bowel sounds, Soft, No tenderness Neuro: Other (Dysarthria with facial droop) Psych/Mental Status: Mental status NL, Mood NL Medications Current Medications Medications Dose Ordered Sig/Shelly Route Start Time Stop Time Status Last Admin Dose Admin Aspirin 81 mg DAILY PO 05/13/25 10:00 05/15/25 08:19 81 MG Atorvastatin Calcium 40 mg HS PO 05/12/25 22:00 05/14/25 21:44 40 MG Losartan Potassium 50 mg DAILY PO 05/13/25 10:00 05/14/25 09:16 50 MG Clopidogrel Bisulfate 75 mg DAILY PO 05/13/25 10:00 05/15/25 08:19 75 MG Duloxetine HCl 30 mg BID PO 05/12/25 22:00 05/15/25 08:19 30 MG Sodium Chloride 10 ml Q8HR IV 05/12/25 22:00 05/15/25 16:02 10 ML Ondansetron HCl 4 mg Q4HP PRN IV 05/12/25 20:45 Docusate Sodium 100 mg BIDPRN PRN PO 05/12/25 20:45 Acetaminophen 650 mg Q6HP PRN PO 05/12/25 20:45 Nitroglycerin 0.4 mg Q5MINP PRN SL 05/12/25 23:45 Morphine Sulfate 2 mg Q30M PRN IV 05/12/25 23:45 05/13/25 17:22 2 MG Nicotine 1 patch DAILY TD 05/13/25 12:45 05/15/25 08:20 1 PATCH Enoxaparin Sodium 40 mg DAILY SC 05/14/25 10:00 05/15/25 08:21 40 MG Acetaminophen/ Hydrocodone Bitart 1 tab Q6HP PRN PO 05/14/25 09:45 05/15/25 14:22 1 TAB Furosemide 40 mg DAILY IV 05/15/25 10:00 Baclofen 10 mg Q8HP PRN PO 05/15/25 16:00 05/15/25 17:00 10 MG Ibuprofen 600 mg Q6HP PRN PO 05/15/25 16:00 05/15/25 17:01 600 MG Laboratory Results Laboratory Tests 05/13/25 05:12 05/15/25 09:45 Chemistry Test 05/15/25 09:45 Calcium Level 8.9 mg/dL (8.7-10.4) Labs and/or images reviewed: Labs reviewed by me, Image(s) reviewed by me Assessment/Plan Assessment/Plan A 64 year old female patient; with multiple comorbidities; who presented to the emergency department with chest pain and shortness of breath. 05/15: Patient echo without concerns, no WMA, there is some concern with resistant LV, LAE,. Patient is not hypotensive. Pain is likely musculoskeletal as she is also complaining of back pain. Today we will start baclofen 10 b.i.d.. She has headache we will use Tylenol ibuprofen, given today 1 time IV Compazine. We will reassess tomorrow. She has multiple complaints of why she will not be able to go home today (no keys, family not home, no ride). We will work with social to figure out a safe discharge plan. Also we will get PT today, per PT patient need front wheel walker and home health. Severe obesity BMI 42, patient needs aggressive weight loss control with PCP. Acute chest pain; ACS ruled out, musculoskeletal pain likely Shortness of breath with elevated D-dimer; PE ruled out History of stroke with residual dysarthria and facial droop History of arrhythmia; loop recorder in place Hypertensive heart disease Tobacco use disorder Morbid obesity PRAVIN possible Continue aspirin, statin, and clopidogrel Continue antihypertensive medications and adjust according to blood pressure readings Counseled the patient on the importance of adopting healthy lifestyle with diet and exercise in order to lose weight Counseled on tobacco use cessation Telemetry Plan discussed with: Patient My Orders Orders - LOUISE ISRAEL MD Procedure Category Date Status Time * [employer] CONS 05/15/25 Transmitted Consult Baclofen Tablet PHA 05/15/25 In Process (Liorisal Tablet) 16:00 Ibuprofen Tablet PHA 05/15/25 In Process (Motrin Tablet) 16:00 Date of Service: May 15, 2025 Billing Provider: LOUISE ISRAEL MD Common Visit Codes: [id number] INP/OBS CARE(HIGH) LOUISE ISRAEL MD May 15, 2025 18:21
--- NOTE | 2025-05-15 22:39 | DVHPN2 ---
Progress Note - Dictate Date Seen: May 15, 2025 Medical Necessity Reason Pt with a Central, PICC or Fol: No Subjective Patient was seen and evaluated in follow up. Patient is complaining of chest discomfort. BS are WNL. Echocardiogram showed an EF of 50%. Telemetry reviewed. vital signs Vital Sign Date Time Temp Pulse Resp B/P (MAP) Pulse Ox O2 Delivery O2 Flow Rate FiO2 05/15/25 09:00 97.0 65 16 104/63 (77) 91 97.0 05/15/25 07:30 Room Air* 0 21 Total Intake and Output 05/14/25 05/14/25 05/15/25 15:00 23:00 07:00 Intake Total 840 ml 1500 ml Balance 840 ml 1500 ml medications Current Medications Medications Dose Ordered Sig/Shelly Route Start Time Stop Time Status Last Admin Dose Admin Aspirin 81 mg DAILY PO 05/13/25 10:00 05/15/25 08:19 81 MG Atorvastatin Calcium 40 mg HS PO 05/12/25 22:00 05/14/25 21:44 40 MG Losartan Potassium 50 mg DAILY PO 05/13/25 10:00 05/14/25 09:16 50 MG Clopidogrel Bisulfate 75 mg DAILY PO 05/13/25 10:00 05/15/25 08:19 75 MG Duloxetine HCl 30 mg BID PO 05/12/25 22:00 05/15/25 08:19 30 MG Sodium Chloride 10 ml Q8HR IV 05/12/25 22:00 05/15/25 05:23 10 ML Ondansetron HCl 4 mg Q4HP PRN IV 05/12/25 20:45 Docusate Sodium 100 mg BIDPRN PRN PO 05/12/25 20:45 Acetaminophen 650 mg Q6HP PRN PO 05/12/25 20:45 Nitroglycerin 0.4 mg Q5MINP PRN SL 05/12/25 23:45 Morphine Sulfate 2 mg Q30M PRN IV 05/12/25 23:45 05/13/25 17:22 2 MG Nicotine 1 patch DAILY TD 05/13/25 12:45 05/15/25 08:20 1 PATCH Enoxaparin Sodium 40 mg DAILY SC 05/14/25 10:00 05/15/25 08:21 40 MG Acetaminophen/ Hydrocodone Bitart 1 tab Q6HP PRN PO 05/14/25 09:45 8/4/25 08:19 1 TAB Furosemide 40 mg DAILY IV 05/15/25 10:00 objective GENERAL: Alert and oriented x 3. No acute distress. EYES: PERRL, EOMI. Anicteric. HENT: Moist mucous membranes. LUNGS: Clear to auscultation bilaterally. CARDIOVASCULAR: Regular rate and rhythm. ABDOMEN: Soft, nontender and nondistended. EXTREMITIES: No edema. NEUROLOGIC: No focal neurological deficits. SKIN: Warm, dry. laboratory and microbiology Laboratory Tests 05/15/25 09:45 05/13/25 05:12 Test 05/15/25 09:45 Range/Units Serum Glucose 120 H 74-106 mg/dL Problem List Chest pain. Shortness of breath. Generalized weakness. Assessment/Plan Continued all current supportive medical care. [place] for pain management. Aspirin, Lipitor, Plavix. DVT prophylactics. Diuretics with Lasix. Losartan. Nitro SL. Additional plan as per the hospital course. Plan discussed with: Patient BIBIANA ELDER MD May 15, 2025 13:31
[2025-05-16] VITALS (9 sets, daily range): BP systolic 94–148; BP diastolic 58–81; PULSE 57–68; RESP 16–18; TEMP 96.4–98.1; O2SAT 88–98
--- NOTE | 2025-05-16 07:32 | ECG ---
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
[2025-05-16] MEDS ORDERED: BACL5TAB2 PO (09:59)
[2025-05-16] MEDS ORDERED: DULO60CA41 PO ×2 (09:59→10:02)
--- NOTE | 2025-05-16 10:03 | DVHDS2 ---
Discharge Summary Date of Admission May 12, 2025 at 23:44 Date of Discharge: May 16, 2025 Admitting Diagnosis Chest pain Labs/Diagnostic Data: Laboratory Results Test 05/15/25 09:45 05/14/25 05:19 05/13/25 17:01 05/13/25 05:12 Sodium Level 141 mmol/L (136-145) Potassium Level 3.9 mmol/L (3.5-5.1) Chloride Level 103 mmol/L (98-107) Carbon Dioxide Level 29 mmol/L (20-31) Anion Gap 9 (5-15) Blood Urea Nitrogen 17 mg/dL (9-23) Creatinine 1.01 mg/dL (0.550-1.02) Glomerular Filtration Rate Calc 63 mL/min (>90) BUN/Creatinine Ratio 16.8 (10.0-20.0) Serum Glucose 120 mg/dL (74-106) Calcium Level 8.9 mg/dL (8.7-10.4) Prothrombin Time 10.6 sec (9.3-11.8) Prothrombin Time INR 1.00 (0.9-1.15) Activated Partial Thromboplast Time 26.9 SEC (24.5-34.5) B-Type Natriuretic Peptide 163.09 pg/mL (0-100) D-Dimer, Quantitative 0.52 mg/L FEU (0.0-0.49) White Blood Count 5.8 10^3/uL (4.4-10.8) Red Blood Count 4.98 10^6/uL (4.0-5.20) Hemoglobin 15.6 g/dL (12.2-16.2) Hematocrit 45.5 % (36.0-46.0) Mean Corpuscular Volume 91.4 fL (80.0-100.0) Mean Corpuscular Hemoglobin 31.3 pg (28.0-32.0) Mean Corpuscular Hemoglobin Concent 34.2 g/dL (32.0-36.0) Red Cell Distribution Width 13.1 % (11.8-14.3) Platelet Count 164 10^3/uL (140-450) Mean Platelet Volume 8.6 fL (6.9-10.8) Neutrophils (%) (Auto) 49.0 % (37.0-80.0) Lymphocytes (%) (Auto) 35.7 % (10.0-50.0) Monocytes (%) (Auto) 9.5 % (0.0-12.0) Eosinophils (%) (Auto) 4.8 % (0.0-7.0) Basophils (%) (Auto) 1.0 % (0.0-2.0) Neutrophils # (Auto) 2.8 10 ^3/uL (1.6-8.6) Lymphocytes # (Auto) 2.1 10 ^3/uL (0.4-5.4) Monocytes # (Auto) 0.5 10 ^3/uL (0-1.3) Eosinophils # (Auto) 0.3 10 ^3/uL (0-0.8) Basophils # (Auto) 0.1 10 ^3/uL (0-0.2) Nucleated Red Blood Cells 0.2 % Total Bilirubin 0.5 mg/dL (0.2-1.0) Aspartate Amino Transferase (AST) 14 U/L (13-40) Alanine Aminotransferase (ALT) < 9 U/L (7-40) Alkaline Phosphatase 105 U/L (46-116) Total Protein 6.4 g/dL (5.7-8.2) Albumin 4.0 g/dL (3.2-4.8) Test 05/12/25 12:24 Troponin I High Sensitivity 22 ng/L (</=34) Other Laboratory Tests 05/15/25 09:45 05/13/25 05:12 Brief Hx & Hospital Course: A 64 year old female patient; with multiple comorbidities; who presented to the emergency department with chest pain and shortness of breath. admit for ACS rule out. 05/15: Patient echo without concerns, no WMA, there is some concern with resistant LV, LAE,. Patient is not hypotensive. troponin negative, EKG without any concerning changes. Pain is likely musculoskeletal as she is also complaining of back pain. Today we will start baclofen 10 b.i.d.. She has headache we will use Tylenol ibuprofen, given today 1 time IV Compazine. We will reassess tomorrow. She has multiple complaints of why she will not be able to go home today (no keys, family not home, no ride). We will work with social to figure out a safe discharge plan. Also we will get PT today, per PT patient need front wheel walker and home health. Severe obesity BMI 42, patient needs aggressive weight loss control with PCP. 05/16: Social has good discharge plan for today daughter is available. Discharge as per plan below. Diagnosis: Acute chest pain; ACS ruled out, musculoskeletal pain likely Shortness of breath with elevated D-dimer; PE ruled out History of stroke with residual dysarthria and facial droop History of arrhythmia; loop recorder in place Hypertensive heart disease Tobacco use disorder Morbid obesity PRAVIN possible Discharge plan: -Take baclofen 5 up to 3 times daily as needed for back spasms - take duloxetine 60 mg daily for nerve pain - continue taking aspirin, Plavix, Lipitor. - Continue taking other home medications not mentioned above - follow up with PCP to review discharge Condition at Discharge: Fair Final Diagnosis/Problems List Acute chest pain; ACS ruled out, musculoskeletal pain likely Shortness of breath with elevated D-dimer; PE ruled out History of stroke with residual dysarthria and facial droop History of arrhythmia; loop recorder in place Hypertensive heart disease Tobacco use disorder Morbid obesity PRAVIN possible Discharge Disposition: Home with Health Services Discharge Instruct/Medications Diet: Cardiac 2g Na,low cholest Activity: No Restrictions, As Tolerated Follow Up/Referral: PCP Medications: See below Scheduled Aspirin (Aspirin Low Dose), 1 TAB PO DAILY, (Reported) Atorvastatin Calcium (Atorvastatin Calcium), 1 TAB PO DAILY, (Reported) Ciprofloxacin Hcl (Cipro), 250 MG PO BID Clopidogrel Bisulfate (Clopidogrel), 1 TAB PO DAILY, (Reported) Cyanocobalamin (B12), 1 TAB PO DAILY, (Reported) Duloxetine Hcl (Cymbalta), 1 CAP PO DAILY Ergocalciferol (Vitamin D), 1 CAP PO QWEEKLY, (Reported) Losartan Potassium (Losartan Potassium), 50 MG PO DAILY, (Reported) Scheduled PRN Baclofen (Baclofen), 5 MG PO TIDP PRN Hydrocodone-Acetaminophen (Hydrocodone Bitartrate/AC 5-325 mg), 1 TAB PO Q6HP PRN Discharge Statement: "Patient was advised to return to the ER or call 911 if any headaches, dizziness, shortness of breath, chest pain, abdominal pain, bleeding, fevers, or worsening of medical condition. Patient was counseled about treatment plan, medications, possible side effects, patientverbalized understanding. All questions were answered to the best of my ability. This discharge took greater then 30 minutes in planning, reviewing documentation, counseling the patient, and discussing with other team members." Date of Service: May 16, 2025 Billing Provider: LOUISE ISRAEL MD Common Visit Codes: [id number] DISCH DAY >30min LOUISE ISRAEL MD May 16, 2025 10:03
--- NOTE | 2025-05-16 22:50 | DVHPN2 ---
Progress Note - Dictate Date Seen: May 16, 2025 Medical Necessity Reason Pt with a Central, PICC or Fol: No Subjective Patient was seen and evaluated in follow up. Patient has no new complaints at this time. Patient denies any cardiac symptoms. Patient is cardiac stable for discharge. Telemetry reviewed. vital signs Vital Sign Date Time Temp Pulse Resp B/P (MAP) Pulse Ox O2 Delivery O2 Flow Rate FiO2 05/16/25 09:00 97.9 68 16 111/60 (77) 98 97.9 05/16/25 07:30 Room Air* 0 21 Total Intake and Output 05/15/25 05/15/25 05/16/25 15:00 23:00 07:00 Intake Total 850 ml 500 ml Output Total 700 ml Balance 150 ml 500 ml medications Current Medications Medications Dose Ordered Sig/Shelly Route Start Time Stop Time Status Last Admin Dose Admin Aspirin 81 mg DAILY PO 05/13/25 10:00 05/16/25 09:05 81 MG Atorvastatin Calcium 40 mg HS PO 05/12/25 22:00 05/15/25 21:06 40 MG Losartan Potassium 50 mg DAILY PO 05/13/25 10:00 05/14/25 09:16 50 MG Clopidogrel Bisulfate 75 mg DAILY PO 05/13/25 10:00 05/16/25 09:05 75 MG Duloxetine HCl 30 mg BID PO 05/12/25 22:00 05/16/25 09:06 30 MG Sodium Chloride 10 ml Q8HR IV 05/12/25 22:00 05/16/25 05:22 10 ML Ondansetron HCl 4 mg Q4HP PRN IV 05/12/25 20:45 Docusate Sodium 100 mg BIDPRN PRN PO 05/12/25 20:45 Acetaminophen 650 mg Q6HP PRN PO 05/12/25 20:45 Nitroglycerin 0.4 mg Q5MINP PRN SL 05/12/25 23:45 Morphine Sulfate 2 mg Q30M PRN IV 05/12/25 23:45 05/13/25 17:22 2 MG Nicotine 1 patch DAILY TD 05/13/25 12:45 05/16/25 09:07 1 PATCH Enoxaparin Sodium 40 mg DAILY SC 05/14/25 10:00 05/16/25 09:05 40 MG Acetaminophen/ Hydrocodone Bitart 1 tab Q6HP PRN PO 05/14/25 09:45 05/16/25 12:35 1 TAB Furosemide 40 mg DAILY IV 05/15/25 10:00 Baclofen 10 mg Q8HP PRN PO 05/15/25 16:00 05/16/25 06:25 10 MG Ibuprofen 600 mg Q6HP PRN PO 05/15/25 16:00 05/15/25 17:01 600 MG objective GENERAL: Alert and oriented x 3. No acute distress. EYES: PERRL, EOMI. Anicteric. HENT: Moist mucous membranes. LUNGS: Clear to auscultation bilaterally. CARDIOVASCULAR: Regular rate and rhythm. ABDOMEN: Soft, nontender and nondistended. EXTREMITIES: No edema. NEUROLOGIC: No focal neurological deficits. SKIN: Warm, dry. laboratory and microbiology Laboratory Tests 05/15/25 09:45 05/13/25 05:12 Test 05/15/25 09:45 Range/Units Serum Glucose 120 H 74-106 mg/dL Problem List Chest pain. Shortness of breath. Generalized weakness. Assessment/Plan Continued all current supportive medical care. [place] for pain management. Aspirin, Plavix. DVT prophylactics. Nitro SL. Additional plan as per the hospital course. Plan discussed with: Patient BIBIANA ELDER MD May 16, 2025 12:58
== END 2025-05-16 22:04 | disposition home health service (06) | DRG 206 ==
LOC: EDBD 11:04 → ER 11:04 → OVERFLOW 23:44 → TELE-WESTW 05-13 02:20
PROVIDERS: ADMIT Student in an Organized Health Care Education/Training Program; ATTEND Student in an Organized Health Care Education/Training Program
DX: M94.0 Chondrocostal junction syndrome [Tietze] (principal); Z68.41 Body mass index [BMI] 40.0-44.9, adult; I11.0 Hypertensive heart disease with heart failure; G47.33 Obstructive sleep apnea (adult) (pediatric); E66.01 Morbid (severe) obesity due to excess calories; F17.210 Nicotine dependence, cigarettes, uncomplicated; I50.9 Heart failure, unspecified; F32.A Depression, unspecified; Z88.0 Allergy status to penicillin; Z88.5 Allergy status to narcotic agent; I69.322 Dysarthria following cerebral infarction; I69.392 Facial weakness following cerebral infarction; Z88.6 Allergy status to analgesic agent; Z79.82 Long term (current) use of aspirin; Z79.899 Other long term (current) drug therapy; Z90.710 Acquired absence of both cervix and uterus; Z90.49 Acquired absence of other specified parts of digestive tract; Z80.8 Family history of malignant neoplasm of other organs or systems; Z83.3 Family history of diabetes mellitus
CPT/HCPCS: 36415; 71045; 71275; 80048; 80053; 83880; 84484; 85025; 85379; 85610; 85730; 93005; 93306; 96372; 96374; 97110; 97116; 97163; G0378

== ENCOUNTER 2025-08-22 21:30 | Inpatient (IN) | payer MEDICAID ==
[~2025-08-22] VITALS: Ht 165.1 cm; Wt 110.0 kg
[~2025-08-22 21:30] MED LIST changes: +BACL5TAB2 PO; -DULO1CAP5 PO; +DULO60CA41 PO
--- NOTE | 2025-08-22 22:50 | DVH ---
EXAM: CT CHEST WITHOUT CONTRAST History: thoracic back pain Comparison Study: XY CHEST XRAY 1 VIEW on DOS: 07/04/25, XY CHEST PORTABLE on DOS: 07/02/25, CT CT ANGIO CHEST CONTRAST on DOS: 05/14/25, XY CHEST PORTABLE on DOS: 05/13/25, XY CHEST PORTABLE on DOS: 09/05/24 TECHNIQUE: Multidetector CT of the chest was performed. Imaging was performed without IV contrast. Axial, coronal, and sagittal multiplanar reformats were obtained from the axial data set by the technologist. Radiation Dose : CTDI vol 28.56 mGy, DLP 1145.99 mGy*cm. Findings: Evaluation is degraded by respiratory motion. Lungs: There is scattered atelectasis/ scarring. Pleura: Unremarkable Heart/Great vessels: There is mild cardiomegaly. There is no pericardial effusion. There are mild atherosclerotic calcifications of the aorta. There are coronary artery calcifications versus stents. Mediastinum: Unremarkable. Soft tissues/Bones: Unremarkable Upper abdomen: Prior cholecystectomy. Small hiatal hernia. Impression: 1. No acute intrathoracic abnormality.
--- NOTE | 2025-08-22 23:21 | DVH ---
EXAM: CT THORACIC SPINE WO CONTRAS INDICATION: left rib pain post fall COMPARISON: CT CHEST WITHOUT CONTRAST on DOS: 08/22/25, CT CERVICAL WITHOUT CONTRAST on DOS: 01/28/24 TECHNIQUE: Multiple axial CT images of the thoracic spine were obtained using bone algorithm. Axial and coronal reformatting was done. Bone and soft tissue windows were reviewed. Radiation Dose Information: CT Dose: CTDI volume is 28.56 mGy. Dose-length product is 1145.99 mGy*cm FINDINGS: No acute displaced fracture. Minimal degenerative changes of the thoracic spine characterized by endplate osteophytosis and intervertebral disc space narrowing. No CT evidence of high-grade spinal canal or neural foraminal stenosis. The paraspinal soft tissues are unremarkable. IMPRESSION: 1. No acute displaced fracture. 2. Radiation optimization: All CT scans at this facility use at least one of these dose optimization techniques: automated exposure control mA and/or kV adjustment per patient size (includes targeted exams where dose is matched to clinical indication) or iterative reconstruction.
[2025-08-23] MEDS: HYDROcodone-ACET 5/325MG TAB PO ONE (00:15)
[2025-08-23] MEDS: ONDANSETRON ODT 4 MG TAB PO ONE (00:15)
--- NOTE | 2025-08-23 00:15 | ED.PDOC ---
Back pain HPI HPI Comments 64-year-old female presents to ER with complaints of fall injury x1 day. Patient presents via EMS reporting that she sustained a mechanical trip and fall at home and injured her mid back and left lower ribcage. She rates her current pain an 8/10 and denies head injury/LOC or any other reported injuries. Patient presents to ER alert and oriented x4, with frail-thin appearance, covered in feces and states she does not have proper help/care at home. Patient endorses no further symptoms/complaints Chief Complaint: Fall Injury Time Seen by MD: 21:54 Primary Care Provider: TOYA Reviewed Notes: Nurses Notes, Medications, Allergies Allergies: Coded Allergies: Codeine (Verified Allergy, Unknown, 03/10/22) Ketorolac (Verified Allergy, Unknown, 03/10/22) Penicillins (Verified Allergy, Unknown, 03/10/22) Tromethamine (Verified Allergy, Unknown, 03/10/22) Home Meds Active Scripts Duloxetine Hcl (Cymbalta) 60 Mg Cap, 1 CAP PO DAILY for 30 Days, #30 CAP 1 Refill Prov:LOUISE ISRAEL MD 05/16/25 Baclofen (Baclofen) 5 Mg Tab, 5 MG PO TIDP PRN for 7 Days, #20 TAB 0 Refills Prov:LOUISE ISRAEL MD 05/16/25 Hydrocodone-Acetaminophen (Hydrocodone Bitartrate/AC 5-325 mg) 1 Tab Tab, 1 TAB PO Q6HP PRN, #10 TAB Prov:CHANDRIKA SOL MD 09/08/24 Ciprofloxacin Hcl (Cipro) 250 Mg Tab, 250 MG PO BID for 5 Days, #10 TAB Prov:CHANDRIKA SOL MD 09/08/24 Reported Medications Ergocalciferol (Vitamin D) 50,000 Unit Cap, 1 CAP PO QWEEKLY for 28 Days, #4 07/28/24 Cyanocobalamin (B12) 1,000 Mcg Tab, 1 TAB PO DAILY for 14 Days, #14 07/28/24 Clopidogrel Bisulfate (CLOPIDOGREL) 75 Mg Tab, 1 TAB PO DAILY 04/03/24 Atorvastatin Calcium (ATORVASTATIN CALCIUM) 80 Mg Tab, 1 TAB PO DAILY 04/03/24 Aspirin (Aspirin Low Dose) 81 Mg Tab, 1 TAB PO DAILY 04/03/24 Losartan Potassium (Losartan Potassium) 50 Mg Tab, 50 MG PO DAILY for 30 Days, MG 01/29/22 Information Source: Patient Mode of Arrival: EMS Past Medical History PAST MEDICAL HISTORY: Cancer, CHF, CVA, Depression, HTN Surgical History: Cholecystectomy, Hysterectomy, 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 History Family History Family History: Unknown Social History Smoker: Cigarettes, Less Than 1 Pack/Day Alcohol: Denies ETOH Use Drugs: Denies Drug Use Lives In: Home Constitutional: denies: chills, diaphoresis, fatigue, fever, malaise, sweats, weakness, others EENTM: denies: blurred vision, double vision, ear bleeding, ear discharge, ear drainage, ear pain, ear ringing, eye pain, eye redness, hearing loss, mouth pain, mouth swelling, nasal discharge, nose bleeding, nose congestion, nose pain, photophobia, tearing, throat pain, throat swelling, voice changes, others Respiratory: denies: cough, hemoptysis, orthopnea, SOB at rest, shortness of breath, SOB with excertion, stridor, wheezing, others 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: denies: chest pain, dizzy spells, diaphoresis, Dyspnea on exertion, edema, irregular heart beat, left arm pain, lightheadedness, palpitations, PND, syncope, others Gastrointestinal: denies: abdomen distended, abdominal pain, blood streaked bowels, constipated, diarrhea, dysphagia, difficulty swallowing, hematemesis, melena, nausea, poor appetite, poor fluid intake, rectal bleeding, rectal pain, vomiting, others Genitourinary: denies: abnormal vagina bleeding, burning, dyspareunia, dysuria, flank pain, frequency, hematuria, incontinence, pain, , vagina discharge, urgency, others Neurological: denies: dizziness, fainting, headache, left sided numbness, left sided weakness, numbness, paresthesia, pre-existing deficit, right sided numbness, right sided weakness, seizure, speech problems, tingling, tremors, weakness, others Musculoskeletal: reports: others (As stated in HPI) Integumetry: denies: bruises, change in color, change in hair/nails, dryness, laceration, lesions, lumps, rash, wounds, others Allergic/Immunocompromised: denies: Difficulty Healing, Frequent Infections, Hives, Itching, others Hematologic/Lymphatic: denies: anemia, blood clots, easy bleeding, easy bruising, swollen glands, others Endocrine: denies: excessive hunger, excessive sweating, excessive thirst, excessive urination, flushing, intolerance to cold, intolerance to heat, unexplained weight gain, unexplained weight loss, others Psychiatric: denies: anxiety, bipolar disorder, depression, hopeless, panic disorder, schizophrenia, sleepless, suicidal, others Physical Exam General Appearance: Thin, Other (Patient covered in feces) HEENT: Normal ENT Inspection, PERRL/EOMI, Pharynx Normal, TMs Normal Neck: Full Range of Motion, Non-Tender, Normal Respiratory: Lungs Clear, No Accessory Muscle Use, No Respiratory Distress, Normal Breath Sounds, Other (TTP to left lower ribcage noted) 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: No Murmur, No Gallop, Regular Rate/Rhythm Breast Exam: Deferred Gastrointestinal: Non Tender, No Pulsatile Mass, Soft Genitalia: Deferred Pelvic: Deferred Rectal: Deferred Extremities: Normal capillary refill, Normal range of motion Musculoskeletal : Extremity Location: Back (TTP to midthoracic spine noted. Gait slowed with use of assistance) Neurologic: Alert, sole painter II-XII nml as Tested, No Motor Deficits, Normal Affect, Normal Mood, No Sensory Deficits Cerebellar Function: Normal Reflexes: Normal Skin: Dry, Warm Peripheral Pulses: 2+ carotid (R), 2+ carotid (L), 2+ femoral (R), 2+ femoral (L), 2+ dorsalis pedis (R), 2+ dorsalis pedis (L), 2+ Radial (R), 2+ Radial (L), 2+ Brachial (R), 2+ Brachial (L) Lymphatic: No Adenopathy Was a procedure done? Was a procedure done?: No Sedation Sedation?: No Back Pain Differential Dx Differential Diagnosis: AAA, Fracture, Other (Closed head injury) X-Ray, Labs, Meds, VS Vital Signs Date Time Temp Pulse Resp B/P (MAP) Pulse Ox O2 Delivery O2 Flow Rate FiO2 08/22/25 21:40 98.5 100 18 106/79 97 98.5 Lab Test 08/23/25 00:25 Range/Units White Blood Count 11.8 H 4.4-10.8 10^3/uL Red Blood Count 4.84 4.0-5.20 10^6/uL Hemoglobin 15.1 12.2-16.2 g/dL Hematocrit 43.6 36.0-46.0 % Mean Corpuscular Volume 90.1 80.0-100.0 fL Mean Corpuscular Hemoglobin 31.3 28.0-32.0 pg Mean Corpuscular Hemoglobin Concent 34.7 32.0-36.0 g/dL Red Cell Distribution Width 13.3 11.8-14.3 % Platelet Count 240 140-450 10^3/uL Mean Platelet Volume 8.5 6.9-10.8 fL Neutrophils (%) (Auto) 83.9 H 37.0-80.0 % Lymphocytes (%) (Auto) 5.9 L 10.0-50.0 % Monocytes (%) (Auto) 9.6 0.0-12.0 % Eosinophils (%) (Auto) 0.3 0.0-7.0 % Basophils (%) (Auto) 0.3 0.0-2.0 % Neutrophils # (Auto) 9.9 H 1.6-8.6 10 ^3/uL Lymphocytes # (Auto) 0.7 0.4-5.4 10 ^3/uL Monocytes # (Auto) 1.1 0-1.3 10 ^3/uL Eosinophils # (Auto) 0 0-0.8 10 ^3/uL Basophils # (Auto) 0 0-0.2 10 ^3/uL Nucleated Red Blood Cells 0.0 % Sodium Level 145 136-145 mmol/L Potassium Level 3.6 3.5-5.1 mmol/L Chloride Level 106 98-107 mmol/L Carbon Dioxide Level 26 20-31 mmol/L Anion Gap 13 5-15 Blood Urea Nitrogen 10 9-23 mg/dL Creatinine 1.02 0.550-1.02 mg/dL Glomerular Filtration Rate Calc 62 >90 mL/min BUN/Creatinine Ratio 9.8 L 10.0-20.0 Serum Glucose 100 74-106 mg/dL Calcium Level 9.2 8.7-10.4 mg/dL Total Bilirubin 1.2 H 0.2-1.0 mg/dL Aspartate Amino Transferase (AST) 47 H 13-40 U/L Alanine Aminotransferase (ALT) 26 7-40 U/L Alkaline Phosphatase 98 46-116 U/L Troponin I High Sensitivity 14 </=34 ng/L B-Type Natriuretic Peptide 161.48 0-100 pg/mL Total Protein 6.5 5.7-8.2 g/dL Albumin 3.5 3.2-4.8 g/dL Current Medications Medications (Trade) Dose Ordered Sig/Shelly Route Start Time Stop Time Status Last Admin Acetaminophen/ Hydrocodone Bitart (Natrona 5/325MG Tab) 1 tab ONCE ONCE PO 08/23/25 00:15 08/23/25 00:16 DC 08/23/25 00:15 Ondansetron HCl (Zofran Po) 4 mg ONCE ONCE PO 08/23/25 00:15 08/23/25 00:16 DC 08/23/25 00:15 PATIENT: MARCO CALLE AACCT: [id number] UNIT: [id number] : 1960 LOC: ER ROOM / BED: / AGE / SEX: 64 / F ADM STATUS: REG ER SERVICE 53 ORDERING PHYSICIAN: ANAYELI SHAH PROCEDURE(s): CX2CT - CHEST WITHOUT CONTRAST REASON: thoracic back pain ORDER NUMBER(s): [id number], ACCESSION NUMBER(s): [id number] EXAM: CT CHEST WITHOUT CONTRAST History: thoracic back pain Comparison Study: XY CHEST XRAY 1 VIEW on DOS: 07/04/25, XY CHEST PORTABLE on DOS: 07/02/25, CT CT ANGIO CHEST CONTRAST on DOS: 05/14/25, XY CHEST PORTABLE on DOS: 05/13/25, XY CHEST PORTABLE on DOS: 09/05/24 TECHNIQUE: Multidetector CT of the chest was performed. Imaging was performed without IV contrast. Axial, coronal, and sagittal multiplanar reformats were obtained from the axial data set by the technologist. Radiation Dose : CTDI vol 28.56 mGy, DLP 1145.99 mGy*cm. Findings: Evaluation is degraded by respiratory motion. Lungs: There is scattered atelectasis/ scarring. Pleura: Unremarkable Heart/Great vessels: There is mild cardiomegaly. There is no pericardial effusion. There are mild atherosclerotic calcifications of the aorta. There are coronary artery calcifications versus stents. Mediastinum: Unremarkable. Soft tissues/Bones: Unremarkable Upper abdomen: Prior cholecystectomy. Small hiatal hernia. Impression: 1. No acute intrathoracic abnormality. ATED BY: YNES DONNELLY MD DICTATED DATE/TIME: 08/22/252246 SIGNED BY: YNES DONNELLY MD SIGNED DATE/TIME: 08/22/252246 CC: PATIENT: MARCO CALLE AACCT: [id number] UNIT: [id number] : 1960 LOC: ER ROOM / BED: / AGE / SEX: 64 / F ADM STATUS: REG ER SERVICE 53 ORDERING PHYSICIAN: ANAYELI SHAH PROCEDURE(s): TS2CT - THORACIC SPINE WO CONTRAS REASON: left rib pain post fall ORDER NUMBER(s): [id number], ACCESSION NUMBER(s): [id number] EXAM: CT THORACIC SPINE WO CONTRAS INDICATION: left rib pain post fall COMPARISON: CT CHEST WITHOUT CONTRAST on DOS: 08/22/25, CT CERVICAL WITHOUT CONTRAST on DOS: 01/28/24 TECHNIQUE: Multiple axial CT images of the thoracic spine were obtained using bone algorithm. Axial and coronal reformatting was done. Bone and soft tissue windows were reviewed. Radiation Dose Information: CT Dose: CTDI volume is 28.56 mGy. Dose-length product is 1145.99 mGy*cm FINDINGS: No acute displaced fracture. Minimal degenerative changes of the thoracic spine characterized by endplate osteophytosis and intervertebral disc space narrowing. No CT evidence of high-grade spinal canal or neural foraminal stenosis. The paraspinal soft tissues are unremarkable. IMPRESSION: 1. No acute displaced fracture. 2. Radiation optimization: All CT scans at this facility use at least one of these dose optimization techniques: automated exposure control mA and/or kV adjustment per patient size (includes targeted exams where dose is matched to clinical indication) or iterative reconstruction. ATED BY: YNES DONNELLY MD DICTATED DATE/TIME: 08/22/252317 SIGNED BY: YNES DONNELLY MD SIGNED DATE/TIME: 08/22/252317 CC: CBC ordered CMP ordered Urinalysis ordered CT chest w/o contrast reviewed CT thoracic spine reviewed Natrona 5/325 mg p.o ordered Zofran 4 mg p.o. ordered Social work consult placed Patient verbalized understanding and agreeable with current plan of care Patient admitted to hospitalist for failure to thrive and need for social work consult Images Reviewed?: Images reviewed and evaluated by me Time of 1ST Reevaluation: 00:54 Reevaluation 1ST: N/A Patient Education/Counseling: Diagnosis, Treatment, Prognosis, Need For Follow Up Family Education/Counseling: No Family Present SEPSIS Sepsis Screen Date sepsis recognized/suspect: Aug 22, 2025 Time Sepsis recognized/suspect: 2141 Recent Procedure: No On Antibiotic Therapy: No Respiratory Rate >20: No Heart Rate >90: Yes Temp<36 C (96.8 F) or >38.3 C: No SBP <90 or MAP <65 mmHG: No New Acute Mental Status Change: No Is the patient on CPAP, BIPAP,: No Physician Orders Chest Without Contrast (08/22/25 21:54) Thoracic Spine Wo Contras (08/22/25 21:54) * Stave Planer Tender Consult (08/22/25 ) Urinalysis (08/23/25 00:11) Vital Signs Date Time Temp Pulse Resp B/P (MAP) Pulse Ox O2 Delivery O2 Flow Rate FiO2 08/22/25 21:40 98.5 100 18 106/79 97 98.5 Laboratory Tests Test 08/23/25 00:25 White Blood Count 11.8 10^3/uL (4.4-10.8) H Medications Medications Dose Ordered Sig/Shelly Route Start Time Stop Time Status Last Admin Dose Admin Acetaminophen/ Hydrocodone Bitart 1 tab ONCE ONCE PO 08/23/25 00:15 08/23/25 00:16 DC 08/23/25 00:15 Ondansetron HCl 4 mg ONCE ONCE PO 08/23/25 00:15 08/23/25 00:16 DC 08/23/25 00:15 Departure 1 Departure Time of Disposition: 00:10 Impression: Primary Impression: Failure to thrive Qualified Codes: R62.7 - Adult failure to thrive Additional Impressions: Contusion of rib on left side Qualified Codes: S29.8XXA - Other specified injuries of thorax, initial encounter Strain of thoracic spine Disposition: ADMITTED INPATIENT Condition: Stable Critical Care Note Critical Care Time?: No Stability Stability form required: No Heart Score Heart Score: Heart Score Response (Comments) Value History N/A 0 EKG N/A 0 Age N/A 0 Risk Factors N/A 0 Troponin N/A 0 Total 0 ANAYELI SHAH Aug 23, 2025 00:15
[2025-08-23 00:50] LABS: Hematocrit 43.6 % (36.0-46.0); Hemoglobin 15.1 g/dL (12.2-16.2); Mean Corpuscular Hemoglobin 31.3 pg (28.0-32.0); Mean Corpuscular Volume 90.1 fL (80.0-100.0); Nucleated Red Blood Cells % 0.0 %
[2025-08-23] MEDS: BACLOFEN 10 MG TAB PO ONE (01:00)
[2025-08-23] MEDS: HYDROmorphone HCL 2 MG/ML VL/or syr IV ONE (01:00)
[2025-08-23] MEDS: ENOXAPARIN SOD 40 MG/0.4 ML SYRINGE SC SCH (01:00)
[2025-08-23] MEDS: SODIUM CHLORIDE 0.9% 1,000 ML IV ONE ×2 (01:00→04:16)
[2025-08-23 01:04] LABS: Alanine Aminotransferase 26 U/L (7-40); Albumin 3.5 g/dL (3.2-4.8); Alkaline Phosphatase 98 U/L (46-116); Anion Gap 13 (5-15); BUN/Creatinine Ratio 9.8 (10.0-20.0); Blood Urea Nitrogen 10 mg/dL (9-23); Calcium 9.2 mg/dL (8.7-10.4); Carbon Dioxide 26 mmol/L (20-31); Chloride 106 mmol/L (98-107); Glucose 100 mg/dL (74-106); Potassium 3.6 mmol/L (3.5-5.1); Sodium 145 mmol/L (136-145); Total Protein 6.5 g/dL (5.7-8.2)
[2025-08-23 01:16] LABS: Bilirubin, Total 1.2 mg/dL (0.2-1.0)
--- NOTE | 2025-08-23 01:34 | DVHHPRES ---
History of Present Illness Resident Creating Document: MARJAN JONES RESIDENT History of Present Illness 64-year-old female with a past medical history of hypertension, hyperlipidemia, Crohn's disease and stroke in 2001 has come to the emergency department via ambulance after sustaining a mechanical fall. Patient is a poor historian, covered in stool, reports that she was going to the bathroom and fell down. On inquiry, she reports that she felt dizzy before the fall and that she usually uses a walker to ambulate but since she had to go emergently, she did not use it and paired with the dizziness fell down. She lives with her daughter who usually helps her but was unavailable yesterday. She can not remember when she fell or if she hit her head but reports that her neighbor called the ambulance. She also complains of mid back pain and chest pain, both of which she rates as 9 x 10 in intensity, nonradiating, not relieved or aggravated by any factors. thoracic CT shows no displaced fractures, minimal degenerative changes of the thoracic spine and CT chest is normal. Vitals on admission, temp 98.5, HR 100, RR 18, BP 106/79 mmHg, SpO2 97% at room air. PMH: As stated above PSH: None Family history: Reviewed, noncontributory to the management of this case Social history: Patient lives with her daughter. Patient smokes 5-7 cigarettes per day for as long as she can remember, used to take med but quit in 2001 after stroke event, denies any alcohol abuse Allergies: None Code status: Full code Review of Systems Constitutional: Yes: Other (Mechanical fall due to dizziness); No: Fever, Chills, Sweats, Weakness, Malaise Eyes: No: Pain, Vision change, Conjunctivae inflammation, Eyelid inflammation, Other, Redness ENT: No: Ear pain, Ear discharge, Nose pain, Nose discharge, Nose congestion, Mouth pain, Mouth swelling, Throat pain, Throat swelling, Other Respiratory: No: Cough, Dry, Shortness of breath, SOB with excertion, Wheezing, Hemoptysis, Pleuritic Pain, Sputum, Wheezing, Other 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: Chest Pain, Lt Headedness; No: Palpitations, Orthopnea, Pa roxysmal Noc. Dyspnea, Edema, Other Gastrointestinal: No: Nausea, Vomiting, Abdominal Pain, Diarrhea, Constipation, Melena, Hematochezia, Other Genitourinary: No Dysuria, No Frequency, No Incontinence, No Hematuria, No Retention, No Other Musculoskeletal: back pain; No: other, neck pain, shoulder pain, arm pain, hand pain, leg pain, foot pain Skin: No: Rash, Lesions, Jaundice, Bruising, Other Neurological: No: Weakness, Numbness, Incoordination, Change in speech, Confusion, Seizures, Other Allergies: Coded Allergies: Codeine (Verified Allergy, Unknown, 03/10/22) Ketorolac (Verified Allergy, Unknown, 03/10/22) Penicillins (Verified Allergy, Unknown, 03/10/22) Tromethamine (Verified Allergy, Unknown, 03/10/22) Medications Current Medications Medications Dose Ordered Sig/Shelly Route Start Time Stop Time Status Last Admin Dose Admin Acetaminophen/ Hydrocodone Bitart 1 tab Q4HP PRN PO 08/23/25 01:00 Ondansetron HCl 4 mg Q4HP PRN IV 08/23/25 01:00 Acetaminophen 650 mg Q6HP PRN PO 08/23/25 01:00 Enoxaparin Sodium 40 mg DAILY SC 08/23/25 01:00 Hydromorphone HCl 0.25 mg Q4HPRN PRN IV 08/23/25 06:00 Aspirin 81 mg DAILY PO 08/23/25 10:00 Clopidogrel Bisulfate 75 mg DAILY PO 08/23/25 10:00 Losartan Potassium 50 mg DAILY PO 08/23/25 10:00 Atorvastatin Calcium 80 mg DAILY PO 08/23/25 10:00 Baclofen 5 mg Q8HR PO 08/23/25 06:00 Exam Vital Signs Vital Signs Date Time Temp Pulse Resp B/P (MAP) Pulse Ox O2 Delivery O2 Flow Rate FiO2 08/22/25 21:40 98.5 100 18 106/79 97 98.5 Exam General Appearance: Alert, Oriented X3, Disheveled, covered in stool HEENT: Atraumatic, Mucous membranes moist/pink Respiratory: Clear to auscultation, Normal air movement, No added sounds 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: Regular rate, Normal S1, Normal S2, No murmurs, pain on palpation of the chest Abdominal: Active bowel sounds, Soft, no distention, no tenderness Extremities: No edema, Normal pulses, No tenderness/swelling MSK: mid back pain on palpation Skin: No Significant rash, except past surgical scars Neuro: Normal speech, sensorimotor deficits none Psych/Mental Status: Mental status NL, Mood NL Labs/Xrays Labs Test 08/23/25 01:20 08/23/25 00:25 Range/Units White Blood Count 11.8 H 4.4-10.8 10^3/uL Red Blood Count 4.84 4.0-5.20 10^6/uL Hemoglobin 15.1 12.2-16.2 g/dL Hematocrit 43.6 36.0-46.0 % Mean Corpuscular Volume 90.1 80.0-100.0 fL Mean Corpuscular Hemoglobin 31.3 28.0-32.0 pg Mean Corpuscular Hemoglobin Concent 34.7 32.0-36.0 g/dL Red Cell Distribution Width 13.3 11.8-14.3 % Platelet Count 240 140-450 10^3/uL Mean Platelet Volume 8.5 6.9-10.8 fL Neutrophils (%) (Auto) 83.9 H 37.0-80.0 % Lymphocytes (%) (Auto) 5.9 L 10.0-50.0 % Monocytes (%) (Auto) 9.6 0.0-12.0 % Eosinophils (%) (Auto) 0.3 0.0-7.0 % Basophils (%) (Auto) 0.3 0.0-2.0 % Neutrophils # (Auto) 9.9 H 1.6-8.6 10 ^3/uL Lymphocytes # (Auto) 0.7 0.4-5.4 10 ^3/uL Monocytes # (Auto) 1.1 0-1.3 10 ^3/uL Eosinophils # (Auto) 0 0-0.8 10 ^3/uL Basophils # (Auto) 0 0-0.2 10 ^3/uL Nucleated Red Blood Cells 0.0 % Sodium Level 145 136-145 mmol/L Potassium Level 3.6 3.5-5.1 mmol/L Chloride Level 106 98-107 mmol/L Carbon Dioxide Level 26 20-31 mmol/L Anion Gap 13 5-15 Blood Urea Nitrogen 10 9-23 mg/dL Creatinine 1.02 0.550-1.02 mg/dL Glomerular Filtration Rate Calc 62 >90 mL/min BUN/Creatinine Ratio 9.8 L 10.0-20.0 Serum Glucose 100 74-106 mg/dL Calcium Level 9.2 8.7-10.4 mg/dL Total Bilirubin 1.2 H 0.2-1.0 mg/dL Aspartate Amino Transferase (AST) 47 H 13-40 U/L Alanine Aminotransferase (ALT) 26 7-40 U/L Alkaline Phosphatase 98 46-116 U/L Total Protein 6.5 5.7-8.2 g/dL Albumin 3.5 3.2-4.8 g/dL SEPSIS Sepsis Screen Date sepsis recognized/suspect: Aug 22, 2025 Time Sepsis recognized/suspect: 2141 Recent Procedure: No On Antibiotic Therapy: No Respiratory Rate >20: No Heart Rate >90: Yes Temp<36 C (96.8 F) or >38.3 C: No SBP <90 or MAP <65 mmHG: No New Acute Mental Status Change: No Is the patient on CPAP, BIPAP,: No Physician Orders Chest Without Contrast (08/22/25 21:54) Thoracic Spine Wo Contras (08/22/25 21:54) * Music Video Director Consult (08/22/25 ) Urinalysis (08/23/25 00:11) Admit (08/23/25 00:52) Code Status (08/23/25 00:52) Hydrocodone-Acet 5/325mg Tab ([place] 5/32 (08/23/25 01:00) Ondansetron Hcl (Zofran) (08/23/25 01:00) Complete Blood Count (08/23/25 04:00) Comprehensive Metabolic Panel (08/23/25 04:00) Cardiac Diet-2gna,Lofat,Lochol (08/23/25 Breakfast) Condition: Unstable (08/23/25 00:52) Acetaminophen Tablet (Tylenol Tablet) (08/23/25 01:00) Enoxaparin Sodium (Lovenox) (08/23/25 01:00) Hydromorphone Injection (Dilaudid Inject (08/23/25 06:00) B-Type Natriuretic Peptide (08/23/25 00:52) Magnesium (08/23/25 00:52) Drug Screen (08/23/25 00:52) Chest Xray 1 View (08/23/25 00:52) Troponin-I Hs (08/23/25 00:52) Head Without Contrast (08/23/25 00:52) Carotid Duplx W Color Dop (08/23/25 00:52) Electrocardigram (08/23/25 00:52) Aspirin Enteric Coated Tablet (Ecotrin E (08/23/25 10:00) Clopidogrel Bisulfate (Plavix) (08/23/25 10:00) Losartan Tablet (Cozaar Tablet) (08/23/25 10:00) Atorvastatin (Lipitor) (08/23/25 10:00) Baclofen Tablet (Liorisal Tablet) (08/23/25 06:00) Sodium Chloride 0.9% (08/23/25 01:00) Thyroid Stimulating Hormone (08/23/25 00:52) Ammonia (08/23/25 00:52) Vital Signs Date Time Temp Pulse Resp B/P (MAP) Pulse Ox O2 Delivery O2 Flow Rate FiO2 08/22/25 21:40 98.5 100 18 106/79 97 98.5 Laboratory Tests Test 08/23/25 00:25 White Blood Count 11.8 10^3/uL (4.4-10.8) H Assessment/Plan Assessment/Plan #Autonomic disorder #Intractable Back pain S/P mechanical fall, Ruled out fractures, likely musculoskeletal #Chest pain S/P mechanical fall, ruled out ACS, likely musculoskeletal - troponin - EKG - tele monitor - Thoracic spine CT shows: No acute displaced fracture. Minimal degenerative changes of the thoracic spine characterized by endplate osteophytosis and intervertebral disc space narrowing. No CT evidence of high-grade spinal canal or neural foraminal stenosis. The paraspinal soft tissues are unremarkable. - Chest CT normal - chest x-ray - BNP 161.48 - baclofen 5 mg p.o. once and TDS daily - pain management with: - acetaminophen 650 mg q.6 PRN for mild pain - [place] 5/325 mg q.4 PRN for moderate pain - Dilaudid 0.5 g once and q.4 PRN for severe pain - IV Zofran 4 mg q.4 PRN - magnesium 1.8 - Ammonia 12 - Troponin negative - TSH 2.25 - carotid Doppler - CT head: No acute intracranial abnormality - B12 - UA - UDS # Hypertension # Hyperlipidemia # History of stroke, no neurological deficits - last echo done on 05/14/2025 shows ejection fraction 50% - continue home medication aspirin 81 mg p.o. daily - continue home medication clopidogrel 75 mg p.o. daily - continue home medication atorvastatin 10 80 mg p.o. daily - continue home medication losartan 50 mg p.o. daily - BNP 161.48 - CXR: Heart appears normal in size. The lungs appear clear without focal airspace opacity, effusion, or pneumothorax #Small hiatal hernia - Seen in CT chest without contrast - monitor - Outpatient follow up #Morbid obesity, BMI 46.6kg/m2 -pt counselled regarding need of weight loss, healthier diet and exercise for over 5 minutes DVT prophylaxis: Lovenox 40 mg subcutaneous daily Diet: Cardiac diet Goals of care discussed with the patient for more than 27 minutes: Full code status Case discussed with Dr. Logan, patient Plan discussed with: Patient My Orders Orders - MARJAN JONES RESIDENT Procedure Category Date Status Time Admit ADMIT 08/23/25 Transmitted 00:52 Code Status CODE 08/23/25 Transmitted 00:52 Hydrocodone-Acet PHA 08/23/25 In Process 5/325mg Tab ([place] 01:00 Ondansetron Hcl PHA 08/23/25 In Process (Zofran) 01:00 Complete Blood Count LAB 08/23/25 Logged 04:00 Comprehensive LAB 08/23/25 Logged Metabolic Panel 04:00 Cardiac DIET 08/23/25 Transmitted Diet-2gna,Lofat,Lochol Breakfast Condition: Unstable ELEONORA 08/23/25 In Process 00:52 Acetaminophen Tablet PHA 08/23/25 In Process (Tylenol Tablet) 01:00 Enoxaparin Sodium PHA 08/23/25 In Process (Lovenox) 01:00 Hydromorphone PHA 08/23/25 In Process Injection (Dilaudid 06:00 B-Type Natriuretic LAB 08/23/25 In Process Peptide 00:52 Magnesium LAB 08/23/25 In Process 00:52 Drug Screen LAB 08/23/25 Logged 00:52 Chest Xray 1 View XY 08/23/25 Logged 00:52 Troponin-I Hs LAB 08/23/25 In Process 00:[address] 08/23/25 Logged 00:52 Carotid Duplx W Color US 08/23/25 Logged DOP 00:52 Electrocardigram EKG 08/23/25 Logged 00:52 Aspirin Enteric PHA 08/23/25 In Process Coated Tablet 10:00 Clopidogrel Bisulfate PHA 08/23/25 In Process (Plavix) 10:00 Losartan Tablet PHA 08/23/25 In Process (Cozaar Tablet) 10:00 Atorvastatin (Lipitor) PHA 08/23/25 In Process 10:00 Baclofen Tablet PHA 08/23/25 In Process (Liorisal Tablet) 06:00 Sodium Chloride 0.9% PHA 08/23/25 In Process 01:00 Thyroid Stimulating LAB 08/23/25 In Process Hormone 00:52 Ammonia LAB 08/23/25 In Process 00:52 Date of Service: Aug 23, 2025 Billing Provider: REBEKAH LOGAN MD Common Visit Codes: [id number] INP/OBS CARE (HIGH) Secondary Visit Codes: [id number] CARE PLAN 30 MINUTES MARJAN JONES RESIDENT Aug 23, 2025 01:34
[2025-08-23 02:10] VITALS: PULSE 87; O2SAT 97
--- NOTE | 2025-08-23 03:04 | DVH ---
EXAM: CT HEAD WITHOUT CONTRAST INDICATION: head injury TECHNIQUE: CT of the head without intravenous contrast. Radiation Dose Information: CT Dose: CTDI volume is 52.69 mGy. Dose-length product is 844.73 mGy*cm The dose indicators for CT are the volume Computed Tomography (CT) Dose Index (CTDIvol) and the Dose Length Product (DLP), and are measured in units of mGy and mGy-cm, respectively. These indicators are not patient dose, but values generated from the CT scanner acquisition factors. The report includes radiation exposure data for exposures received during this examination. COMPARISON: CT HEAD WITHOUT CONTRAST on DOS: 04/03/24, CT HEAD WITHOUT CONTRAST on DOS: 01/27/24, HEAD WITHOUT CONTRAST on DOS: 07/23/22 FINDINGS: There is no evidence of acute intracranial hemorrhage, extra-axial collection, mass effect, midline shift, herniation or hydrocephalus. The ventricles, sulci and cisterns are age appropriate. The reynolds-white differentiation is intact. Patchy periventricular and subcortical white matter hypoattenuation is nonspecific but may be related to small vessel ischemic disease. Findings of prior infarction left occipital lobe and possible right frontal lobe. No significant interval change. The visualized paranasal sinuses and mastoid air cells are clear. The surrounding soft tissues and osseous structures are unremarkable. IMPRESSION: 1. No acute intracranial abnormality.
--- NOTE | 2025-08-23 03:05 | DVH ---
CHEST RADIOGRAPH Indication: sob Technique: Single frontal view of the chest was obtained Comparison: XY CHEST XRAY 1 VIEW on DOS: 07/04/25, XY CHEST PORTABLE on DOS: 07/02/25, XY CHEST PORTABLE on DOS: 05/13/25 IMPRESSION: Heart appears normal in size. The lungs appear clear without focal airspace opacity, effusion, or pneumothorax
[2025-08-23] MEDS ORDERED: SODIUM CHLORIDE 0.9% 1,000 ML IV ONE (04:15)
[2025-08-23] MEDS: BACLOFEN 10 MG TAB PO SCH (05:41)
[2025-08-23] MEDS ORDERED: HYDROmorphone HCL 2 MG/ML VL/or syr IV PRN (06:00)
[2025-08-23 06:10] LABS: Hematocrit 38.9 % (36.0-46.0); Hemoglobin 13.3 g/dL (12.2-16.2); Mean Corpuscular Hemoglobin 31.6 pg (28.0-32.0); Mean Corpuscular Volume 92.1 fL (80.0-100.0); Nucleated Red Blood Cells % 0.1 %
[2025-08-23 06:26] LABS: Alanine Aminotransferase 23 U/L (7-40); Alkaline Phosphatase 85 U/L (46-116); Anion Gap 13 (5-15); BUN/Creatinine Ratio 9.5 (10.0-20.0); Blood Urea Nitrogen 10 mg/dL (9-23); Carbon Dioxide 24 mmol/L (20-31)
[2025-08-23 06:27] LABS: Bilirubin, Total 1.2 mg/dL (0.2-1.0)
[2025-08-23 06:28] LABS: Albumin 3.0 g/dL (3.2-4.8); Calcium 8.4 mg/dL (8.7-10.4); Chloride 109 mmol/L (98-107); Glucose 110 mg/dL (74-106); Potassium 3.1 mmol/L (3.5-5.1); Sodium 146 mmol/L (136-145); Total Protein 5.6 g/dL (5.7-8.2)
[2025-08-23 07:30] VITALS: PULSE 85; RESP 18; O2SAT 98
[2025-08-23] MEDS: POTASSIUM EFFERVESENT TAB 25 MEQ PO ONE (08:15)
[2025-08-23] MEDS: MAGNESIUM OXIDE 400 MG TAB PO ONE (08:15)
[2025-08-23] MEDS: ALBUMIN 5% 250 ML IV ONE (08:20)
--- NOTE | 2025-08-23 08:35 | DVH ---
INDICATION: dizziness TECHNIQUE: Real-time hagan scale, color and spectral Doppler ultrasound images of the bilateral carotid and vertebral arteries obtained. Ultrasound of the bilateral carotid and vertebral systems obtained, including grayscale imaging with color and spectral Doppler. COMPARISON: US CAROTID DUPLX W COLOR DOP on DOS: 04/04/24, FINDINGS: RIGHT ICA/CCA 0.8 LEFT ICA/CCA 0.8 Peak velocity RIGHT ICA 98.4 cm/sec. Peak velocity LEFT ICA 93.1 cm/sec. Peak velocity RIGHT CCA 120.7 cm/sec. Peak velocity LEFT CCA 124.4 cm/sec. Grayscale and color Doppler images of the right common and right internal carotid artery demonstrates atherosclerotic plaque at the carotid bulb and the proximal ICA. Grayscale and color Doppler images of the left common and left internal carotid artery demonstrates atherosclerotic plaque at the carotid bulb and the proximal ICA. Vertebral arteries: Have antegrade flow bilaterally. *Consensus Panel Hagan-Scale and Doppler US Criteria for Diagnosis of ICA Stenosis Degree of ICA PSV Plaque Estimate ICA/CCA PSV ICA EDV Stenosis (%) (cm/sec) %* Ratio (cm/sec) ICA PSV ICA/CCA PSV Degree of Stenosis <125 <2.0 Normal <125 <2.0 <50 When plaque visible 125-230 2.0-4.0 50-69 When plaque visible >230 >4.0 greater than or equal to 70 but less than near occlusion Source: Carotid Artery Stenosis: Hagan-Scale and Color Doppler US Diagnosis- Society of Radiologists in Ultrasound Consensus Conference, 2003. IMPRESSION: 1. Less than 50% stenosis of the bilateral internal carotid arteries proximally. 2. Patent and antegrade flow vertebral arteries.
[2025-08-23] MEDS ORDERED: ONDANSETRON HCL 4 MG/2 ML VIAL IM ONE (09:45)
[2025-08-23] MEDS: CLOPIDOGREL BISULFATE 75 MG TAB PO SCH (09:56)
[2025-08-23] MEDS: ATORVASTATIN 20 MG TAB PO SCH (09:56)
[2025-08-23] MEDS: ASPirin-EC 81 mg tab PO SCH (09:56)
[2025-08-23] MEDS: ONDANSETRON HCL 4 MG/2 ML VIAL IV PRN (09:57)
[2025-08-23] MEDS ORDERED: LOSARTAN POTASSIUM 50 MG TAB PO SCH (10:00)
--- NOTE | 2025-08-23 10:09 | ECG ---
[facility] Test Date: 2025-08-23 Test Time: 10:07:39 Pat Name: MARCO CALLE Department: ER Room: 0246T Gender: F Multiple Slide Operator: DR VERDUGO: 1960 Requested By: MARJAN JONES Order Number: [id number] Reading MD: Guillermo Andrew Measurements Intervals Dixon Rate: 63 P: 39 WY: 169 QRS: -1 QRSD: 113 T: 17 QT: 478 QTc: 490 Interpretive Statements Sinus rhythm Abnormal R-wave progression, early transition Inferior infarct, old Electronically Signed On 08-25-2025 15:44:11 PST by Guillermo Andrew Please click the below link to view image of tracing.
[2025-08-23] MEDS: MIDODRINE HCL 10 MG TAB PO ONE (10:20)
[2025-08-23] MEDS: ONDANSETRON HCL 4 MG/2 ML VIAL IV ONE (10:20)
[2025-08-23] MEDS: MIDODRINE HCL 10 MG TAB PO SCH (12:00)
[2025-08-23] MEDS: HYDROcodone-ACET 5/325MG TAB PO PRN (12:44)
[2025-08-23 19:32] VITALS: PULSE 62; RESP 20; O2SAT 95
--- NOTE | 2025-08-23 20:03 | DVHPNRES ---
Progress Note Date Seen: Aug 23, 2025 Resident Creating Document: THOMAS SOTO RESIDENT Medical Necessity Reason Pt with a Central, PICC or Fol: No Subjective Review of Systems Amelie Bautista is a 64-year old female with past medical history of hyperlipidemia, hypertension, Crohn's disease and stroke 5 years back who was brought into the ED after a mechanical fall. Patient is a poor historian and reported that she was on her way to the restroom, when she felt dizzy and sustained a fall. She does not recall losing consciousness after the fall and does not remember if she hit her head. She recalls her neighbors coming to help her and calling 911 after they heard her crying for help. She also complains of back pain and chest pain, rated 9/10 in intensity, nonradiating with no aggravating or relieving factors. Thoracic spine CT showed no displaced fractures and minimal degenerative changes. Chest CT is normal. Head CT is normal. Carotid Doppler showed less than 50% stenosis of the bilateral internal carotid arteries proximally. The patient's granddaughter was called and given all updates. 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 Patient is alert and oriented to time, place person and responding to all questions. Eyes: No Pain, No Vision change, No Conjunctivae inflammation, No Eyelid inflammation, No Redness ENT: No Ear pain, No Ear discharge, No Nose pain, No Nose discharge, No Nose congestion, No Mouth pain, No Mouth swelling, No Throat pain, No Throat swelling 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: Chest Pain, No Palpitations, No Orthopnea, No Paroxysmal No Dyspnea, No Edema, No Lt Headedness Respiratory: No Cough, No Dry, No Shortness of breath, No SOB with exertion, No Wheezing, No Hemoptysis, No Pleuritic Pain, No Sputum Gastrointestinal: Nausea, Vomiting, No Abdominal Pain, No Diarrhea, No Constipation, No Melena, No Hematochezia Genitourinary: No Dysuria, No Frequency, No Incontinence, No Hematuria, No Retention Objective vital signs Vital Sign Date Time Temp Pulse Resp B/P (MAP) Pulse Ox O2 Delivery O2 Flow Rate FiO2 08/23/25 18:00 63 13 102/36 (58) 98 08/23/25 12:25 98.0 98.0 08/23/25 07:30 Room Air* 0 21 medications Current Medications Medications Dose Ordered Sig/Shelly Route Start Time Stop Time Status Last Admin Dose Admin Acetaminophen/ Hydrocodone Bitart 1 tab Q4HP PRN PO 08/23/25 01:00 08/23/25 12:44 1 TAB Ondansetron HCl 4 mg Q4HP PRN IV 08/23/25 01:00 08/23/25 09:57 4 MG Acetaminophen 650 mg Q6HP PRN PO 08/23/25 01:00 Enoxaparin Sodium 40 mg DAILY SC 08/23/25 01:00 08/23/25 01:00 40 MG Hydromorphone HCl 0.25 mg Q4HPRN PRN IV 08/23/25 06:00 Aspirin 81 mg DAILY PO 08/23/25 10:00 08/23/25 09:56 81 MG Clopidogrel Bisulfate 75 mg DAILY PO 08/23/25 10:00 08/23/25 09:56 75 MG Atorvastatin Calcium 80 mg DAILY PO 08/23/25 10:00 08/23/25 09:56 80 MG Baclofen 5 mg Q8HR PO 08/23/25 06:00 08/23/25 16:29 5 MG Midodrine 10 mg TID@0600,1200,1800 PO 08/23/25 12:00 08/23/25 18:15 10 MG Examination General Appearance: Cooperative. Well developed. Well nourished. NAD Head Exam: Normal inspection Neck Exam: Normal inspection. Non-tender. Normal alignment Pulmonary/Respiratory: Chest non-tender. Clear bilateral breath sounds, no crackles, no wheezing. 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/Chest: Regular rate and rhythm. No murmurs. No JVD, tenderness on palpation of chest Peripheral Pulses: 2+ Radial (R). 2+ Radial (L). 2+ Pedal (R). 2+ Pedal (L) Abdominal Exam: Normal bowel sounds. Soft. normal abdomen, no visible veins, Nontender. No hepatospenomegaly. No masses Ankle Exam: Negative ankle edema Lower extremities: Negative lower extremity edema Neuro/Mental Status: A&O x3. Coherent. Slow speech Thoughts/Psych: Normal thought pattern. Appropriate mood and affect. Good judgement and insight Skin Exam: Normal inspection. Normal color. Warm. Dry, multiple healed scars on bilateral legs, rash with erythema in gluteal cleft laboratory and microbiology Laboratory Tests 08/23/25 05:01 Test 08/23/25 05:01 Range/Units Serum Glucose 110 H 74-106 mg/dL Labs and/or images reviewed: Labs reviewed by me, Image(s) reviewed by me Problem List/Assessment/Plan Problem List/Assessment/Plan # Autonomic disorder # Chest pain, ruled out ACS, likely musculoskeletal # Intractable Back pain S/P mechanical fall, ruled out fractures, likely musculoskeletal - troponin negative - EKG-old inferior infarct - Thoracic spine CT shows: No acute displaced fracture. Minimal degenerative changes of the thoracic spine characterized by endplate osteophytosis and intervertebral disc space narrowing. No CT evidence of high-grade spinal canal or neural foraminal stenosis. The paraspinal soft tissues are unremarkable. - Chest CT normal - chest x-ray -no acute abnormality - BNP 161.48 - baclofen 5 mg p.o. tid - carotid Doppler- Less than 50% stenosis of the bilateral internal carotid arteries proximally - CT head: No acute intracranial abnormality -midodrine 10mg po tid -albumin 250ml -got 2 liter NS overnight # Hypertensive heart disease with diastolic/systolic heart failure # Hyperlipidemia # History of stroke, no residual neurological deficits - last echo done on 05/14/2025 shows ejection fraction 50% - continue home medication aspirin 81 mg p.o. daily - continue home medication clopidogrel 75 mg p.o. daily - continue home medication atorvastatin 10 80 mg p.o. daily - continue home medication losartan 50 mg p.o. daily - BNP 161.48 - CXR: Heart appears normal in size. The lungs appear clear without focal airspace opacity, effusion, or pneumothorax #LYNN,likely due to VMN -avoid nephrotoxic agents -monitor BNP #Small hiatal hernia - Seen in CT chest without contrast - monitor - Outpatient follow up # Crohns disease -monitor # Hypernatremia -sodium 146 -monitor BNP # Hypokalemia -repleted #Morbid obesity, BMI 46.6kg/m2 -the patient counseled about healthy lifestyle modifications and dietary habits for> 10 minutes DVT prophylaxis: Lovenox 40 mg subcutaneous daily Diet: Cardiac diet Goals of care discussed with the patient for > 27 minutes: Full code status Case discussed with Dr. Goldberg, patient and grand daughter Plan discussed with: Patient, Other My Orders My Orders Orders - THOMAS SOTO Procedure Category Date Status Time Communication Order ORDERS 08/23/25 Transmitted 10:11 * [employer] CONS 08/23/25 Transmitted Consult Date of Service: Aug 23, 2025 Billing Provider: REBEKAH GOLDBERG MD Common Visit Codes: [id number] INP/OBS CARE(HIGH) THOMAS SOTO RESIDENT Aug 23, 2025 20:03
[2025-08-23 21:15] VITALS: BP 141/61; PULSE 58; RESP 18; TEMP 97.5; O2SAT 97
[2025-08-23 22:00] VITALS: PULSE 84
[2025-08-23 23:15] VITALS: PULSE 58
[2025-08-24] VITALS (10 sets, daily range): BP systolic 100–130; BP diastolic 52–71; PULSE 54–78; RESP 17–19; TEMP 97.3–98.5; O2SAT 91–100
[2025-08-24] MEDS: NICOTINE 7MG/24HR TOPICAL PATCH TD ONE (00:30)
[2025-08-24 06:55] LABS: Hematocrit 39.2 % (36.0-46.0); Hemoglobin 13.4 g/dL (12.2-16.2); Mean Corpuscular Hemoglobin 31.6 pg (28.0-32.0); Mean Corpuscular Volume 92.9 fL (80.0-100.0); Nucleated Red Blood Cells % 0.2 %
[2025-08-24 07:15] LABS: Potassium 3.9 mmol/L (3.5-5.1); Sodium 144 mmol/L (136-145)
[2025-08-24 07:16] LABS: Anion Gap 9 (5-15); Carbon Dioxide 27 mmol/L (20-31)
[2025-08-24 07:21] LABS: BUN/Creatinine Ratio 14.8 (10.0-20.0); Blood Urea Nitrogen 18 mg/dL (9-23); Glucose 87 mg/dL (74-106)
[2025-08-24 07:25] LABS: Calcium 8.6 mg/dL (8.7-10.4); Chloride 108 mmol/L (98-107)
[2025-08-24] MEDS: ACETAMINOPHEN 325 MG TAB PO PRN (09:04)
[2025-08-24 11:21] LABS: Urine Protein, UAD 1+ (Negative); Urine WBC Clumps PRESENT /hpf (None Seen)
[2025-08-24] MEDS: SODIUM CHLORIDE 0.9% 1,000 ML IV ONE (12:09)
--- NOTE | 2025-08-24 18:47 | DVHPNRES ---
Progress Note Date Seen: Aug 24, 2025 Resident Creating Document: THOMAS SOTO RESIDENT Medical Necessity Reason Pt with a Central, PICC or Fol: No Subjective Review of Systems Amelie Bautista is a 64-year old female with past medical history of hyperlipidemia, hypertension, Crohn's disease and stroke 5 years back who was brought into the ED after a mechanical fall. Patient is a poor historian and reported that she was on her way to the restroom, when she felt dizzy and sustained a fall. She does not recall losing consciousness after the fall and does not remember if she hit her head. She recalls her neighbors coming to help her and calling 911 after they heard her crying for help. She also complains of back pain and chest pain, rated 9/10 in intensity, nonradiating with no aggravating or relieving factors. Thoracic spine CT showed no displaced fractures and minimal degenerative changes. Chest CT is normal. Head CT is normal. Carotid Doppler showed less than 50% stenosis of the bilateral internal carotid arteries proximally. The patient's granddaughter was called and given all updates. 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 Patient is alert and oriented to time, place person and responding to all questions. Eyes: No Pain, No Vision change, No Conjunctivae inflammation, No Eyelid inflammation, No Redness ENT: No Ear pain, No Ear discharge, No Nose pain, No Nose discharge, No Nose congestion, No Mouth pain, No Mouth swelling, No Throat pain, No Throat swelling 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: Chest Pain, No Palpitations, No Orthopnea, No Paroxysmal No Dyspnea, No Edema, No Lt Headedness Respiratory: No Cough, No Dry, No Shortness of breath, No SOB with exertion, No Wheezing, No Hemoptysis, No Pleuritic Pain, No Sputum Gastrointestinal: Nausea, Vomiting, No Abdominal Pain, No Diarrhea, No Constipation, No Melena, No Hematochezia Genitourinary: No Dysuria, No Frequency, No Incontinence, No Hematuria, No Retention 08/24/25- The patient was seen and evaluated at bedside today. All labs and charts were reviewed. She had no new complaints. Urinalysis was positive for UTI, and patient was started on IV ceftriaxone 1 g daily. Physical therapist evaluated the patient and recommended SNF for physical therapy. Discharge planning was started with psychiatric social worker supervisor on board to arrange placement at . She is currently pending authorization from insurance and acceptance at [facility]. Objective vital signs Vital Sign Date Time Temp Pulse Resp B/P (MAP) Pulse Ox O2 Delivery O2 Flow Rate FiO2 08/24/25 17:00 97.6 61 19 121/71 (88) 99 97.6 08/24/25 08:00 Room Air* 0 21 Total Intake and Output 08/23/25 08/23/25 08/24/25 15:00 23:00 07:00 Intake Total 100 ml Balance 100 ml medications Current Medications Medications Dose Ordered Sig/Shelly Route Start Time Stop Time Status Last Admin Dose Admin Acetaminophen/ Hydrocodone Bitart 1 tab Q4HP PRN PO 08/23/25 01:00 08/24/25 00:55 1 TAB Ondansetron HCl 4 mg Q4HP PRN IV 08/23/25 01:00 08/23/25 09:57 4 MG Acetaminophen 650 mg Q6HP PRN PO 08/23/25 01:00 08/24/25 09:04 650 MG Enoxaparin Sodium 40 mg DAILY SC 08/23/25 01:00 08/24/25 08:55 40 MG Hydromorphone HCl 0.25 mg Q4HPRN PRN IV 08/23/25 06:00 Aspirin 81 mg DAILY PO 08/23/25 10:00 08/24/25 08:56 81 MG Clopidogrel Bisulfate 75 mg DAILY PO 08/23/25 10:00 08/24/25 08:56 75 MG Atorvastatin Calcium 80 mg DAILY PO 08/23/25 10:00 08/24/25 08:56 80 MG Baclofen 5 mg Q8HR PO 08/23/25 06:00 08/24/25 13:01 5 MG Midodrine 10 mg TID@0600,1200,1800 PO 08/23/25 12:00 08/24/25 18:20 10 MG Ceftriaxone Sodium 50 ml @ 100 mls/hr DAILY@09 IV 08/25/25 09:00 Examination General Appearance: Cooperative. Well developed. Well nourished. NAD Head Exam: Normal inspection Neck Exam: Normal inspection. Non-tender. Normal alignment Pulmonary/Respiratory: Chest non-tender. Clear bilateral breath sounds, no crackles, no wheezing. 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/Chest: Regular rate and rhythm. No murmurs. No JVD, tenderness on palpation of chest Peripheral Pulses: 2+ Radial (R). 2+ Radial (L). 2+ Pedal (R). 2+ Pedal (L) Abdominal Exam: Normal bowel sounds. Soft. normal abdomen, no visible veins, Nontender. No hepatospenomegaly. No masses Ankle Exam: Negative ankle edema Lower extremities: Negative lower extremity edema Neuro/Mental Status: A&O x3. Coherent. Slow speech Thoughts/Psych: Normal thought pattern. Appropriate mood and affect. Good judgement and insight Skin Exam: Normal inspection. Normal color. Warm. Dry, multiple healed scars on bilateral legs, rash with erythema in gluteal cleft laboratory and microbiology Laboratory Tests 08/24/25 05:52 Test 08/24/25 05:52 Range/Units Serum Glucose 87 74-106 mg/dL Labs and/or images reviewed: Labs reviewed by me, Image(s) reviewed by me Problem List/Assessment/Plan Problem List/Assessment/Plan # Autonomic disorder # Chest pain, ruled out ACS, likely musculoskeletal # Intractable Back pain S/P mechanical fall, ruled out fractures, likely musculoskeletal - troponin negative - EKG-old inferior infarct - Thoracic spine CT shows: No acute displaced fracture. Minimal degenerative changes of the thoracic spine characterized by endplate osteophytosis and intervertebral disc space narrowing. No CT evidence of high-grade spinal canal or neural foraminal stenosis. The paraspinal soft tissues are unremarkable. - Chest CT normal - chest x-ray -no acute abnormality - BNP 161.48 - baclofen 5 mg p.o. tid - carotid Doppler- Less than 50% stenosis of the bilateral internal carotid arteries proximally - CT head: No acute intracranial abnormality -midodrine 10mg po tid -albumin 250ml -got 2 liter NS overnight # Acute UTI -iv ceftriaxone 1gm daily # Hypertensive heart disease with chronic diastolic/systolic heart failure # Hyperlipidemia # History of stroke, no residual neurological deficits - last echo done on 05/14/2025 shows ejection fraction 50% - continue home medication aspirin 81 mg p.o. daily - continue home medication clopidogrel 75 mg p.o. daily - continue home medication atorvastatin 10 80 mg p.o. daily - continue home medication losartan 50 mg p.o. daily - BNP 161.48 - CXR: Heart appears normal in size. The lungs appear clear without focal airspace opacity, effusion, or pneumothorax #LYNN,likely due to VMN -avoid nephrotoxic agents -monitor BNP #Small hiatal hernia - Seen in CT chest without contrast - monitor - Outpatient follow up # Crohns disease -monitor # Hypernatremia -sodium 146 -monitor BNP # Hypokalemia -repleted #Morbid obesity, BMI 46.6kg/m2 -the patient counseled about healthy lifestyle modifications and dietary habits for> 10 minutes DVT prophylaxis: Lovenox 40 mg subcutaneous daily Diet: Cardiac diet Goals of care discussed with the patient for > 27 minutes: Full code status Case discussed with Dr. Goldberg, patient and grand daughter Plan discussed with: Patient My Orders My Orders Orders - THOMAS SOTO Procedure Category Date Status Time Sodium Chloride 0.9% PHA 08/24/25 In Process 10:15 Ceftriaxone 1gm/50ml PHA 08/25/25 In Process (Rocephin) 09:00 Date of Service: Aug 24, 2025 Billing Provider: REBEKAH GOLDBERG MD Common Visit Codes: 82805-[id number] INP/OBS CARE(HIGH) THOMAS SOTO RESIDENT Aug 24, 2025 18:47 REBEKAH GOLDBERG MD Aug 25, 2025 16:53
[2025-08-25] VITALS (7 sets, daily range): BP systolic 119–132; BP diastolic 39–71; PULSE 42–96; RESP 16–20; TEMP 97.6–98.4; O2SAT 94–98
[2025-08-25 07:39] LABS: Potassium 4.5 mmol/L (3.5-5.1); Sodium 143 mmol/L (136-145)
[2025-08-25 07:40] LABS: Anion Gap 10 (5-15); Carbon Dioxide 26 mmol/L (20-31)
[2025-08-25 07:45] LABS: Glucose 90 mg/dL (74-106)
[2025-08-25 07:46] LABS: BUN/Creatinine Ratio 15.3 (10.0-20.0); Blood Urea Nitrogen 15 mg/dL (9-23); Calcium 8.7 mg/dL (8.7-10.4); Chloride 107 mmol/L (98-107)
--- NOTE | 2025-08-25 15:35 | DVHPNRES ---
Progress Note Date Seen: Aug 25, 2025 Resident Creating Document: THOMAS SOTO RESIDENT Medical Necessity Reason Pt with a Central, PICC or Fol: No Subjective Review of Systems Amelie Bautista is a 64-year old female with past medical history of hyperlipidemia, hypertension, Crohn's disease and stroke 5 years back who was brought into the ED after a mechanical fall. Patient is a poor historian and reported that she was on her way to the restroom, when she felt dizzy and sustained a fall. She does not recall losing consciousness after the fall and does not remember if she hit her head. She recalls her neighbors coming to help her and calling 911 after they heard her crying for help. She also complains of back pain and chest pain, rated 9/10 in intensity, nonradiating with no aggravating or relieving factors. Thoracic spine CT showed no displaced fractures and minimal degenerative changes. Chest CT is normal. Head CT is normal. Carotid Doppler showed less than 50% stenosis of the bilateral internal carotid arteries proximally. The patient's granddaughter was called and given all updates. 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 Patient is alert and oriented to time, place person and responding to all questions. Eyes: No Pain, No Vision change, No Conjunctivae inflammation, No Eyelid inflammation, No Redness ENT: No Ear pain, No Ear discharge, No Nose pain, No Nose discharge, No Nose congestion, No Mouth pain, No Mouth swelling, No Throat pain, No Throat swelling 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: Chest Pain, No Palpitations, No Orthopnea, No Paroxysmal No Dyspnea, No Edema, No Lt Headedness Respiratory: No Cough, No Dry, No Shortness of breath, No SOB with exertion, No Wheezing, No Hemoptysis, No Pleuritic Pain, No Sputum Gastrointestinal: Nausea, Vomiting, No Abdominal Pain, No Diarrhea, No Constipation, No Melena, No Hematochezia Genitourinary: No Dysuria, No Frequency, No Incontinence, No Hematuria, No Retention 08/24/25- The patient was seen and evaluated at bedside today. All labs and charts were reviewed. She had no new complaints. Urinalysis was positive for UTI, and patient was started on IV ceftriaxone 1 g daily. Physical therapist evaluated the patient and recommended SNF for physical therapy. Discharge planning was started with community mental health social worker on board to arrange placement at [facility]. She is currently pending authorization from insurance and acceptance at [facility] [place]. Objective vital signs Vital Sign Date Time Temp Pulse Resp B/P (MAP) Pulse Ox O2 Delivery O2 Flow Rate FiO2 08/25/25 13:00 97.9 45 19 132/71 (91) 96 97.9 08/25/25 08:00 Room Air* 0 21 Total Intake and Output 08/24/25 08/24/25 08/25/25 15:00 23:00 07:00 Intake Total 50 ml 450 ml 560 ml Balance 50 ml 450 ml 560 ml medications Current Medications Medications Dose Ordered Sig/Shelly Route Start Time Stop Time Status Last Admin Dose Admin Acetaminophen/ Hydrocodone Bitart 1 tab Q4HP PRN PO 08/23/25 01:00 08/25/25 13:49 1 TAB Ondansetron HCl 4 mg Q4HP PRN IV 08/23/25 01:00 08/23/25 09:57 4 MG Acetaminophen 650 mg Q6HP PRN PO 08/23/25 01:00 08/24/25 09:04 650 MG Enoxaparin Sodium 40 mg DAILY SC 08/23/25 01:00 08/25/25 09:04 40 MG Hydromorphone HCl 0.25 mg Q4HPRN PRN IV 08/23/25 06:00 Aspirin 81 mg DAILY PO 08/23/25 10:00 08/25/25 09:05 81 MG Clopidogrel Bisulfate 75 mg DAILY PO 08/23/25 10:00 08/25/25 09:05 75 MG Atorvastatin Calcium 80 mg DAILY PO 08/23/25 10:00 08/25/25 09:05 80 MG Baclofen 5 mg Q8HR PO 08/23/25 06:00 08/25/25 13:49 5 MG Midodrine 10 mg TID@0600,1200,1800 PO 08/23/25 12:00 08/25/25 12:40 10 MG Ceftriaxone Sodium 50 ml @ 100 mls/hr DAILY@09 IV 08/25/25 09:00 08/25/25 09:04 100 MLS/HR Examination General Appearance: Cooperative. Well developed. Well nourished. NAD Head Exam: Normal inspection Neck Exam: Normal inspection. Non-tender. Normal alignment Pulmonary/Respiratory: Chest non-tender. Clear bilateral breath sounds, no crackles, no wheezing. 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/Chest: Regular rate and rhythm. No murmurs. No JVD, tenderness on palpation of chest Peripheral Pulses: 2+ Radial (R). 2+ Radial (L). 2+ Pedal (R). 2+ Pedal (L) Abdominal Exam: Normal bowel sounds. Soft. normal abdomen, no visible veins, Nontender. No hepatospenomegaly. No masses Ankle Exam: Negative ankle edema Lower extremities: Negative lower extremity edema Neuro/Mental Status: A&O x3. Coherent. Slow speech Thoughts/Psych: Normal thought pattern. Appropriate mood and affect. Skin Exam: Normal inspection. Normal color. Warm. Dry, multiple healed scars on bilateral legs, rash with erythema in gluteal cleft laboratory and microbiology Laboratory Tests 08/25/25 06:45 08/24/25 05:52 Test 08/25/25 06:45 Range/Units Serum Glucose 90 74-106 mg/dL Labs and/or images reviewed: Labs reviewed by me, Image(s) reviewed by me Problem List/Assessment/Plan Problem List/Assessment/Plan # Autonomic disorder # Chest pain, ruled out ACS, likely musculoskeletal # Intractable Back pain S/P mechanical fall, ruled out fractures, likely musculoskeletal - troponin negative - EKG-old inferior infarct - Thoracic spine CT shows: No acute displaced fracture. Minimal degenerative changes of the thoracic spine characterized by endplate osteophytosis and intervertebral disc space narrowing. No CT evidence of high-grade spinal canal or neural foraminal stenosis. The paraspinal soft tissues are unremarkable. - Chest CT normal - chest x-ray -no acute abnormality - BNP 161.48 - baclofen 5 mg p.o. tid - carotid Doppler- Less than 50% stenosis of the bilateral internal carotid arteries proximally - CT head: No acute intracranial abnormality -midodrine 10mg po tid -got 2 liter NS overnight # Acute UTI -iv ceftriaxone 1gm daily # Hypertensive heart disease with diastolic/systolic heart failure # Hyperlipidemia # History of stroke, no residual neurological deficits - last echo done on 05/14/2025 shows ejection fraction 50% - continue home medication aspirin 81 mg p.o. daily - continue home medication clopidogrel 75 mg p.o. daily - continue home medication atorvastatin 10 80 mg p.o. daily - continue home medication losartan 50 mg p.o. daily - BNP 161.48 - CXR: Heart appears normal in size. The lungs appear clear without focal airspace opacity, effusion, or pneumothorax #LYNN,likely due to VMN -avoid nephrotoxic agents -monitor BNP #Small hiatal hernia - Seen in CT chest without contrast - monitor - Outpatient follow up # Crohns disease -monitor # Hypernatremia -sodium 146 -monitor BNP # Hypokalemia -repleted #Morbid obesity, BMI 46.6kg/m2 -the patient counseled about healthy lifestyle modifications and dietary habits for> 10 minutes DVT prophylaxis: Lovenox 40 mg subcutaneous daily Diet: Cardiac diet Goals of care discussed with the patient for > 27 minutes: Full code status Case discussed with Dr. Logan, patient and grand daughter Plan discussed with: Patient My Orders My Orders Orders - THOMAS SOTO RESIDENT Procedure Category Date Status Time Electrocardigram EKG 08/25/25 Logged 08:13 Electrocardigram EKG 08/25/25 Logged 09:13 Cleanse Wound With ELEONORA 08/25/25 In Process Mild Soap A 09:47 * Wound Consult CONS 08/25/25 Transmitted THOMAS SOTO RESIDENT Aug 25, 2025 15:35
[2025-08-25 16:12] LABS: Amphetamine Screen, Urine Neg (NEGATIVE); Barbiturate Scree,Urine Neg (NEGATIVE); Benzodiazephine Screen, Urine Neg (NEGATIVE); Cannabinoid Screen, Urine Neg (NEGATIVE); Cocaine Screen, Urine Neg (NEGATIVE); Opiate Scree,Urine Pos (NEGATIVE); Phencyclidine Screen, Urine Neg (NEGATIVE)
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
--- NOTE | 2025-08-27 13:42 | ECG ---
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
--- NOTE | 2025-08-27 13:45 | ECG ---
[facility] Test Date: 2025-08-25 Test Time: 15:48:33 Pat Name: MARCO CALLE Department: Respiratoy Room: 0246T B Gender: F Infection Control Coordinator: CINDY : 1960 Requested By: THOMAS SOTO Order Number: [id number] Reading MD: Guillermo Andrew Measurements Intervals [place] Rate: 45 P: 51 OK: 125 QRS: 21 QRSD: 96 T: 12 QT: 513 QTc: 444 Interpretive Statements Sinus bradycardia Low voltage, precordial leads Abnormal R-wave progression, early transition Electronically Signed On 08-29-2025 17:16:56 PST by Guillermo Andrew Please click the below link to view image of tracing.
== END 2025-08-25 19:43 | DRG 73 ==
LOC: ER 21:30 → EDBD 21:30 → OVERFLOW 08-23 00:52 → TELE-EAST 08-23 21:04
PROVIDERS: ADMIT Internal Medicine; ATTEND Internal Medicine
DX: G90.89 Other disorders of autonomic nervous system (principal); N17.0 Acute kidney failure with tubular necrosis; E87.0 Hyperosmolality and hypernatremia; R62.7 Adult failure to thrive; N39.0 Urinary tract infection, site not specified; I11.0 Hypertensive heart disease with heart failure; E66.01 Morbid (severe) obesity due to excess calories; I50.42 Chronic combined systolic (congestive) and diastolic (congestive) heart failure; Z68.42 Body mass index [BMI] 45.0-49.9, adult; E78.5 Hyperlipidemia, unspecified; E87.6 Hypokalemia; F17.210 Nicotine dependence, cigarettes, uncomplicated; S20.212A Contusion of left front wall of thorax, initial encounter; Z88.0 Allergy status to penicillin; Z88.5 Allergy status to narcotic agent; Z79.2 Long term (current) use of antibiotics; Z79.82 Long term (current) use of aspirin; Z90.710 Acquired absence of both cervix and uterus; Z90.49 Acquired absence of other specified parts of digestive tract; Z86.73 Personal history of transient ischemic attack (TIA), and cerebral infarction without residual deficits; Y93.89 Activity, other specified; Y92.89 Other specified places as the place of occurrence of the external cause; Y99.8 Other external cause status; W18.39XA Other fall on same level, initial encounter
CPT/HCPCS: 36415; 70450; 71045; 71250; 72128; 80048; 80053; 80307; 81001; 82140; 83735; 83880; 84443; 84484; 85025; 93005; 93886; 97162; G0378; J2405; Q0162